=== PATIENT | male | born 1960 | race Caucasian/White ===

== ENCOUNTER → 2019-01-21 13:45 | Outpatient (CLI) | payer OTHER, SELFPAY ==
--- NOTE | 2019-01-21 13:47 | DI.RAD.S_ITS ---
PROCEDURE: XR SCAPULA RT INDICATIONS: Characterize wing scapula TECHNIQUE: 3 views of the scapula were acquired. COMPARISON: None. FINDINGS: Bones: No fractures or dislocations. No suspicious bony lesions. Visualized ribs appear intact. Severe narrowing of the acromioclavicular joint. Soft tissues: Overlying soft tissues appear normal. IMPRESSION: No definite acute radiographic abnormality. If pain persists, consider cross sectional imaging such as CT or MRI for further assessment. Severe acromioclavicular joint degeneration. Dictated by: Shay Gordillo [facility] Interpreted: Vasyl Obregon MD on 01/21/2019 at 17:39 Approved by: Vasyl Obregon M.D. on 01/21/2019 at 17:53
[2019-01-21 14:45] LABS: Blood Urea Nitrogen 20 mg/dL (9-20); Calcium 9.7 mg/dL (8.4-10.2); Carbon Dioxide 28 mmol/L (22-32); Chloride 103 mmol/L (98-107); Cholesterol 178 mg/dL (140-199); Estimated Glomerular Filt Rate > 60.0 mL/min (>60); Glucose 86 mg/dL (70-100); HDL Cholesterol 35 mg/dL (40-60); HEMOLYSIS < 15 (0-50); LDL Cholesterol Calculated 96 mg/dL (<100); Potassium 4.1 mmol/L (3.4-5.1); Sodium 141 mmol/L (137-145); Triglycerides 235 mg/dL (35-150)
[2019-01-21 15:14] LABS: Prostate Specific Antigen Scrn 0.485 ng/mL (0.1-4.0)
[2019-01-21 21:26] LABS: Vitamin D 25 Hydroxy (D3) 36.9 ng/mL (30.0-100.0)
== END ==
PROVIDERS: PCP Student in an Organized Health Care Education/Training Program; Visit Provider Student in an Organized Health Care Education/Training Program
DX: M19.011 Primary osteoarthritis, right shoulder (principal); M95.8 Other specified acquired deformities of musculoskeletal system; E55.9 Vitamin D deficiency, unspecified; N28.9 Disorder of kidney and ureter, unspecified; Z13.220 Encounter for screening for lipoid disorders; Z12.5 Encounter for screening for malignant neoplasm of prostate
CPT/HCPCS: 36415; 73010; 80048; 80061; 82306; G0103

== ENCOUNTER → 2019-01-26 19:21 | Outpatient (CLI) | payer OTHER, SELFPAY ==
--- NOTE | 2019-01-26 19:24 | DI.MRI.S_ITS ---
PROCEDURE: MR THORACIC SPINE WO CON INDICATIONS: Long thoracic nerve lesion, h/o high thoracic compression fx TECHNIQUE: Noncontrast sagittal T1 spine echo and T2 fast spin echo, sagittal STIR, axial T1 and T2 fast spin echo through the thoracic spine. COMPARISON: None. FINDINGS: Image quality: Excellent. Alignment and Curvature: There is normal bony alignment. Bones: Loss of height noted in the T8 vertebral body compatible with compression fracture. Marrow signal the T8 vertebral body is normal indicating compression fracture is chronic. T8 compression fracture results in approximately 30% loss of normal intervertebral body height. No kyphosis or retropulsed fragments associated with the T8 compression fracture. No acute vertebral body compression fractures. No high thoracic compression fracture. Spinal Cord: Visualized spinal cord is normal in size and signal. Paraspinous Soft Tissues: No paravertebral masses. Miscellaneous: Multilevel degenerative disc changes are noted. Small right central T8-T9 disc protrusion. Mild T8-T9 central canal narrowing. Mild bilateral T8-T9 neural foraminal narrowing. No neural impingement. IMPRESSION: 1. Chronic T8 compression fracture resulting in approximately 30% loss normal vertebral body height. No acute vertebral body compression fractures. No high thoracic spine compression fracture. 2. Multilevel degenerative disease. 3. Mild T8-T9 central canal narrowing. 4. Mild bilateral T8-T9 neural foraminal narrowing. 5. No neural impingement. Dictated by: Mary Ricci MD, PhD on 01/27/2019 at 14:52 Approved by: Mary Ricci MD, PhD on 01/27/2019 at 15:02
== END ==
PROVIDERS: PCP Student in an Organized Health Care Education/Training Program; Visit Provider Student in an Organized Health Care Education/Training Program
DX: M48.54XA Collapsed vertebra, not elsewhere classified, thoracic region, initial encounter for fracture (principal); M51.34 Other intervertebral disc degeneration, thoracic region; M48.04 Spinal stenosis, thoracic region; G58.9 Mononeuropathy, unspecified
CPT/HCPCS: 72146

== ENCOUNTER → 2019-04-17 20:28 | Outpatient (CLI) | payer OTHER, SELFPAY ==
--- NOTE | 2019-04-17 20:32 | DI.MRI.S_ITS ---
PROCEDURE: MR SHOULDER RT WO CON INDICATIONS: is not making improvements inphysical therapy after 6 visits TECHNIQUE: Noncontrast oblique coronal T2 fast spin echo with fat saturation, oblique sagittal T1 spin echo and T2 fast spin echo with fat saturation, axial T1 spin echo and T2 fast spin echo with fat saturation through the shoulder. COMPARISON: None. FINDINGS: Image quality: Excellent. Rotator cuff: There is tendinosis and low-grade articular and bursal surface partial-thickness tear involving distal supraspinatus at its insertion the humeral head extending to the musculotendinous junction. Distal infraspinatus tendinosis and very low grade articular surface partial thickness tear is seen. Distal subscapularis tendinosis is also noted. Sagittal images demonstrate no significant muscle atrophy. Bones and bursae: No bone marrow contusions or fractures. Moderate acromioclavicular joint and glenohumeral joint osteoarthritic changes are seen. No pathologic subacromial-subdeltoid or subcoracoid bursal fluid is present. Capsule and soft tissues: In the absence of intra-articular contrast there is suggestion of a focal superior anterior labral tear at 12 to 1:00 position an anterior-inferior labral tear 4 to 6:00 position. The glenohumeral ligaments appear intact. The long head of the biceps tendon demonstrates normal location and morphology. The rotator interval appears normal, without fibrosis. The coracohumeral ligament is normal in thickness. IMPRESSION: 1. Tendinosis and low-grade articular bursal surface partial-thickness tear involving distal supraspinatus extending to musculotendinous junction. The supraspinatus and subscapularis tendinosis. No full-thickness rotator cuff tendon rupture. 2. Moderate acromioclavicular joint osteoarthritis and glenohumeral joint osteoarthritis. 3. Suggestion of focal superior anterior labral tear at 12 to 1:00 position and anterior-inferior labral tear 4 to 6:00 position. Dictated by: Benja Pena M.D. on 04/20/2019 at 10:22 Approved by: Benja Pena M.D. on 04/20/2019 at 10:31
== END ==
PROVIDERS: PCP Student in an Organized Health Care Education/Training Program; Visit Provider Student in an Organized Health Care Education/Training Program
DX: S24.8XXA Injury of other specified nerves of thorax, initial encounter (principal); M75.111 Incomplete rotator cuff tear or rupture of right shoulder, not specified as traumatic; M19.011 Primary osteoarthritis, right shoulder
CPT/HCPCS: 73221

== ENCOUNTER 2019-04-27 09:00 | Outpatient (RCR) | payer OTHER, SELFPAY ==
[2019-03-04 09:52] VITALS: BP 140/88
--- NOTE | 2019-03-04 12:00 | PT.OIE ---
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, initial encounter (03/04/19) Past Medical History (Last Updated 02/21/19 @ 21:19 by Belén Oquendo) Anxiety (Chronic) Depression (Chronic) GERD (gastroesophageal reflux disease) (Chronic) Shoulder pain (Chronic) Past Surgical History (Last Updated 02/21/19 @ 21:19 by Belén Oquendo) Anesthesia (Resolved) History of hernia repair (Resolved ~2011) Visit Care Team Role Provider Type Nikos Diego MD Attending Provider Physician Primary Care Provider Specialty: Internal Medicine Address: [address] [place] [address], [place] [id number] Email: [email or web address] Therapy Initial Evaluation PT-OP-A Visit Information Start: 03/04/19 09:51 Freq: Status: Active Protocol: Document 03/04/19 09:52 AW (Rec: 03/04/19 13:11 AW [email or web address]) Out-Patient Physical Therapy Visit Information Visit Information Visit Type Initial Evaluation Visit Start Time 09:01 Visit Stop Time 09:46 Total Visit Minutes 45 Visit Number 1 Number of LEATHER SCRAPER Visits 0 Evaluation Information Evaluation Date 03/04/19 PT-OP-B Current Condition Start: 03/04/19 09:51 Freq: Status: Active Protocol: Document 03/04/19 09:52 AW (Rec: 03/04/19 13:11 AW [email or web address]) Current Condition History of Current Condition Onset Date 2014 Current Complaints right scapular and neck pain History of Current Condition Don is a 58 yo right- handed man who presents to outpatient physical therapy with complaints of R shoulder pain localized to the scapula which began about 4 years ago. He has a remote history of T8 compression fracture. 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 He describes the pain as achey, 8/10 at worst, 1/10 at best. He states the pain is more noticeable at rest and that, for the most part, he can do the things he needs to do - lifting and carrying heavy weight on either shoulder. His pain tends to be worse at night, interrupting his sleep. When his pain is 8/10, it can take 2 hours to feel better. He has tried ibuprofen, hot, and cold, but nothing other than rest has been helpful to alleviate his pain. Overhead work which is required for his job makes it worse. Pt admits that life stress can increase his pain. Prior Treatments and Tests Pt has had no prior therapy for this condition. MRI last month revealed chronic T8 compression fracture with 30% loss of vertebral height, mild T8-T9 central canal narrowing , mild bilateral T8-T9 neural foramical narrowing, no neural impingement Treatment Goals Patient/Caregiver Goals Pt would like to be able to use his right arm to work overhead without having pain at rest. 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 Personal Factors Other Personal Factors That May Effect Depression, anxiety - Therapy/Recovery controlled with medication PT-OP-C Subjective Start: 03/04/19 09:51 Freq: Status: Active Protocol: Document 03/04/19 09:52 AW (Rec: 03/04/19 13:11 AW [email or web address]) OP-PT Subjective Patient Comments Patient Comments Pt is happy to work with therapy to improve his pain and function Patient Questionnaires Oswestry Low Back Index Oswestry Score 5/50 Oswestry Impairment 1 to 19% Impaired (Score 1-19) OP-PT Pain Assessment Pain Assessment Grid Paper Pain Assessment Grid Completed Yes: shaded at right superior scapula Location right superior scapula Intensity 1 Scale Used Numeric (1 - 10) Description Aching Frequency Intermittent Pain Duration 1-2 hours Pain Aggravating Factors Lifting,Anxiety Other Pain Aggravating Factors overhead activity Pain Alleviating Factors Rest Home Pain Medication Use Pain Medications Used Yes: ibuprofen Home Pain Medication Frequency no longer uses. was ineffective PT-OP-E Functional Tests Start: 03/04/19 09:51 Freq: Status: Active Protocol: Document 03/04/19 09:52 AW (Rec: 03/04/19 13:11 AW [email or web address]) Functional Tests Apley's Scratch Test Action 2- Left T4 Action 2- Right T4 Action 3- Left T8 Action 3- Right L1 PT-OP-F Manual Assessment Start: 03/04/19 09:51 Freq: Status: Active Protocol: Document 03/04/19 09:52 AW (Rec: 03/04/19 13:11 AW [email or web address]) Manual Assessments Soft Tissue Assessment Soft Tissue Mobility Assessment R levator scap insertion and right rhomboids tender to palpation. Joint Mobility Assessment Joint Mobility Assessment Glenohumeral inferior and posterior glides symmetrical left and right with no restriction Other Manual Assessments Other Manual Assessments Scapular glide tested in sidelying revealed excessive lateral glide on the right with some restriction medially PT-OP-G Mobility & Gait Start: 03/04/19 09:51 Freq: Status: Active Protocol: Document 03/04/19 09:52 AW (Rec: 03/04/19 13:11 AW [email or web address]) OP Gait Assessment Gait Gait Assistance Required: Independent Assistive Devices Assistive Device None Gait Deviations General Gait Pattern Within Normal Limits PT-OP-H Neuro Start: 03/04/19 09:51 Freq: Status: Active Protocol: Document 03/04/19 09:52 AW (Rec: 03/04/19 13:11 AW [email or web address]) Sensation Evaluation Gross Sensation Gross Sensation WNL Deep Tendon Reflex & Clonus Assessment Deep Tendon Reflex Left brachioradialis Deep Tendon Reflex 2+ Normal Right brachioradialis Deep Tendon Reflex 2+ Normal Left biceps Deep Tendon Reflex 2+ Normal Right biceps Deep Tendon Reflex 2+ Normal Vital Signs Blood Pressure Sitting Blood Pressure (90/60-120/80 mmHg) 140/88 H Blood Pressure Source Manual Cuff,Left Upper Extremity PT-OP-J Posture/Palpation/Skin Start: 03/04/19 09:51 Freq: Status: Active Protocol: Document 03/04/19 09:52 AW (Rec: 03/04/19 13:11 AW [email or web address]) Posture Evaluation Position Sitting Head/C-Spine Posture Extended,Forward Head T-Spine Posture Increased Kyphosis Shoulder Posture (L) Rounded,(R) Rounded,(L) Forward,(R) Forward Scapula Posture (L) Neutral,(R) Protracted,(R) Winged Comments Posture Comments Pt has a notable step off at the cervical/thoracic junction with forward head. R scapula sits ~3.5 from spinous processes, L scapula 3. Palpation Assessment Location right shoulder Palpation Findings Tenderness,Trigger Point Palpation Details Hypertonicity of R rhomboids. Trigger point at R levator scap insertion. PT-OP-K Range of Motion Start: 03/04/19 09:51 Freq: Status: Active Protocol: Document 03/04/19 09:52 AW (Rec: 03/04/19 13:11 AW [email or web address]) Cervical Spine Range of Motion Cervical Spine Active Degrees Testing Position Sitting Lateral Flexion Left 18 Lateral Flexion Right 18 ROM Limitations Soft Tissue Tightness Comments Flexion, extension, rotation all WFL Shoulder Goniometric Range of Motion Shoulder Left Active Testing Position Sitting Flexion 170 Abduction 168 External Rotation at 0 degrees Abduction 70 Internal Rotation Behind Back (text) T8 Right Active Testing Position Sitting Flexion 170 Abduction 165 External Rotation at 0 degrees Abduction 65 Internal Rotation Behind Back (text) L1 Elbow/Forearm Range of Motion Elbow/Forearm ROM Limitations Comments Elbow ROM WNL with no pain PT-OP-L Special Tests Start: 03/04/19 09:51 Freq: Status: Active Protocol: Document 03/04/19 09:52 AW (Rec: 03/04/19 13:11 AW [email or web address]) Special Tests Cervical Spine Special Tests Spurling's Test Test Results negative Comments bilaterally Shoulder Special Tests Empty Can Test Results negative Comments bilaterally Coles Lukas Impingement Test Results negative Comments bilaterally PT-OP-M Strength Start: 03/04/19 09:51 Freq: Status: Active Protocol: Document 03/04/19 09:52 AW (Rec: 03/04/19 13:11 AW [email or web address]) Scapula Strength Scapula Manual Muscle Testing bilateral Elevation (C4) 5 Normal Adduction 4 Good Abduction 4+ Good+ Depression 4- Good- Comments Manual muscle testing of middle and lower traps performed in supine with 4/5 MT and 4-/5 LT. Protraction tested in supine with 4/5 RUE, 4+/5 LUE. Shoulder Strength Shoulder Manual Muscle Testing Right Flexion 5 Normal Abduction (C5) 4+ Good+ External Rotation 5 Normal Internal Rotation 5 Normal Comments No pain with resistive testing Left Flexion 5 Normal Extension 5 Normal External Rotation 5 Normal Internal Rotation 5 Normal Comments Resisted external rotation produced some pain at anterior shoulder. PT-OP-Q Treatments Start: 03/04/19 09:51 Freq: Status: Active Protocol: Document 03/04/19 09:52 AW (Rec: 03/04/19 13:11 AW [email or web address]) Therapeutic Exercises Supine Exercises snow bryan stretch Supine Exercise Name snow bryan stretch Side bilateral Equipment Used rolled towel under spine Reps/Minutes 2 min Comments pt instructed to move arms up/ down in abduction until finding restriction Sitting Exercises scapular retraction Sitting Exercise Name scapular retraction Side bilateral Reps/Minutes 2x15 reps levator scapula stretch Sitting Exercise Name levator scapula stretch Side right Resistance manual Reps/Minutes 30 sec x 4 Self-Care/Home Management Treatment Education Patient Education Home Exercise Program Other Education snow bryan stretch for pecs levator scap stretch gentle scapular retraction PT-OP-T Assessment and Plan Start: 03/04/19 09:51 Freq: Status: Active Protocol: Document 03/04/19 09:52 AW (Rec: 03/04/19 13:11 AW [email or web address]) Physical Therapy Assessment Rehab Potential Rehabilitation Potential Good Evaluation Complexity Number of Personal Factors/Comorbidities 1-2 Number of Body Systems Impaired 1-2 Clinical Presentation at Evaluation Stable Impairments Impairments Activity Tolerance,Functional Activities,Pain,Posture,ROM, Soft Tissue Mobility,Strength Other Concerns Barriers to Rehabilitation Pt works long days with heavy overhead activity. Goals 4 Impairment pain Short Term Goal (STG) Pt will be able to work full day with activity modifications and report 5/10 pain or less during rest periods. STG Duration 04/01/19 Blanket Folder Goal (LTG) Pt will be able to work full day with unrestricted overhead activity and report 3/10 pain or less during rest periods 3 Impairment scapular strength Short Term Goal (STG) Pt will improve middle trap strength from 4/5 to 5/5 for improved mechanics in overhead work STG Duration 04/01/19 2 Impairment interrupted sleep Short Term Goal (STG) Pt will sleep >3/4 full night for improved healing and catholic STG Duration 03/25/19 Blanket Folder Goal (LTG) Pt will sleep full night without pain LTG Duration 04/29/19 1 Impairment lacks HEP Short Term Goal (STG) Pt will be independent with HEP. STG Duration 03/18/19 Assessment Summary Assessment Don is a 58 yo man who presents to outpatient PT with complaints of right scapular pain for 4 years. His pain is moderately irritable as he says he does not notice much pain during activity, but it worsens quickly and takes ~2 hours to feel better. On observation, his right scapula is laterally rotated at least 1/2 greater than the right with mild winging at the medial border. He also has a thickening of the bony prominence at the midpoint of the right scapular spine. Palpation reveals a trigger point at R levator scapulae insertion. Don' pain was likely precipitated by heavy, repetitive overhead work ( scraping a ceiling) which lasted about a month approximately 4 years ago. His pain is perpetuated by long work days which often involve the same motions as well as lifting and carrying heavy objects. Pt presents with middle and lower trapezius weakness, decreased upward scapular rotation on the right compared with the left, shortened pectoral fibers, and significantly rounded shoulders. Scapular protraction strength was less than in other planes, but not significantly weak. Pt is likely suffering from habitual postures, shortened pectoral muscles, hypertonicity of right levator scapulae, and poor scapular dynamics especially with overhead movements. He will benefit from skillled PT to address these impairments and to improve his ability to engage in full-time work with less pain and to improve sleep quality. Physical Therapy Plan Frequency and Duration Frequency of Treatment 2x/Week Duration of Treatment 8 weeks Plan of Care Start Date 03/04/19 Plan of Care End Date 04/29/19 Therapeutic Interventions Therapeutic Interventions Home Exercise Program,Joint Mobilizations,Manual Therapy, Neuromuscular Re-education, Patient/Caregiver Education, Self-Care/Home Management, Sensory Integration,Soft Tissue Mobilization,Taping, Therapeutic Activities, Therapeutic Exercises Modalities Cold Pack/Ice Massage,Electric Stimulation,Hot Packs Next Visit Focus/Plan Next Note Type Treatment Note Next Visit Plan Focus on pectoral and levator scap muscle length, strengthening scapular muscles , and postural awareness
--- NOTE | 2019-03-09 12:30 | PT.OTN ---
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, initial encounter (03/09/19) Physical Therapy Treatment Note PT-OP-A Visit Information Start: 03/04/19 09:51 Freq: Status: Active Protocol: Document 03/09/19 12:13 AW (Rec: 03/09/19 12:30 AW [email or web address]) Out-Patient Physical Therapy Visit Information Visit Information Visit Type Treatment Note Visit Start Time 09:00 Visit Stop Time 09:41 Total Visit Minutes 41 Visit Number 2 Number of PUMP INSTALLATION AND SERVICER Visits 0 PT-OP-B Current Condition Start: 03/04/19 09:51 Freq: Status: Active Protocol: Document 03/04/19 09:52 AW (Rec: 03/04/19 13:11 AW [email or web address]) Current Condition History of Current Condition Onset Date 2014 Current Complaints right scapular and neck pain History of Current Condition Don is a 58 yo right- handed man who presents to outpatient physical therapy with complaints of R shoulder pain localized to the scapula which began about 4 years ago. He has a remote history of T8 compression fracture. 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 He describes the pain as achey, 8/10 at worst, 1/10 at best. He states the pain is more noticeable at rest and that, for the most part, he can do the things he needs to do - lifting and carrying heavy weight on either shoulder. His pain tends to be worse at night, interrupting his sleep. When his pain is 8/10, it can take 2 hours to feel better. He has tried ibuprofen, hot, and cold, but nothing other than rest has been helpful to alleviate his pain. Overhead work which is required for his job makes it worse. Pt admits that life stress can increase his pain. Prior Treatments and Tests Pt has had no prior therapy for this condition. MRI last month revealed chronic T8 compression fracture with 30% loss of vertebral height, mild T8-T9 central canal narrowing , mild bilateral T8-T9 neural foramical narrowing, no neural impingement Treatment Goals Patient/Caregiver Goals Pt would like to be able to use his right arm to work overhead without having pain at rest. 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 Personal Factors Other Personal Factors That May Effect Depression, anxiety - Therapy/Recovery controlled with medication PT-OP-C Subjective Start: 03/04/19 09:51 Freq: Status: Active Protocol: Document 03/09/19 12:13 AW (Rec: 03/09/19 12:30 AW [email or web address]) OP-PT Subjective Patient Comments Patient Comments Jose has engaged in less overhead work this week (by chance), but continues to work long days and to experience pain at night. He is doing his HEP 2-3 times per day PT-OP-E Functional Tests Start: 03/04/19 09:51 Freq: Status: Active Protocol: Document 03/04/19 09:52 AW (Rec: 03/04/19 13:11 AW [email or web address]) Functional Tests Apley's Scratch Test Action 2- Left T4 Action 2- Right T4 Action 3- Left T8 Action 3- Right L1 PT-OP-F Manual Assessment Start: 03/04/19 09:51 Freq: Status: Active Protocol: Document 03/04/19 09:52 AW (Rec: 03/04/19 13:11 AW [email or web address]) Manual Assessments Soft Tissue Assessment Soft Tissue Mobility Assessment R levator scap insertion and right rhomboids tender to palpation. Joint Mobility Assessment Joint Mobility Assessment Glenohumeral inferior and posterior glides symmetrical left and right with no restriction Other Manual Assessments Other Manual Assessments Scapular glide tested in sidelying revealed excessive lateral glide on the right with some restriction medially PT-OP-G Mobility & Gait Start: 03/04/19 09:51 Freq: Status: Active Protocol: Document 03/04/19 09:52 AW (Rec: 03/04/19 13:11 AW [email or web address]) OP Gait Assessment Gait Gait Assistance Required: Independent Assistive Devices Assistive Device None Gait Deviations General Gait Pattern Within Normal Limits PT-OP-H Neuro Start: 03/04/19 09:51 Freq: Status: Active Protocol: Document 03/04/19 09:52 AW (Rec: 03/04/19 13:11 AW [email or web address]) Sensation Evaluation Gross Sensation Gross Sensation WNL Deep Tendon Reflex & Clonus Assessment Deep Tendon Reflex Left brachioradialis Deep Tendon Reflex 2+ Normal Right brachioradialis Deep Tendon Reflex 2+ Normal Left biceps Deep Tendon Reflex 2+ Normal Right biceps Deep Tendon Reflex 2+ Normal Vital Signs Blood Pressure Sitting Blood Pressure (90/60-120/80 mmHg) 140/88 H Blood Pressure Source Manual Cuff,Left Upper Extremity PT-OP-J Posture/Palpation/Skin Start: 03/04/19 09:51 Freq: Status: Active Protocol: Document 03/04/19 09:52 AW (Rec: 03/04/19 13:11 AW [email or web address]) Posture Evaluation Position Sitting Head/C-Spine Posture Extended,Forward Head T-Spine Posture Increased Kyphosis Shoulder Posture (L) Rounded,(R) Rounded,(L) Forward,(R) Forward Scapula Posture (L) Neutral,(R) Protracted,(R) Winged Comments Posture Comments Pt has a notable step off at the cervical/thoracic junction with forward head. R scapula sits ~3.5 from spinous processes, L scapula 3. Palpation Assessment Location right shoulder Palpation Findings Tenderness,Trigger Point Palpation Details Hypertonicity of R rhomboids. Trigger point at R levator scap insertion. PT-OP-K Range of Motion Start: 03/04/19 09:51 Freq: Status: Active Protocol: Document 03/04/19 09:52 AW (Rec: 03/04/19 13:11 AW [email or web address]) Cervical Spine Range of Motion Cervical Spine Active Degrees Testing Position Sitting Lateral Flexion Left 18 Lateral Flexion Right 18 ROM Limitations Soft Tissue Tightness Comments Flexion, extension, rotation all WFL Shoulder Goniometric Range of Motion Shoulder Left Active Testing Position Sitting Flexion 170 Abduction 168 External Rotation at 0 degrees Abduction 70 Internal Rotation Behind Back (text) T8 Right Active Testing Position Sitting Flexion 170 Abduction 165 External Rotation at 0 degrees Abduction 65 Internal Rotation Behind Back (text) L1 Elbow/Forearm Range of Motion Elbow/Forearm ROM Limitations Comments Elbow ROM WNL with no pain PT-OP-L Special Tests Start: 03/04/19 09:51 Freq: Status: Active Protocol: Document 03/04/19 09:52 AW (Rec: 03/04/19 13:11 AW [email or web address]) Special Tests Cervical Spine Special Tests Spurling's Test Test Results negative Comments bilaterally Shoulder Special Tests Empty Can Test Results negative Comments bilaterally Coles Lukas Impingement Test Results negative Comments bilaterally PT-OP-M Strength Start: 03/04/19 09:51 Freq: Status: Active Protocol: Document 03/04/19 09:52 AW (Rec: 03/04/19 13:11 AW [email or web address]) Scapula Strength Scapula Manual Muscle Testing bilateral Elevation (C4) 5 Normal Adduction 4 Good Abduction 4+ Good+ Depression 4- Good- Comments Manual muscle testing of middle and lower traps performed in supine with 4/5 MT and 4-/5 LT. Protraction tested in supine with 4/5 RUE, 4+/5 LUE. Shoulder Strength Shoulder Manual Muscle Testing Right Flexion 5 Normal Abduction (C5) 4+ Good+ External Rotation 5 Normal Internal Rotation 5 Normal Comments No pain with resistive testing Left Flexion 5 Normal Extension 5 Normal External Rotation 5 Normal Internal Rotation 5 Normal Comments Resisted external rotation produced some pain at anterior shoulder. PT-OP-Q Treatments Start: 03/04/19 09:51 Freq: Status: Active Protocol: Document 03/09/19 12:13 AW (Rec: 03/09/19 12:30 AW [email or web address]) Cardio Equipment Upper Body Ergometer (UBE) Duration (Minutes) 6 RPM 60 Height 5 Therapeutic Exercises Supine Exercises deep neck flexor endurance Supine Exercise Name deep neck flexor endurance Side bilateral Reps/Minutes 10 second hold x 8 Comments holding head off table with chin tuck until SCM takes over ; added to HEP Prone Exercises prone GH extension Prone Exercise Name prone GH extension Side bilateral Reps/Minutes 2x10 reps Comments pt cued to focus on scapular retraction Sidelying Exercises depression/retraction Sidelying Exercise Name depression/retraction Side right Resistance manual Reps/Minutes 3x10 reps Comments left sidelying;quick stretch into elev/prot with cues to pull back vs resis Sitting Exercises cervical retraction Sitting Exercise Name cervical retraction Side bilateral Reps/Minutes 2x10 reps scapular retraction Sitting Exercise Name scapular retraction Side bilateral Reps/Minutes 2x15 reps Manual Therapy Treatment Soft Tissue Mobilization cervical, R rhomboids, R levator scap Body Location cervical, R rhomboids, R levator scap Mobilization Type Myofascial Release,Sustained Pressure,Trigger Point Release Intensity/Depth Moderate Comments global cervical paraspinals and subocc; specific attention to R levator scap trigger point; pin and stretch R lev scap; bilateral upper trap manual stretch Self-Care/Home Management Treatment Education Patient Education Home Exercise Program Other Education snow bryan stretch for pecs levator scap stretch gentle scapular retraction ADDED: deep cervical flexor endurance PT-OP-T Assessment and Plan Start: 03/04/19 09:51 Freq: Status: Active Protocol: Document 03/09/19 12:13 AW (Rec: 03/09/19 12:30 AW [email or web address]) Physical Therapy Assessment Assessment Summary Assessment Jose denies any worsening of symptoms in past week. He is tolerating HEP well. Scapular dyskinesis, levator scap decreased length and heavy upper trap recruitment contributing to onoing pain. Physical Therapy Plan Next Visit Focus/Plan Next Note Type Treatment Note Next Visit Plan Continue to focus on pectoral and levator scap muscle length , strengthening scapular muscles, and postural awareness
--- NOTE | 2019-03-11 12:08 | PT.OTN ---
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, initial encounter (03/11/19) Physical Therapy Treatment Note PT-OP-A Visit Information Start: 03/04/19 09:51 Freq: Status: Active Protocol: Document 03/11/19 11:42 AW (Rec: 03/11/19 12:08 AW [email or web address]) Out-Patient Physical Therapy Visit Information Visit Information Visit Type Treatment Note Visit Start Time 09:00 Visit Stop Time 09:39 Total Visit Minutes 39 Visit Number 3 Number of FOOD INSPECTOR Visits 0 PT-OP-B Current Condition Start: 03/04/19 09:51 Freq: Status: Active Protocol: Document 03/04/19 09:52 AW (Rec: 03/04/19 13:11 AW [email or web address]) Current Condition History of Current Condition Onset Date 2014 Current Complaints right scapular and neck pain History of Current Condition Don is a 58 yo right- handed man who presents to outpatient physical therapy with complaints of R shoulder pain localized to the scapula which began about 4 years ago. He has a remote history of T8 compression fracture. 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 He describes the pain as achey, 8/10 at worst, 1/10 at best. He states the pain is more noticeable at rest and that, for the most part, he can do the things he needs to do - lifting and carrying heavy weight on either shoulder. His pain tends to be worse at night, interrupting his sleep. When his pain is 8/10, it can take 2 hours to feel better. He has tried ibuprofen, hot, and cold, but nothing other than rest has been helpful to alleviate his pain. Overhead work which is required for his job makes it worse. Pt admits that life stress can increase his pain. Prior Treatments and Tests Pt has had no prior therapy for this condition. MRI last month revealed chronic T8 compression fracture with 30% loss of vertebral height, mild T8-T9 central canal narrowing , mild bilateral T8-T9 neural foramical narrowing, no neural impingement Treatment Goals Patient/Caregiver Goals Pt would like to be able to use his right arm to work overhead without having pain at rest. 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 Personal Factors Other Personal Factors That May Effect Depression, anxiety - Therapy/Recovery controlled with medication PT-OP-C Subjective Start: 03/04/19 09:51 Freq: Status: Active Protocol: Document 03/11/19 11:42 AW (Rec: 03/11/19 12:08 AW [email or web address]) OP-PT Subjective Patient Comments Patient Comments Jose reports doing his HEP at least once per day. He continues to work long days involving lifting, but has declined much overhead work lately. He is still experiencing pain when he arrives home from work. PT-OP-E Functional Tests Start: 03/04/19 09:51 Freq: Status: Active Protocol: Document 03/04/19 09:52 AW (Rec: 03/04/19 13:11 AW [email or web address]) Functional Tests Apley's Scratch Test Action 2- Left T4 Action 2- Right T4 Action 3- Left T8 Action 3- Right L1 PT-OP-F Manual Assessment Start: 03/04/19 09:51 Freq: Status: Active Protocol: Document 03/04/19 09:52 AW (Rec: 03/04/19 13:11 AW [email or web address]) Manual Assessments Soft Tissue Assessment Soft Tissue Mobility Assessment R levator scap insertion and right rhomboids tender to palpation. Joint Mobility Assessment Joint Mobility Assessment Glenohumeral inferior and posterior glides symmetrical left and right with no restriction Other Manual Assessments Other Manual Assessments Scapular glide tested in sidelying revealed excessive lateral glide on the right with some restriction medially PT-OP-G Mobility & Gait Start: 03/04/19 09:51 Freq: Status: Active Protocol: Document 03/04/19 09:52 AW (Rec: 03/04/19 13:11 AW [email or web address]) OP Gait Assessment Gait Gait Assistance Required: Independent Assistive Devices Assistive Device None Gait Deviations General Gait Pattern Within Normal Limits PT-OP-H Neuro Start: 03/04/19 09:51 Freq: Status: Active Protocol: Document 03/04/19 09:52 AW (Rec: 03/04/19 13:11 AW [email or web address]) Sensation Evaluation Gross Sensation Gross Sensation WNL Deep Tendon Reflex & Clonus Assessment Deep Tendon Reflex Left brachioradialis Deep Tendon Reflex 2+ Normal Right brachioradialis Deep Tendon Reflex 2+ Normal Left biceps Deep Tendon Reflex 2+ Normal Right biceps Deep Tendon Reflex 2+ Normal Vital Signs Blood Pressure Sitting Blood Pressure (90/60-120/80 mmHg) 140/88 H Blood Pressure Source Manual Cuff,Left Upper Extremity PT-OP-J Posture/Palpation/Skin Start: 03/04/19 09:51 Freq: Status: Active Protocol: Document 03/04/19 09:52 AW (Rec: 03/04/19 13:11 AW [email or web address]) Posture Evaluation Position Sitting Head/C-Spine Posture Extended,Forward Head T-Spine Posture Increased Kyphosis Shoulder Posture (L) Rounded,(R) Rounded,(L) Forward,(R) Forward Scapula Posture (L) Neutral,(R) Protracted,(R) Winged Comments Posture Comments Pt has a notable step off at the cervical/thoracic junction with forward head. R scapula sits ~3.5 from spinous processes, L scapula 3. Palpation Assessment Location right shoulder Palpation Findings Tenderness,Trigger Point Palpation Details Hypertonicity of R rhomboids. Trigger point at R levator scap insertion. PT-OP-K Range of Motion Start: 03/04/19 09:51 Freq: Status: Active Protocol: Document 03/04/19 09:52 AW (Rec: 03/04/19 13:11 AW [email or web address]) Cervical Spine Range of Motion Cervical Spine Active Degrees Testing Position Sitting Lateral Flexion Left 18 Lateral Flexion Right 18 ROM Limitations Soft Tissue Tightness Comments Flexion, extension, rotation all WFL Shoulder Goniometric Range of Motion Shoulder Left Active Testing Position Sitting Flexion 170 Abduction 168 External Rotation at 0 degrees Abduction 70 Internal Rotation Behind Back (text) T8 Right Active Testing Position Sitting Flexion 170 Abduction 165 External Rotation at 0 degrees Abduction 65 Internal Rotation Behind Back (text) L1 Elbow/Forearm Range of Motion Elbow/Forearm ROM Limitations Comments Elbow ROM WNL with no pain PT-OP-L Special Tests Start: 03/04/19 09:51 Freq: Status: Active Protocol: Document 03/04/19 09:52 AW (Rec: 03/04/19 13:11 AW [email or web address]) Special Tests Cervical Spine Special Tests Spurling's Test Test Results negative Comments bilaterally Shoulder Special Tests Empty Can Test Results negative Comments bilaterally Coles Lukas Impingement Test Results negative Comments bilaterally PT-OP-M Strength Start: 03/04/19 09:51 Freq: Status: Active Protocol: Document 03/04/19 09:52 AW (Rec: 03/04/19 13:11 AW [email or web address]) Scapula Strength Scapula Manual Muscle Testing bilateral Elevation (C4) 5 Normal Adduction 4 Good Abduction 4+ Good+ Depression 4- Good- Comments Manual muscle testing of middle and lower traps performed in supine with 4/5 MT and 4-/5 LT. Protraction tested in supine with 4/5 RUE, 4+/5 LUE. Shoulder Strength Shoulder Manual Muscle Testing Right Flexion 5 Normal Abduction (C5) 4+ Good+ External Rotation 5 Normal Internal Rotation 5 Normal Comments No pain with resistive testing Left Flexion 5 Normal Extension 5 Normal External Rotation 5 Normal Internal Rotation 5 Normal Comments Resisted external rotation produced some pain at anterior shoulder. PT-OP-Q Treatments Start: 03/04/19 09:51 Freq: Status: Active Protocol: Document 03/11/19 11:42 AW (Rec: 03/11/19 12:08 AW [email or web address]) Therapeutic Exercises Supine Exercises deep neck flexor endurance Supine Exercise Name deep neck flexor endurance Side bilateral Reps/Minutes 10 second hold x 6 Comments added to HEP Prone Exercises prone GH extension Prone Exercise Name prone GH extension Side bilateral Resistance 4# db Reps/Minutes 2x10 reps Comments improved scapular posture with fewer cues Sidelying Exercises depression/retraction Sidelying Exercise Name depression/retraction Side right Resistance manual Reps/Minutes 2x10 reps Comments left sidelying;quick stretch into elev/prot with cues to pull back vs resis Sitting Exercises upper trap stretch Sitting Exercise Name upper trap stretch Side bilateral Resistance manual Reps/Minutes 30 second hold x 4 Comments added to HEP pulleys Sitting Exercise Name pulleys Side bilateral Reps/Minutes 5 minutes Comments flexion, abduction, scaption with cues for shoulder posture Therapeutic Activity Therapeutic Activity diaphragmatic breathing Name diaphragmatic breathing Reps/Minutes 8 minutes Comments Provided education on parasympathetic response to stress and relationship to pain along with education on muscles of respiration. Introduced diaphragmatic breathing for stress relief. Manual Therapy Treatment Soft Tissue Mobilization cervical, R rhomboids, R levator scap Body Location cervical, R rhomboids, R levator scap Mobilization Type Myofascial Release,Sustained Pressure,Trigger Point Release Intensity/Depth Moderate Comments global cervical paraspinals and subocc; R lev scap less irritable/dense today; pin and stretch R lev scap; bilateral upper trap manual stretch Self-Care/Home Management Treatment Education Patient Education Home Exercise Program Other Education snow bryan stretch for pecs levator scap stretch gentle scapular retraction deep cervical flexor endurance ADDED: seated upper trap stretch PT-OP-T Assessment and Plan Start: 03/04/19 09:51 Freq: Status: Active Protocol: Document 03/11/19 11:42 AW (Rec: 03/11/19 12:08 AW [email or web address]) Physical Therapy Assessment Assessment Summary Assessment Pt's pattern of pain symptoms (none with activity, increased with rest periods/stressful thoughts) may be be improved with physiological quieting techniques. Spent time today introducing diaphragmatic breathing techniques and encouraged pt to spend 5 minutes upon return to home at night focusing on quiet breathing. Physical Therapy Plan Frequency and Duration Frequency of Treatment 2x/Week Duration of Treatment 8 weeks Plan of Care Start Date 03/04/19 Plan of Care End Date 04/29/19 Therapeutic Interventions Therapeutic Interventions Home Exercise Program,Joint Mobilizations,Manual Therapy, Neuromuscular Re-education, Patient/Caregiver Education, Self-Care/Home Management, Sensory Integration,Soft Tissue Mobilization,Taping, Therapeutic Activities, Therapeutic Exercises Modalities Cold Pack/Ice Massage,Electric Stimulation,Hot Packs Next Visit Focus/Plan Next Note Type Treatment Note Next Visit Plan Inquire about effect of breathing exercises on overall pain. Continue to focus on muscle length, strength of scapular muscles, and postural awareness
--- NOTE | 2019-03-16 17:35 | PT.OTN ---
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, initial encounter (03/16/19) Physical Therapy Treatment Note PT-OP-A Visit Information Start: 03/04/19 09:51 Freq: Status: Active Protocol: Document 03/16/19 17:19 AW (Rec: 03/16/19 17:35 AW [email or web address]) Out-Patient Physical Therapy Visit Information Visit Information Visit Type Treatment Note Visit Start Time 09:00 Visit Stop Time 09:43 Total Visit Minutes 43 Visit Number 4 Number of COPPER MINER BLASTING Visits 0 PT-OP-B Current Condition Start: 03/04/19 09:51 Freq: Status: Active Protocol: Document 03/04/19 09:52 AW (Rec: 03/04/19 13:11 AW [email or web address]) Current Condition History of Current Condition Onset Date 2014 Current Complaints right scapular and neck pain History of Current Condition Don is a 58 yo right- handed man who presents to outpatient physical therapy with complaints of R shoulder pain localized to the scapula which began about 4 years ago. He has a remote history of T8 compression fracture. 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 He describes the pain as achey, 8/10 at worst, 1/10 at best. He states the pain is more noticeable at rest and that, for the most part, he can do the things he needs to do - lifting and carrying heavy weight on either shoulder. His pain tends to be worse at night, interrupting his sleep. When his pain is 8/10, it can take 2 hours to feel better. He has tried ibuprofen, hot, and cold, but nothing other than rest has been helpful to alleviate his pain. Overhead work which is required for his job makes it worse. Pt admits that life stress can increase his pain. Prior Treatments and Tests Pt has had no prior therapy for this condition. MRI last month revealed chronic T8 compression fracture with 30% loss of vertebral height, mild T8-T9 central canal narrowing , mild bilateral T8-T9 neural foramical narrowing, no neural impingement Treatment Goals Patient/Caregiver Goals Pt would like to be able to use his right arm to work overhead without having pain at rest. 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 Personal Factors Other Personal Factors That May Effect Depression, anxiety - Therapy/Recovery controlled with medication PT-OP-C Subjective Start: 03/04/19 09:51 Freq: Status: Active Protocol: Document 03/16/19 17:19 AW (Rec: 03/16/19 17:35 AW [email or web address]) OP-PT Subjective Patient Comments Patient Comments Jose spent Saturday working on his back underneath a sink with his arms overhead. When he came home that night, he was flared up. He has been trying to incorporate diaphragmatic breathing techniques when noticing stress and he beleives it has been somewhat helpful. PT-OP-E Functional Tests Start: 03/04/19 09:51 Freq: Status: Active Protocol: Document 03/04/19 09:52 AW (Rec: 03/04/19 13:11 AW [email or web address]) Functional Tests Apley's Scratch Test Action 2- Left T4 Action 2- Right T4 Action 3- Left T8 Action 3- Right L1 PT-OP-F Manual Assessment Start: 03/04/19 09:51 Freq: Status: Active Protocol: Document 03/04/19 09:52 AW (Rec: 03/04/19 13:11 AW [email or web address]) Manual Assessments Soft Tissue Assessment Soft Tissue Mobility Assessment R levator scap insertion and right rhomboids tender to palpation. Joint Mobility Assessment Joint Mobility Assessment Glenohumeral inferior and posterior glides symmetrical left and right with no restriction Other Manual Assessments Other Manual Assessments Scapular glide tested in sidelying revealed excessive lateral glide on the right with some restriction medially PT-OP-G Mobility & Gait Start: 03/04/19 09:51 Freq: Status: Active Protocol: Document 03/04/19 09:52 AW (Rec: 03/04/19 13:11 AW [email or web address]) OP Gait Assessment Gait Gait Assistance Required: Independent Assistive Devices Assistive Device None Gait Deviations General Gait Pattern Within Normal Limits PT-OP-H Neuro Start: 03/04/19 09:51 Freq: Status: Active Protocol: Document 03/04/19 09:52 AW (Rec: 03/04/19 13:11 AW [email or web address]) Sensation Evaluation Gross Sensation Gross Sensation WNL Deep Tendon Reflex & Clonus Assessment Deep Tendon Reflex Left brachioradialis Deep Tendon Reflex 2+ Normal Right brachioradialis Deep Tendon Reflex 2+ Normal Left biceps Deep Tendon Reflex 2+ Normal Right biceps Deep Tendon Reflex 2+ Normal Vital Signs Blood Pressure Sitting Blood Pressure (90/60-120/80 mmHg) 140/88 H Blood Pressure Source Manual Cuff,Left Upper Extremity PT-OP-J Posture/Palpation/Skin Start: 03/04/19 09:51 Freq: Status: Active Protocol: Document 03/04/19 09:52 AW (Rec: 03/04/19 13:11 AW [email or web address]) Posture Evaluation Position Sitting Head/C-Spine Posture Extended,Forward Head T-Spine Posture Increased Kyphosis Shoulder Posture (L) Rounded,(R) Rounded,(L) Forward,(R) Forward Scapula Posture (L) Neutral,(R) Protracted,(R) Winged Comments Posture Comments Pt has a notable step off at the cervical/thoracic junction with forward head. R scapula sits ~3.5 from spinous processes, L scapula 3. Palpation Assessment Location right shoulder Palpation Findings Tenderness,Trigger Point Palpation Details Hypertonicity of R rhomboids. Trigger point at R levator scap insertion. PT-OP-K Range of Motion Start: 03/04/19 09:51 Freq: Status: Active Protocol: Document 03/04/19 09:52 AW (Rec: 03/04/19 13:11 AW [email or web address]) Cervical Spine Range of Motion Cervical Spine Active Degrees Testing Position Sitting Lateral Flexion Left 18 Lateral Flexion Right 18 ROM Limitations Soft Tissue Tightness Comments Flexion, extension, rotation all WFL Shoulder Goniometric Range of Motion Shoulder Left Active Testing Position Sitting Flexion 170 Abduction 168 External Rotation at 0 degrees Abduction 70 Internal Rotation Behind Back (text) T8 Right Active Testing Position Sitting Flexion 170 Abduction 165 External Rotation at 0 degrees Abduction 65 Internal Rotation Behind Back (text) L1 Elbow/Forearm Range of Motion Elbow/Forearm ROM Limitations Comments Elbow ROM WNL with no pain PT-OP-L Special Tests Start: 03/04/19 09:51 Freq: Status: Active Protocol: Document 03/04/19 09:52 AW (Rec: 03/04/19 13:11 AW [email or web address]) Special Tests Cervical Spine Special Tests Spurling's Test Test Results negative Comments bilaterally Shoulder Special Tests Empty Can Test Results negative Comments bilaterally Coles Lukas Impingement Test Results negative Comments bilaterally PT-OP-M Strength Start: 03/04/19 09:51 Freq: Status: Active Protocol: Document 03/04/19 09:52 AW (Rec: 03/04/19 13:11 AW [email or web address]) Scapula Strength Scapula Manual Muscle Testing bilateral Elevation (C4) 5 Normal Adduction 4 Good Abduction 4+ Good+ Depression 4- Good- Comments Manual muscle testing of middle and lower traps performed in supine with 4/5 MT and 4-/5 LT. Protraction tested in supine with 4/5 RUE, 4+/5 LUE. Shoulder Strength Shoulder Manual Muscle Testing Right Flexion 5 Normal Abduction (C5) 4+ Good+ External Rotation 5 Normal Internal Rotation 5 Normal Comments No pain with resistive testing Left Flexion 5 Normal Extension 5 Normal External Rotation 5 Normal Internal Rotation 5 Normal Comments Resisted external rotation produced some pain at anterior shoulder. PT-OP-Q Treatments Start: 03/04/19 09:51 Freq: Status: Active Protocol: Document 03/16/19 17:19 AW (Rec: 03/16/19 17:35 AW [email or web address]) Cardio Equipment Upper Body Ergometer (UBE) Duration (Minutes) 6 RPM 75 Height 5 Therapeutic Exercises Supine Exercises scapular protraction Supine Exercise Name scapular protraction Side bilateral Resistance 5# db Reps/Minutes 3x15 reps Comments RUE lags behind, cues for equal punch bilat Prone Exercises prone Y Prone Exercise Name prone Y lift Side bilateral Reps/Minutes 2x10 reps Comments cues for scapular posture prone W Prone Exercise Name prone W lift Side bilateral Reps/Minutes 2x10 reps Standing Exercises shoulder extension Standing Exercise Name shoulder extension Side bilateral Resistance level 3 TB Reps/Minutes 2x15 reps Comments cues for scap retraction shoulder row Standing Exercise Name shoulder row Side bilateral Resistance level 3 TB Reps/Minutes 2x15 reps Comments cues for scapular retraction resisted protraction Standing Exercise Name resisted protraction Side right Resistance manual Reps/Minutes 2x10 reps Comments pt hand on wall, cued to protract; PT manually retracting/down rotating Manual Therapy Treatment Soft Tissue Mobilization cervical, R rhomboids, R levator scap Body Location cervical, R rhomboids, R levator scap Mobilization Type Myofascial Release,Sustained Pressure,Trigger Point Release Intensity/Depth Moderate Body Position Hooklying Comments global cervical paraspinals and subocc; R lev scap less irritable/dense today; pin and stretch R lev scap; bilateral upper trap manual stretch Self-Care/Home Management Treatment Education Patient Education Home Exercise Program Other Education snow bryan stretch for pecs levator scap stretch gentle scapular retraction deep cervical flexor endurance seated upper trap stretch ADDED: TB retraction, TB shoulder extension, supine scapular protraction PT-OP-T Assessment and Plan Start: 03/04/19 09:51 Freq: Status: Active Protocol: Document 03/16/19 17:19 AW (Rec: 03/16/19 17:35 AW [email or web address]) Physical Therapy Assessment Goals 4 Impairment pain Short Term Goal (STG) Pt will be able to work full day with activity modifications and report 5/10 pain or less during rest periods. STG Duration 04/01/19 Half-Way Goal (LTG) Pt will be able to work full day with unrestricted overhead activity and report 3/10 pain or less during rest periods 3 Impairment scapular strength Short Term Goal (STG) Pt will improve middle trap strength from 4/5 to 5/5 for improved mechanics in overhead work STG Duration 04/01/19 2 Impairment interrupted sleep Short Term Goal (STG) Pt will sleep >3/4 full night for improved healing and rastafarian STG Duration 03/25/19 Half-Way Goal (LTG) Pt will sleep full night without pain LTG Duration 04/29/19 1 Impairment lacks HEP Short Term Goal (STG) Pt will be independent with HEP. STG Duration 03/18/19 Assessment Summary Assessment Pt agrees that breathing exercises have helped manage his pain somewhat. His symptoms have been less irritable, with him able to work longer hours with less pain as long as he limits overhead work. Today's session progressed scapular strengthening. Physical Therapy Plan Frequency and Duration Frequency of Treatment 2x/Week Duration of Treatment 8 weeks Plan of Care Start Date 03/04/19 Plan of Care End Date 04/29/19 Therapeutic Interventions Therapeutic Interventions Home Exercise Program,Joint Mobilizations,Manual Therapy, Neuromuscular Re-education, Patient/Caregiver Education, Self-Care/Home Management, Sensory Integration,Soft Tissue Mobilization,Taping, Therapeutic Activities, Therapeutic Exercises Modalities Cold Pack/Ice Massage,Electric Stimulation,Hot Packs Next Visit Focus/Plan Next Note Type Treatment Note Next Visit Plan Progress scapular strengthening and postural awareness with functional activities. Continue to incorporate breathing exercises.
--- NOTE | 2019-03-18 11:50 | PT.OTN ---
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, initial encounter (03/18/19) Physical Therapy Treatment Note PT-OP-A Visit Information Start: 03/04/19 09:51 Freq: Status: Active Protocol: Document 03/18/19 09:42 AW (Rec: 03/18/19 11:49 AW [email or web address]) Out-Patient Physical Therapy Visit Information Visit Information Visit Type Treatment Note Visit Start Time 09:00 Visit Stop Time 09:40 Total Visit Minutes 40 Visit Number 5 Number of PHERESIS SPECIALIST Visits 0 PT-OP-B Current Condition Start: 03/04/19 09:51 Freq: Status: Active Protocol: Document 03/04/19 09:52 AW (Rec: 03/04/19 13:11 AW [email or web address]) Current Condition History of Current Condition Onset Date 2014 Current Complaints right scapular and neck pain History of Current Condition Don is a 58 yo right- handed man who presents to outpatient physical therapy with complaints of R shoulder pain localized to the scapula which began about 4 years ago. He has a remote history of T8 compression fracture. 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 He describes the pain as achey, 8/10 at worst, 1/10 at best. He states the pain is more noticeable at rest and that, for the most part, he can do the things he needs to do - lifting and carrying heavy weight on either shoulder. His pain tends to be worse at night, interrupting his sleep. When his pain is 8/10, it can take 2 hours to feel better. He has tried ibuprofen, hot, and cold, but nothing other than rest has been helpful to alleviate his pain. Overhead work which is required for his job makes it worse. Pt admits that life stress can increase his pain. Prior Treatments and Tests Pt has had no prior therapy for this condition. MRI last month revealed chronic T8 compression fracture with 30% loss of vertebral height, mild T8-T9 central canal narrowing , mild bilateral T8-T9 neural foramical narrowing, no neural impingement Treatment Goals Patient/Caregiver Goals Pt would like to be able to use his right arm to work overhead without having pain at rest. 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 Personal Factors Other Personal Factors That May Effect Depression, anxiety - Therapy/Recovery controlled with medication PT-OP-C Subjective Start: 03/04/19 09:51 Freq: Status: Active Protocol: Document 03/18/19 09:42 AW (Rec: 03/18/19 11:49 AW [email or web address]) OP-PT Subjective Patient Comments Patient Comments Jose reports less pain at night which he possibly attributes to working on less stressful jobs this week with less overhead work. He reports noticing right lateral shoulder tingling associated with looking to the right. PT-OP-E Functional Tests Start: 03/04/19 09:51 Freq: Status: Active Protocol: Document 03/04/19 09:52 AW (Rec: 03/04/19 13:11 AW [email or web address]) Functional Tests Apley's Scratch Test Action 2- Left T4 Action 2- Right T4 Action 3- Left T8 Action 3- Right L1 PT-OP-F Manual Assessment Start: 03/04/19 09:51 Freq: Status: Active Protocol: Document 03/04/19 09:52 AW (Rec: 03/04/19 13:11 AW [email or web address]) Manual Assessments Soft Tissue Assessment Soft Tissue Mobility Assessment R levator scap insertion and right rhomboids tender to palpation. Joint Mobility Assessment Joint Mobility Assessment Glenohumeral inferior and posterior glides symmetrical left and right with no restriction Other Manual Assessments Other Manual Assessments Scapular glide tested in sidelying revealed excessive lateral glide on the right with some restriction medially PT-OP-G Mobility & Gait Start: 03/04/19 09:51 Freq: Status: Active Protocol: Document 03/04/19 09:52 AW (Rec: 03/04/19 13:11 AW [email or web address]) OP Gait Assessment Gait Gait Assistance Required: Independent Assistive Devices Assistive Device None Gait Deviations General Gait Pattern Within Normal Limits PT-OP-H Neuro Start: 03/04/19 09:51 Freq: Status: Active Protocol: Document 03/04/19 09:52 AW (Rec: 03/04/19 13:11 AW [email or web address]) Sensation Evaluation Gross Sensation Gross Sensation WNL Deep Tendon Reflex & Clonus Assessment Deep Tendon Reflex Left brachioradialis Deep Tendon Reflex 2+ Normal Right brachioradialis Deep Tendon Reflex 2+ Normal Left biceps Deep Tendon Reflex 2+ Normal Right biceps Deep Tendon Reflex 2+ Normal Vital Signs Blood Pressure Sitting Blood Pressure (90/60-120/80 mmHg) 140/88 H Blood Pressure Source Manual Cuff,Left Upper Extremity PT-OP-J Posture/Palpation/Skin Start: 03/04/19 09:51 Freq: Status: Active Protocol: Document 03/04/19 09:52 AW (Rec: 03/04/19 13:11 AW [email or web address]) Posture Evaluation Position Sitting Head/C-Spine Posture Extended,Forward Head T-Spine Posture Increased Kyphosis Shoulder Posture (L) Rounded,(R) Rounded,(L) Forward,(R) Forward Scapula Posture (L) Neutral,(R) Protracted,(R) Winged Comments Posture Comments Pt has a notable step off at the cervical/thoracic junction with forward head. R scapula sits ~3.5 from spinous processes, L scapula 3. Palpation Assessment Location right shoulder Palpation Findings Tenderness,Trigger Point Palpation Details Hypertonicity of R rhomboids. Trigger point at R levator scap insertion. PT-OP-K Range of Motion Start: 03/04/19 09:51 Freq: Status: Active Protocol: Document 03/04/19 09:52 AW (Rec: 03/04/19 13:11 AW [email or web address]) Cervical Spine Range of Motion Cervical Spine Active Degrees Testing Position Sitting Lateral Flexion Left 18 Lateral Flexion Right 18 ROM Limitations Soft Tissue Tightness Comments Flexion, extension, rotation all WFL Shoulder Goniometric Range of Motion Shoulder Left Active Testing Position Sitting Flexion 170 Abduction 168 External Rotation at 0 degrees Abduction 70 Internal Rotation Behind Back (text) T8 Right Active Testing Position Sitting Flexion 170 Abduction 165 External Rotation at 0 degrees Abduction 65 Internal Rotation Behind Back (text) L1 Elbow/Forearm Range of Motion Elbow/Forearm ROM Limitations Comments Elbow ROM WNL with no pain PT-OP-L Special Tests Start: 03/04/19 09:51 Freq: Status: Active Protocol: Document 03/04/19 09:52 AW (Rec: 03/04/19 13:11 AW [email or web address]) Special Tests Cervical Spine Special Tests Spurling's Test Test Results negative Comments bilaterally Shoulder Special Tests Empty Can Test Results negative Comments bilaterally Coels Lukas Impingement Test Results negative Comments bilaterally PT-OP-M Strength Start: 03/04/19 09:51 Freq: Status: Active Protocol: Document 03/04/19 09:52 AW (Rec: 03/04/19 13:11 AW [email or web address]) Scapula Strength Scapula Manual Muscle Testing bilateral Elevation (C4) 5 Normal Adduction 4 Good Abduction 4+ Good+ Depression 4- Good- Comments Manual muscle testing of middle and lower traps performed in supine with 4/5 MT and 4-/5 LT. Protraction tested in supine with 4/5 RUE, 4+/5 LUE. Shoulder Strength Shoulder Manual Muscle Testing Right Flexion 5 Normal Abduction (C5) 4+ Good+ External Rotation 5 Normal Internal Rotation 5 Normal Comments No pain with resistive testing Left Flexion 5 Normal Extension 5 Normal External Rotation 5 Normal Internal Rotation 5 Normal Comments Resisted external rotation produced some pain at anterior shoulder. PT-OP-Q Treatments Start: 03/04/19 09:51 Freq: Status: Active Protocol: Document 03/18/19 09:42 AW (Rec: 03/18/19 11:49 AW [email or web address]) Cardio Equipment Upper Body Ergometer (UBE) Duration (Minutes) 6 RPM 75 Height 4 Therapeutic Exercises Supine Exercises rhythmic stabilization Supine Exercise Name rhythmic stabilization Side right Resistance 4# db Reps/Minutes 2 minutes clockwise, 2 minutes counterclock Prone Exercises T-ball Y Prone Exercise Name T-ball Y Side bilateral Equipment Used 65 cm T ball Reps/Minutes 10 sec hold x 5 Comments cues for scap retraction T-ball I Prone Exercise Name T-ball I Side bilateral Equipment Used 65 cm T ball Reps/Minutes 10 second hold x 8 Comments cues for scap retraction Standing Exercises Sahrmann wall slides Standing Exercise Name Sahrmann wall slides Side bilateral Reps/Minutes 2x12 reps ball wall Standing Exercise Name ball wall Side right Equipment Used yellow theraball Reps/Minutes 30 sec each direction x 2 resisted protraction Standing Exercise Name resisted protraction Side right Resistance manual Reps/Minutes 2x10 reps Comments pt hand on wall, cued to protract; PT manually retracting/down rotating Manual Therapy Treatment Soft Tissue Mobilization cervical, R rhomboids, R levator scap Body Location cervical, R rhomboids, R levator scap Mobilization Type Myofascial Release,Sustained Pressure,Trigger Point Release Intensity/Depth Moderate Body Position Hooklying Comments global cervical paraspinals and subocc; R lev scap with no hypertonicity; bilateral upper trap manual stretch Self-Care/Home Management Treatment Education Patient Education Home Exercise Program Other Education snow bryan stretch for pecs levator scap stretch gentle scapular retraction deep cervical flexor endurance seated upper trap stretch TB retraction, TB shoulder extension, supine scapular protraction PT-OP-T Assessment and Plan Start: 03/04/19 09:51 Freq: Status: Active Protocol: Document 03/18/19 09:42 AW (Rec: 03/18/19 11:49 AW [email or web address]) Physical Therapy Assessment Goals 4 Impairment pain Short Term Goal (STG) Pt will be able to work full day with activity modifications and report 5/10 pain or less during rest periods. STG Duration 04/01/19 Cloth Winder Goal (LTG) Pt will be able to work full day with unrestricted overhead activity and report 3/10 pain or less during rest periods Assessment Summary Assessment Pt with improved scapular stabilization today, requiring fewer cues for retraction, depression during exercise. Pain has improved, but pt fears it may return at any time. Today's session spent progressing middle and lower trapezius recruitment/strength with pt tolerating well. Physical Therapy Plan Frequency and Duration Frequency of Treatment 2x/Week Duration of Treatment 8 weeks Plan of Care Start Date 03/04/19 Plan of Care End Date 04/29/19 Therapeutic Interventions Therapeutic Interventions Home Exercise Program,Joint Mobilizations,Manual Therapy, Neuromuscular Re-education, Patient/Caregiver Education, Self-Care/Home Management, Sensory Integration,Soft Tissue Mobilization,Taping, Therapeutic Activities, Therapeutic Exercises Modalities Cold Pack/Ice Massage,Electric Stimulation,Hot Packs Next Visit Focus/Plan Next Note Type Treatment Note Next Visit Plan Progress scapular strengthening and postural awareness with functional activities. Add more standing exercises with overhead reach. Continue to incorporate breathing exercises.
--- NOTE | 2019-04-01 17:10 | PT.OTN ---
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, initial encounter (04/01/19) Physical Therapy Treatment Note PT-OP-A Visit Information Start: 03/04/19 09:51 Freq: Status: Active Protocol: Document 04/01/19 16:48 AW (Rec: 04/01/19 17:10 AW [email or web address]) Out-Patient Physical Therapy Visit Information Visit Information Visit Type Treatment Note Visit Start Time 15:58 Visit Stop Time 16:44 Total Visit Minutes 46 Visit Number 6 Number of PENSION FUND MANAGER Visits 0 PT-OP-B Current Condition Start: 03/04/19 09:51 Freq: Status: Active Protocol: Document 03/04/19 09:52 AW (Rec: 03/04/19 13:11 AW [email or web address]) Current Condition History of Current Condition Onset Date 2014 Current Complaints right scapular and neck pain History of Current Condition Don is a 58 yo right- handed man who presents to outpatient physical therapy with complaints of R shoulder pain localized to the scapula which began about 4 years ago. He has a remote history of T8 compression fracture. 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 He describes the pain as achey, 8/10 at worst, 1/10 at best. He states the pain is more noticeable at rest and that, for the most part, he can do the things he needs to do - lifting and carrying heavy weight on either shoulder. His pain tends to be worse at night, interrupting his sleep. When his pain is 8/10, it can take 2 hours to feel better. He has tried ibuprofen, hot, and cold, but nothing other than rest has been helpful to alleviate his pain. Overhead work which is required for his job makes it worse. Pt admits that life stress can increase his pain. Prior Treatments and Tests Pt has had no prior therapy for this condition. MRI last month revealed chronic T8 compression fracture with 30% loss of vertebral height, mild T8-T9 central canal narrowing , mild bilateral T8-T9 neural foramical narrowing, no neural impingement Treatment Goals Patient/Caregiver Goals Pt would like to be able to use his right arm to work overhead without having pain at rest. 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 Personal Factors Other Personal Factors That May Effect Depression, anxiety - Therapy/Recovery controlled with medication PT-OP-C Subjective Start: 03/04/19 09:51 Freq: Status: Active Protocol: Document 04/01/19 16:48 AW (Rec: 04/01/19 17:10 AW [email or web address]) OP-PT Subjective Patient Comments Patient Comments Jose notes right lateral shoulder tingling associated with looking to the right seems to be happening more frequently. Otherwise, he thinks his symptoms are stable . PT-OP-E Functional Tests Start: 03/04/19 09:51 Freq: Status: Active Protocol: Document 03/04/19 09:52 AW (Rec: 03/04/19 13:11 AW [email or web address]) Functional Tests Apley's Scratch Test Action 2- Left T4 Action 2- Right T4 Action 3- Left T8 Action 3- Right L1 PT-OP-F Manual Assessment Start: 03/04/19 09:51 Freq: Status: Active Protocol: Document 03/04/19 09:52 AW (Rec: 03/04/19 13:11 AW [email or web address]) Manual Assessments Soft Tissue Assessment Soft Tissue Mobility Assessment R levator scap insertion and right rhomboids tender to palpation. Joint Mobility Assessment Joint Mobility Assessment Glenohumeral inferior and posterior glides symmetrical left and right with no restriction Other Manual Assessments Other Manual Assessments Scapular glide tested in sidelying revealed excessive lateral glide on the right with some restriction medially PT-OP-G Mobility & Gait Start: 03/04/19 09:51 Freq: Status: Active Protocol: Document 03/04/19 09:52 AW (Rec: 03/04/19 13:11 AW [email or web address]) OP Gait Assessment Gait Gait Assistance Required: Independent Assistive Devices Assistive Device None Gait Deviations General Gait Pattern Within Normal Limits PT-OP-H Neuro Start: 03/04/19 09:51 Freq: Status: Active Protocol: Document 03/04/19 09:52 AW (Rec: 03/04/19 13:11 AW [email or web address]) Sensation Evaluation Gross Sensation Gross Sensation WNL Deep Tendon Reflex & Clonus Assessment Deep Tendon Reflex Left brachioradialis Deep Tendon Reflex 2+ Normal Right brachioradialis Deep Tendon Reflex 2+ Normal Left biceps Deep Tendon Reflex 2+ Normal Right biceps Deep Tendon Reflex 2+ Normal Vital Signs Blood Pressure Sitting Blood Pressure (90/60-120/80 mmHg) 140/88 H Blood Pressure Source Manual Cuff,Left Upper Extremity PT-OP-J Posture/Palpation/Skin Start: 03/04/19 09:51 Freq: Status: Active Protocol: Document 03/04/19 09:52 AW (Rec: 03/04/19 13:11 AW [email or web address]) Posture Evaluation Position Sitting Head/C-Spine Posture Extended,Forward Head T-Spine Posture Increased Kyphosis Shoulder Posture (L) Rounded,(R) Rounded,(L) Forward,(R) Forward Scapula Posture (L) Neutral,(R) Protracted,(R) Winged Comments Posture Comments Pt has a notable step off at the cervical/thoracic junction with forward head. R scapula sits ~3.5 from spinous processes, L scapula 3. Palpation Assessment Location right shoulder Palpation Findings Tenderness,Trigger Point Palpation Details Hypertonicity of R rhomboids. Trigger point at R levator scap insertion. PT-OP-K Range of Motion Start: 03/04/19 09:51 Freq: Status: Active Protocol: Document 03/04/19 09:52 AW (Rec: 03/04/19 13:11 AW [email or web address]) Cervical Spine Range of Motion Cervical Spine Active Degrees Testing Position Sitting Lateral Flexion Left 18 Lateral Flexion Right 18 ROM Limitations Soft Tissue Tightness Comments Flexion, extension, rotation all WFL Shoulder Goniometric Range of Motion Shoulder Left Active Testing Position Sitting Flexion 170 Abduction 168 External Rotation at 0 degrees Abduction 70 Internal Rotation Behind Back (text) T8 Right Active Testing Position Sitting Flexion 170 Abduction 165 External Rotation at 0 degrees Abduction 65 Internal Rotation Behind Back (text) L1 Elbow/Forearm Range of Motion Elbow/Forearm ROM Limitations Comments Elbow ROM WNL with no pain PT-OP-L Special Tests Start: 03/04/19 09:51 Freq: Status: Active Protocol: Document 03/04/19 09:52 AW (Rec: 03/04/19 13:11 AW [email or web address]) Special Tests Cervical Spine Special Tests Spurling's Test Test Results negative Comments bilaterally Shoulder Special Tests Empty Can Test Results negative Comments bilaterally Coles Lukas Impingement Test Results negative Comments bilaterally PT-OP-M Strength Start: 03/04/19 09:51 Freq: Status: Active Protocol: Document 03/04/19 09:52 AW (Rec: 03/04/19 13:11 AW [email or web address]) Scapula Strength Scapula Manual Muscle Testing bilateral Elevation (C4) 5 Normal Adduction 4 Good Abduction 4+ Good+ Depression 4- Good- Comments Manual muscle testing of middle and lower traps performed in supine with 4/5 MT and 4-/5 LT. Protraction tested in supine with 4/5 RUE, 4+/5 LUE. Shoulder Strength Shoulder Manual Muscle Testing Right Flexion 5 Normal Abduction (C5) 4+ Good+ External Rotation 5 Normal Internal Rotation 5 Normal Comments No pain with resistive testing Left Flexion 5 Normal Extension 5 Normal External Rotation 5 Normal Internal Rotation 5 Normal Comments Resisted external rotation produced some pain at anterior shoulder. PT-OP-Q Treatments Start: 03/04/19 09:51 Freq: Status: Active Protocol: Document 04/01/19 16:48 AW (Rec: 04/01/19 17:10 AW [email or web address]) Cardio Equipment Upper Body Ergometer (UBE) Duration (Minutes) 6 RPM 75 Height 3.5 Therapeutic Exercises Supine Exercises rhythmic stabilization Supine Exercise Name rhythmic stabilization Side right Resistance 5# db Reps/Minutes 2 minutes clockwise, 2 minutes counterclock scapular protraction Supine Exercise Name scapular protraction Side bilateral Resistance 5# db Reps/Minutes 2x15 reps Sitting Exercises scapular depression Sitting Exercise Name scapular depression Side bilateral Resistance 70# Equipment Used lat pull cable Reps/Minutes 2x10 reps Standing Exercises Sahrmann wall slides Standing Exercise Name Sahrmann wall slides Side bilateral Reps/Minutes 2x12 reps Manual Therapy Treatment Soft Tissue Mobilization cervical, R rhomboids, R levator scap Body Location cervical, R rhomboids, R levator scap Mobilization Type Myofascial Release,Sustained Pressure,Trigger Point Release Intensity/Depth Moderate Body Position Hooklying Comments global cervical paraspinals and subocc; R lev scap with increased density; bilateral upper trap manual stretch Joint Mobilizations cervical IMP MAURA Joint mid cervical Direction bi-directional Grade II Body Position Supine Reps/Duration 3 minutes Comments for improved lateral flexion Self-Care/Home Management Treatment Education Patient Education Home Exercise Program Other Education snow bryan stretch for pecs levator scap stretch gentle scapular retraction deep cervical flexor endurance seated upper trap stretch TB retraction, TB shoulder extension, supine scapular protraction PT-OP-T Assessment and Plan Start: 03/04/19 09:51 Freq: Status: Active Protocol: Document 04/01/19 16:48 AW (Rec: 04/01/19 17:10 AW [email or web address]) Physical Therapy Assessment Goals 4 Impairment pain Short Term Goal (STG) Pt will be able to work full day with activity modifications and report 5/10 pain or less during rest periods. 04/01/19: NOT MET - Pt continues to report evening pain as much as 8/10 STG Duration 04/01/19 Long-Term Goal (LTG) Pt will be able to work full day with unrestricted overhead activity and report 3/10 pain or less during rest periods 3 Impairment scapular strength Short Term Goal (STG) Pt will improve middle trap strength from 4/5 to 5/5 for improved mechanics in overhead work STG Duration 04/01/19 2 Impairment interrupted sleep Short Term Goal (STG) Pt will sleep >3/4 full night for improved healing and orthodoxy STG Duration 03/25/19 Long-Term Goal (LTG) Pt will sleep full night without pain LTG Duration 04/29/19 1 Impairment lacks HEP Short Term Goal (STG) Pt will be independent with HEP. 04/01/19: MET STG Duration 03/18/19 Assessment Summary Assessment Pt reporting increased tingling of right lateral shoulder associated with right cervical rotation. Symptoms are evident after ~1 minute of having head turned to the right and they subside nearly immediately when neutral posture is resumed. Pt continues to tolerate ther ex well and has improved lateral flexion after manual therapy, but his overall pain symptoms have not improved. Physical Therapy Plan Frequency and Duration Frequency of Treatment 2x/Week Duration of Treatment 8 weeks Plan of Care Start Date 03/04/19 Plan of Care End Date 04/29/19 Therapeutic Interventions Therapeutic Interventions Home Exercise Program,Joint Mobilizations,Manual Therapy, Neuromuscular Re-education, Patient/Caregiver Education, Self-Care/Home Management, Sensory Integration,Soft Tissue Mobilization,Taping, Therapeutic Activities, Therapeutic Exercises Modalities Cold Pack/Ice Massage,Electric Stimulation,Hot Packs Next Visit Focus/Plan Next Note Type Treatment Note Next Visit Plan Progress scapular strengthening and postural awareness with functional activities. Add more standing exercises with overhead reach. Continue to incorporate breathing exercises/ mindfulness-based stress reduction.
--- NOTE | 2019-04-13 10:17 | PT.OTN ---
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, initial encounter (04/13/19) Physical Therapy Treatment Note PT-OP-A Visit Information Start: 03/04/19 09:51 Freq: Status: Active Protocol: Document 04/13/19 10:03 AW (Rec: 04/13/19 10:17 AW [email or web address]) Out-Patient Physical Therapy Visit Information Visit Information Visit Type Treatment Note Visit Start Time 09:02 Visit Stop Time 09:46 Total Visit Minutes 44 Visit Number 7 Number of WAREHOUSE SHIFT SUPERVISOR Visits 0 PT-OP-B Current Condition Start: 03/04/19 09:51 Freq: Status: Active Protocol: Document 03/04/19 09:52 AW (Rec: 03/04/19 13:11 AW [email or web address]) Current Condition History of Current Condition Onset Date 2014 Current Complaints right scapular and neck pain History of Current Condition Don is a 58 yo right- handed man who presents to outpatient physical therapy with complaints of R shoulder pain localized to the scapula which began about 4 years ago. He has a remote history of T8 compression fracture. 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 He describes the pain as achey, 8/10 at worst, 1/10 at best. He states the pain is more noticeable at rest and that, for the most part, he can do the things he needs to do - lifting and carrying heavy weight on either shoulder. His pain tends to be worse at night, interrupting his sleep. When his pain is 8/10, it can take 2 hours to feel better. He has tried ibuprofen, hot, and cold, but nothing other than rest has been helpful to alleviate his pain. Overhead work which is required for his job makes it worse. Pt admits that life stress can increase his pain. Prior Treatments and Tests Pt has had no prior therapy for this condition. MRI last month revealed chronic T8 compression fracture with 30% loss of vertebral height, mild T8-T9 central canal narrowing , mild bilateral T8-T9 neural foramical narrowing, no neural impingement Treatment Goals Patient/Caregiver Goals Pt would like to be able to use his right arm to work overhead without having pain at rest. 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 Personal Factors Other Personal Factors That May Effect Depression, anxiety - Therapy/Recovery controlled with medication PT-OP-C Subjective Start: 03/04/19 09:51 Freq: Status: Active Protocol: Document 04/13/19 10:03 AW (Rec: 04/13/19 10:17 AW [email or web address]) OP-PT Subjective Patient Comments Patient Comments Jose reports continued 8/10 pain at night after working long days. He typically does not experience pain while working, but does note he had some pain during particularly strenuous work last week. He says he often feels better after doing his neck stretches , but occasionally feels worse . PT-OP-E Functional Tests Start: 03/04/19 09:51 Freq: Status: Active Protocol: Document 03/04/19 09:52 AW (Rec: 03/04/19 13:11 AW [email or web address]) Functional Tests Apley's Scratch Test Action 2- Left T4 Action 2- Right T4 Action 3- Left T8 Action 3- Right L1 PT-OP-F Manual Assessment Start: 03/04/19 09:51 Freq: Status: Active Protocol: Document 03/04/19 09:52 AW (Rec: 03/04/19 13:11 AW [email or web address]) Manual Assessments Soft Tissue Assessment Soft Tissue Mobility Assessment R levator scap insertion and right rhomboids tender to palpation. Joint Mobility Assessment Joint Mobility Assessment Glenohumeral inferior and posterior glides symmetrical left and right with no restriction Other Manual Assessments Other Manual Assessments Scapular glide tested in sidelying revealed excessive lateral glide on the right with some restriction medially PT-OP-G Mobility & Gait Start: 03/04/19 09:51 Freq: Status: Active Protocol: Document 03/04/19 09:52 AW (Rec: 03/04/19 13:11 AW [email or web address]) OP Gait Assessment Gait Gait Assistance Required: Independent Assistive Devices Assistive Device None Gait Deviations General Gait Pattern Within Normal Limits PT-OP-H Neuro Start: 03/04/19 09:51 Freq: Status: Active Protocol: Document 03/04/19 09:52 AW (Rec: 03/04/19 13:11 AW [email or web address]) Sensation Evaluation Gross Sensation Gross Sensation WNL Deep Tendon Reflex & Clonus Assessment Deep Tendon Reflex Left brachioradialis Deep Tendon Reflex 2+ Normal Right brachioradialis Deep Tendon Reflex 2+ Normal Left biceps Deep Tendon Reflex 2+ Normal Right biceps Deep Tendon Reflex 2+ Normal Vital Signs Blood Pressure Sitting Blood Pressure (90/60-120/80 mmHg) 140/88 H Blood Pressure Source Manual Cuff,Left Upper Extremity PT-OP-J Posture/Palpation/Skin Start: 03/04/19 09:51 Freq: Status: Active Protocol: Document 03/04/19 09:52 AW (Rec: 03/04/19 13:11 AW [email or web address]) Posture Evaluation Position Sitting Head/C-Spine Posture Extended,Forward Head T-Spine Posture Increased Kyphosis Shoulder Posture (L) Rounded,(R) Rounded,(L) Forward,(R) Forward Scapula Posture (L) Neutral,(R) Protracted,(R) Winged Comments Posture Comments Pt has a notable step off at the cervical/thoracic junction with forward head. R scapula sits ~3.5 from spinous processes, L scapula 3. Palpation Assessment Location right shoulder Palpation Findings Tenderness,Trigger Point Palpation Details Hypertonicity of R rhomboids. Trigger point at R levator scap insertion. PT-OP-K Range of Motion Start: 03/04/19 09:51 Freq: Status: Active Protocol: Document 03/04/19 09:52 AW (Rec: 03/04/19 13:11 AW [email or web address]) Cervical Spine Range of Motion Cervical Spine Active Degrees Testing Position Sitting Lateral Flexion Left 18 Lateral Flexion Right 18 ROM Limitations Soft Tissue Tightness Comments Flexion, extension, rotation all WFL Shoulder Goniometric Range of Motion Shoulder Left Active Testing Position Sitting Flexion 170 Abduction 168 External Rotation at 0 degrees Abduction 70 Internal Rotation Behind Back (text) T8 Right Active Testing Position Sitting Flexion 170 Abduction 165 External Rotation at 0 degrees Abduction 65 Internal Rotation Behind Back (text) L1 Elbow/Forearm Range of Motion Elbow/Forearm ROM Limitations Comments Elbow ROM WNL with no pain PT-OP-L Special Tests Start: 03/04/19 09:51 Freq: Status: Active Protocol: Document 03/04/19 09:52 AW (Rec: 03/04/19 13:11 AW [email or web address]) Special Tests Cervical Spine Special Tests Spurling's Test Test Results negative Comments bilaterally Shoulder Special Tests Empty Can Test Results negative Comments bilaterally Coles Lukas Impingement Test Results negative Comments bilaterally PT-OP-M Strength Start: 03/04/19 09:51 Freq: Status: Active Protocol: Document 03/04/19 09:52 AW (Rec: 03/04/19 13:11 AW [email or web address]) Scapula Strength Scapula Manual Muscle Testing bilateral Elevation (C4) 5 Normal Adduction 4 Good Abduction 4+ Good+ Depression 4- Good- Comments Manual muscle testing of middle and lower traps performed in supine with 4/5 MT and 4-/5 LT. Protraction tested in supine with 4/5 RUE, 4+/5 LUE. Shoulder Strength Shoulder Manual Muscle Testing Right Flexion 5 Normal Abduction (C5) 4+ Good+ External Rotation 5 Normal Internal Rotation 5 Normal Comments No pain with resistive testing Left Flexion 5 Normal Extension 5 Normal External Rotation 5 Normal Internal Rotation 5 Normal Comments Resisted external rotation produced some pain at anterior shoulder. PT-OP-Q Treatments Start: 03/04/19 09:51 Freq: Status: Active Protocol: Document 04/13/19 10:03 AW (Rec: 04/13/19 10:17 AW [email or web address]) Cardio Equipment Upper Body Ergometer (UBE) Duration (Minutes) 6 RPM 80 Height 3.5 Therapeutic Exercises Supine Exercises deep neck flexor endurance Supine Exercise Name deep neck flexor endurance Side bilateral Reps/Minutes 20 sec hold x 1; 35 sec hold x 2 Comments minimal SCM activity, no visible shaking Sitting Exercises scapular depression Sitting Exercise Name scapular depression Side bilateral Resistance 60# Equipment Used lat pull cable Reps/Minutes 3x12 reps Standing Exercises wall pushups + Standing Exercise Name wall pushups + Side bilateral Reps/Minutes 2x15 reps Comments pt complained of brief pain in fully protracted position; discontinued Sahrmann wall slides Standing Exercise Name Sahrmann wall slides Side bilateral Reps/Minutes 2x12 reps Comments improved control of scapula resisted protraction Standing Exercise Name resisted protraction Side right Resistance manual Reps/Minutes 2x10 reps Comments pt hand on wall, cued to protract; PT manually retracting/down rotating Manual Therapy Treatment Soft Tissue Mobilization cervical, R rhomboids, R levator scap Body Location cervical, R rhomboids, R levator scap Mobilization Type Myofascial Release,Sustained Pressure,Trigger Point Release Intensity/Depth Moderate Body Position Hooklying Comments global cervical paraspinals and subocc; R lev scap with increased density; bilateral upper trap manual stretch Joint Mobilizations cervical IMP MAURA Joint mid cervical Direction bi-directional Grade III Body Position Supine Reps/Duration 3 minutes Comments for improved lateral flexion Self-Care/Home Management Treatment Education Patient Education Home Exercise Program Other Education snow bryan stretch for pecs levator scap stretch gentle scapular retraction deep cervical flexor endurance seated upper trap stretch TB retraction, TB shoulder extension, supine scapular protraction PT-OP-T Assessment and Plan Start: 03/04/19 09:51 Freq: Status: Active Protocol: Document 04/13/19 10:03 AW (Rec: 04/13/19 10:17 AW [email or web address]) Physical Therapy Assessment Goals 4 Impairment pain Short Term Goal (STG) Pt will be able to work full day with activity modifications and report 5/10 pain or less during rest periods. 04/01/19: NOT MET - Pt continues to report evening pain as much as 8/10 STG Duration 04/01/19 Care Home Goal (LTG) Pt will be able to work full day with unrestricted overhead activity and report 3/10 pain or less during rest periods 3 Impairment scapular strength Short Term Goal (STG) Pt will improve middle trap strength from 4/5 to 5/5 for improved mechanics in overhead work STG Duration 04/01/19 2 Impairment interrupted sleep Short Term Goal (STG) Pt will sleep >3/4 full night for improved healing and confucianist 04/13/19: MET - pt reports sleeping 6 uninterrupted hours STG Duration 03/25/19 Cardio Tech Goal (LTG) Pt will sleep full night without pain LTG Duration 04/29/19 1 Impairment lacks HEP Short Term Goal (STG) Pt will be independent with HEP. 04/01/19: MET STG Duration 03/18/19 Assessment Summary Assessment Jose has progressed in scapular strength and postural awareness, but continues to experience 8/10 pain at rest after long work days. X-ray from December 2018 showed no acute abnormality, but the new bony prominence (within the last year) at the scapular spine has not had further imaging. Communicated progress and continued pain to referring physician and suggested further imaging for right scapula. Will continue to see patient once weekly and re- assess at end of plan of care. Physical Therapy Plan Frequency and Duration Frequency of Treatment 1-2x/Week Duration of Treatment 8 weeks Plan of Care Start Date 03/04/19 Plan of Care End Date 04/29/19 Therapeutic Interventions Therapeutic Interventions Home Exercise Program,Joint Mobilizations,Manual Therapy, Neuromuscular Re-education, Patient/Caregiver Education, Self-Care/Home Management, Sensory Integration,Soft Tissue Mobilization,Taping, Therapeutic Activities, Therapeutic Exercises Modalities Cold Pack/Ice Massage,Electric Stimulation,Hot Packs Next Visit Focus/Plan Next Note Type Treatment Note Next Visit Plan Progress scapular strengthening and postural awareness with functional activities. Add more standing exercises with overhead reach. Continue to incorporate breathing exercises/ mindfulness-based stress reduction.
--- NOTE | 2019-04-20 12:28 | PT.OTN ---
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, initial encounter (04/20/19) Physical Therapy Treatment Note PT-OP-A Visit Information Start: 03/04/19 09:51 Freq: Status: Active Protocol: Document 04/20/19 09:44 AW (Rec: 04/20/19 12:28 AW [email or web address]) Out-Patient Physical Therapy Visit Information Visit Information Visit Type Treatment Note Visit Start Time 09:00 Visit Stop Time 09:41 Total Visit Minutes 41 Visit Number 8 Number of STONE POLISHER HAND Visits 0 PT-OP-B Current Condition Start: 03/04/19 09:51 Freq: Status: Active Protocol: Document 03/04/19 09:52 AW (Rec: 03/04/19 13:11 AW [email or web address]) Current Condition History of Current Condition Onset Date 2014 Current Complaints right scapular and neck pain History of Current Condition Don is a 58 yo right- handed man who presents to outpatient physical therapy with complaints of R shoulder pain localized to the scapula which began about 4 years ago. He has a remote history of T8 compression fracture. 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 He describes the pain as achey, 8/10 at worst, 1/10 at best. He states the pain is more noticeable at rest and that, for the most part, he can do the things he needs to do - lifting and carrying heavy weight on either shoulder. His pain tends to be worse at night, interrupting his sleep. When his pain is 8/10, it can take 2 hours to feel better. He has tried ibuprofen, hot, and cold, but nothing other than rest has been helpful to alleviate his pain. Overhead work which is required for his job makes it worse. Pt admits that life stress can increase his pain. Prior Treatments and Tests Pt has had no prior therapy for this condition. MRI last month revealed chronic T8 compression fracture with 30% loss of vertebral height, mild T8-T9 central canal narrowing , mild bilateral T8-T9 neural foramical narrowing, no neural impingement Treatment Goals Patient/Caregiver Goals Pt would like to be able to use his right arm to work overhead without having pain at rest. 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 Personal Factors Other Personal Factors That May Effect Depression, anxiety - Therapy/Recovery controlled with medication PT-OP-C Subjective Start: 03/04/19 09:51 Freq: Status: Active Protocol: Document 04/20/19 09:44 AW (Rec: 04/20/19 12:28 AW [email or web address]) OP-PT Subjective Patient Comments Patient Comments Jose has had relief from pain since Saturday. He notes possible corellation of pain symptoms with anxiety level. He had an MRI of his right shoulder complex on Saturday and is awaiting results . PT-OP-E Functional Tests Start: 03/04/19 09:51 Freq: Status: Active Protocol: Document 03/04/19 09:52 AW (Rec: 03/04/19 13:11 AW [email or web address]) Functional Tests Apley's Scratch Test Action 2- Left T4 Action 2- Right T4 Action 3- Left T8 Action 3- Right L1 PT-OP-F Manual Assessment Start: 03/04/19 09:51 Freq: Status: Active Protocol: Document 03/04/19 09:52 AW (Rec: 03/04/19 13:11 AW [email or web address]) Manual Assessments Soft Tissue Assessment Soft Tissue Mobility Assessment R levator scap insertion and right rhomboids tender to palpation. Joint Mobility Assessment Joint Mobility Assessment Glenohumeral inferior and posterior glides symmetrical left and right with no restriction Other Manual Assessments Other Manual Assessments Scapular glide tested in sidelying revealed excessive lateral glide on the right with some restriction medially PT-OP-G Mobility & Gait Start: 03/04/19 09:51 Freq: Status: Active Protocol: Document 03/04/19 09:52 AW (Rec: 03/04/19 13:11 AW [email or web address]) OP Gait Assessment Gait Gait Assistance Required: Independent Assistive Devices Assistive Device None Gait Deviations General Gait Pattern Within Normal Limits PT-OP-H Neuro Start: 03/04/19 09:51 Freq: Status: Active Protocol: Document 03/04/19 09:52 AW (Rec: 03/04/19 13:11 AW [email or web address]) Sensation Evaluation Gross Sensation Gross Sensation WNL Deep Tendon Reflex & Clonus Assessment Deep Tendon Reflex Left brachioradialis Deep Tendon Reflex 2+ Normal Right brachioradialis Deep Tendon Reflex 2+ Normal Left biceps Deep Tendon Reflex 2+ Normal Right biceps Deep Tendon Reflex 2+ Normal Vital Signs Blood Pressure Sitting Blood Pressure (90/60-120/80 mmHg) 140/88 H Blood Pressure Source Manual Cuff,Left Upper Extremity PT-OP-J Posture/Palpation/Skin Start: 03/04/19 09:51 Freq: Status: Active Protocol: Document 03/04/19 09:52 AW (Rec: 03/04/19 13:11 AW [email or web address]) Posture Evaluation Position Sitting Head/C-Spine Posture Extended,Forward Head T-Spine Posture Increased Kyphosis Shoulder Posture (L) Rounded,(R) Rounded,(L) Forward,(R) Forward Scapula Posture (L) Neutral,(R) Protracted,(R) Winged Comments Posture Comments Pt has a notable step off at the cervical/thoracic junction with forward head. R scapula sits ~3.5 from spinous processes, L scapula 3. Palpation Assessment Location right shoulder Palpation Findings Tenderness,Trigger Point Palpation Details Hypertonicity of R rhomboids. Trigger point at R levator scap insertion. PT-OP-K Range of Motion Start: 03/04/19 09:51 Freq: Status: Active Protocol: Document 03/04/19 09:52 AW (Rec: 03/04/19 13:11 AW [email or web address]) Cervical Spine Range of Motion Cervical Spine Active Degrees Testing Position Sitting Lateral Flexion Left 18 Lateral Flexion Right 18 ROM Limitations Soft Tissue Tightness Comments Flexion, extension, rotation all WFL Shoulder Goniometric Range of Motion Shoulder Left Active Testing Position Sitting Flexion 170 Abduction 168 External Rotation at 0 degrees Abduction 70 Internal Rotation Behind Back (text) T8 Right Active Testing Position Sitting Flexion 170 Abduction 165 External Rotation at 0 degrees Abduction 65 Internal Rotation Behind Back (text) L1 Elbow/Forearm Range of Motion Elbow/Forearm ROM Limitations Comments Elbow ROM WNL with no pain PT-OP-L Special Tests Start: 03/04/19 09:51 Freq: Status: Active Protocol: Document 03/04/19 09:52 AW (Rec: 03/04/19 13:11 AW [email or web address]) Special Tests Cervical Spine Special Tests Spurling's Test Test Results negative Comments bilaterally Shoulder Special Tests Empty Can Test Results negative Comments bilaterally Coles Lukas Impingement Test Results negative Comments bilaterally PT-OP-M Strength Start: 03/04/19 09:51 Freq: Status: Active Protocol: Document 03/04/19 09:52 AW (Rec: 03/04/19 13:11 AW [email or web address]) Scapula Strength Scapula Manual Muscle Testing bilateral Elevation (C4) 5 Normal Adduction 4 Good Abduction 4+ Good+ Depression 4- Good- Comments Manual muscle testing of middle and lower traps performed in supine with 4/5 MT and 4-/5 LT. Protraction tested in supine with 4/5 RUE, 4+/5 LUE. Shoulder Strength Shoulder Manual Muscle Testing Right Flexion 5 Normal Abduction (C5) 4+ Good+ External Rotation 5 Normal Internal Rotation 5 Normal Comments No pain with resistive testing Left Flexion 5 Normal Extension 5 Normal External Rotation 5 Normal Internal Rotation 5 Normal Comments Resisted external rotation produced some pain at anterior shoulder. PT-OP-Q Treatments Start: 03/04/19 09:51 Freq: Status: Active Protocol: Document 04/20/19 09:44 AW (Rec: 04/20/19 12:28 AW [email or web address]) Cardio Equipment Upper Body Ergometer (UBE) Duration (Minutes) 6 RPM 80 Height 3.5 Therapeutic Exercises Supine Exercises chest press plus Supine Exercise Name chest press plus Side bilateral Resistance 10# dumbbells Reps/Minutes 2x15 reps Comments chest press with no rotation plus protraction rhythmic stabilization Supine Exercise Name rhythmic stabilization Side right Resistance 5# db Reps/Minutes 2 minutes clockwise, 2 minutes counterclock deep neck flexor endurance Supine Exercise Name deep neck flexor endurance Side bilateral Reps/Minutes 20 sec hold x 1; 35 sec hold x 2 Comments minimal SCM activity, no visible shaking Sitting Exercises scapular depression Sitting Exercise Name scapular depression Side bilateral Resistance 70# Equipment Used lat pull cable Reps/Minutes 2x12 reps Standing Exercises scapular stabilization - full arm support Standing Exercise Name scapular stabilization - full arm support Side bilateral Reps/Minutes 2x10 reps Comments in mod plantigrade position at 30 table wall slides Standing Exercise Name wall slides Side bilateral Reps/Minutes 2x15 reps Comments with back to wall; start with 90 GH flexion/90 elbow flexion Manual Therapy Treatment Soft Tissue Mobilization cervical, R rhomboids, R levator scap Body Location cervical, R rhomboids, R levator scap Mobilization Type Myofascial Release,Sustained Pressure,Trigger Point Release Intensity/Depth Moderate Body Position Hooklying Comments global cervical paraspinals and subocc; R lev scap less dense; bilateral upper trap and leve scap manual stretch Self-Care/Home Management Treatment Education Patient Education Home Exercise Program Other Education snow bryan stretch for pecs levator scap stretch gentle scapular retraction deep cervical flexor endurance seated upper trap stretch TB retraction, TB shoulder extension, supine scapular protraction wall slides with back to wall PT-OP-T Assessment and Plan Start: 03/04/19 09:51 Freq: Status: Active Protocol: Document 04/20/19 09:44 AW (Rec: 04/20/19 12:28 AW [email or web address]) Physical Therapy Assessment Goals 4 Impairment pain Short Term Goal (STG) Pt will be able to work full day with activity modifications and report 5/10 pain or less during rest periods. 04/01/19: NOT MET - Pt continues to report evening pain as much as 8/10 STG Duration 04/01/19 Senior Care Goal (LTG) Pt will be able to work full day with unrestricted overhead activity and report 3/10 pain or less during rest periods 3 Impairment scapular strength Short Term Goal (STG) Pt will improve middle trap strength from 4/5 to 5/5 for improved mechanics in overhead work STG Duration 04/01/19 2 Impairment interrupted sleep Short Term Goal (STG) Pt will sleep >3/4 full night for improved healing and pentecostal 04/13/19: MET - pt reports sleeping 6 uninterrupted hours STG Duration 03/25/19 Senior Care Goal (LTG) Pt will sleep full night without pain LTG Duration 04/29/19 1 Impairment lacks HEP Short Term Goal (STG) Pt will be independent with HEP. 04/01/19: MET STG Duration 03/18/19 Assessment Summary Assessment Pt shows good effort with all ther ex without any report of pain today. Awaiting MRI results of right shoulder. Will re-assess once report is available. Physical Therapy Plan Frequency and Duration Frequency of Treatment 1-2x/Week Duration of Treatment 8 weeks Plan of Care Start Date 03/04/19 Plan of Care End Date 04/29/19 Therapeutic Interventions Therapeutic Interventions Home Exercise Program,Joint Mobilizations,Manual Therapy, Neuromuscular Re-education, Patient/Caregiver Education, Self-Care/Home Management, Sensory Integration,Soft Tissue Mobilization,Taping, Therapeutic Activities, Therapeutic Exercises Modalities Cold Pack/Ice Massage,Electric Stimulation,Hot Packs Next Visit Focus/Plan Next Note Type Treatment Note Next Visit Plan Progress scapular strengthening and postural awareness with functional activities. Add more standing exercises with overhead reach. Continue to incorporate breathing exercises/ mindfulness-based stress reduction.
--- NOTE | 2019-04-27 10:16 | PT.OTN ---
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, initial encounter (04/27/19) Physical Therapy Treatment Note PT-OP-A Visit Information Start: 03/04/19 09:51 Freq: Status: Active Protocol: Document 04/27/19 09:49 AW (Rec: 04/27/19 10:16 AW [email or web address]) Out-Patient Physical Therapy Visit Information Visit Information Visit Type Discharge Summary Visit Start Time 08:57 Visit Stop Time 09:48 Total Visit Minutes 51 Visit Number 9 Number of DIVE MASTER Visits 0 PT-OP-B Current Condition Start: 03/04/19 09:51 Freq: Status: Active Protocol: Document 03/04/19 09:52 AW (Rec: 03/04/19 13:11 AW [email or web address]) Current Condition History of Current Condition Onset Date 2014 Current Complaints right scapular and neck pain History of Current Condition Don is a 58 yo right- handed man who presents to outpatient physical therapy with complaints of R shoulder pain localized to the scapula which began about 4 years ago. He has a remote history of T8 compression fracture. 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 He describes the pain as achey, 8/10 at worst, 1/10 at best. He states the pain is more noticeable at rest and that, for the most part, he can do the things he needs to do - lifting and carrying heavy weight on either shoulder. His pain tends to be worse at night, interrupting his sleep. When his pain is 8/10, it can take 2 hours to feel better. He has tried ibuprofen, hot, and cold, but nothing other than rest has been helpful to alleviate his pain. Overhead work which is required for his job makes it worse. Pt admits that life stress can increase his pain. Prior Treatments and Tests Pt has had no prior therapy for this condition. MRI last month revealed chronic T8 compression fracture with 30% loss of vertebral height, mild T8-T9 central canal narrowing , mild bilateral T8-T9 neural foramical narrowing, no neural impingement Treatment Goals Patient/Caregiver Goals Pt would like to be able to use his right arm to work overhead without having pain at rest. 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 Personal Factors Other Personal Factors That May Effect Depression, anxiety - Therapy/Recovery controlled with medication PT-OP-C Subjective Start: 03/04/19 09:51 Freq: Status: Active Protocol: Document 04/27/19 09:49 AW (Rec: 04/27/19 10:16 AW [email or web address]) OP-PT Subjective Patient Comments Patient Comments Jose reports little relief in his pain symptoms. PT-OP-E Functional Tests Start: 03/04/19 09:51 Freq: Status: Active Protocol: Document 03/04/19 09:52 AW (Rec: 03/04/19 13:11 AW [email or web address]) Functional Tests Apley's Scratch Test Action 2- Left T4 Action 2- Right T4 Action 3- Left T8 Action 3- Right L1 PT-OP-F Manual Assessment Start: 03/04/19 09:51 Freq: Status: Active Protocol: Document 03/04/19 09:52 AW (Rec: 03/04/19 13:11 AW [email or web address]) Manual Assessments Soft Tissue Assessment Soft Tissue Mobility Assessment R levator scap insertion and right rhomboids tender to palpation. Joint Mobility Assessment Joint Mobility Assessment Glenohumeral inferior and posterior glides symmetrical left and right with no restriction Other Manual Assessments Other Manual Assessments Scapular glide tested in sidelying revealed excessive lateral glide on the right with some restriction medially PT-OP-G Mobility & Gait Start: 03/04/19 09:51 Freq: Status: Active Protocol: Document 03/04/19 09:52 AW (Rec: 03/04/19 13:11 AW [email or web address]) OP Gait Assessment Gait Gait Assistance Required: Independent Assistive Devices Assistive Device None Gait Deviations General Gait Pattern Within Normal Limits PT-OP-H Neuro Start: 03/04/19 09:51 Freq: Status: Active Protocol: Document 03/04/19 09:52 AW (Rec: 03/04/19 13:11 AW [email or web address]) Sensation Evaluation Gross Sensation Gross Sensation WNL Deep Tendon Reflex & Clonus Assessment Deep Tendon Reflex Left brachioradialis Deep Tendon Reflex 2+ Normal Right brachioradialis Deep Tendon Reflex 2+ Normal Left biceps Deep Tendon Reflex 2+ Normal Right biceps Deep Tendon Reflex 2+ Normal Vital Signs Blood Pressure Sitting Blood Pressure (90/60-120/80 mmHg) 140/88 H Blood Pressure Source Manual Cuff,Left Upper Extremity PT-OP-J Posture/Palpation/Skin Start: 03/04/19 09:51 Freq: Status: Active Protocol: Document 03/04/19 09:52 AW (Rec: 03/04/19 13:11 AW [email or web address]) Posture Evaluation Position Sitting Head/C-Spine Posture Extended,Forward Head T-Spine Posture Increased Kyphosis Shoulder Posture (L) Rounded,(R) Rounded,(L) Forward,(R) Forward Scapula Posture (L) Neutral,(R) Protracted,(R) Winged Comments Posture Comments Pt has a notable step off at the cervical/thoracic junction with forward head. R scapula sits ~3.5 from spinous processes, L scapula 3. Palpation Assessment Location right shoulder Palpation Findings Tenderness,Trigger Point Palpation Details Hypertonicity of R rhomboids. Trigger point at R levator scap insertion. PT-OP-K Range of Motion Start: 03/04/19 09:51 Freq: Status: Active Protocol: Document 03/04/19 09:52 AW (Rec: 03/04/19 13:11 AW [email or web address]) Cervical Spine Range of Motion Cervical Spine Active Degrees Testing Position Sitting Lateral Flexion Left 18 Lateral Flexion Right 18 ROM Limitations Soft Tissue Tightness Comments Flexion, extension, rotation all WFL Shoulder Goniometric Range of Motion Shoulder Left Active Testing Position Sitting Flexion 170 Abduction 168 External Rotation at 0 degrees Abduction 70 Internal Rotation Behind Back (text) T8 Right Active Testing Position Sitting Flexion 170 Abduction 165 External Rotation at 0 degrees Abduction 65 Internal Rotation Behind Back (text) L1 Elbow/Forearm Range of Motion Elbow/Forearm ROM Limitations Comments Elbow ROM WNL with no pain PT-OP-L Special Tests Start: 03/04/19 09:51 Freq: Status: Active Protocol: Document 03/04/19 09:52 AW (Rec: 03/04/19 13:11 AW [email or web address]) Special Tests Cervical Spine Special Tests Spurling's Test Test Results negative Comments bilaterally Shoulder Special Tests Empty Can Test Results negative Comments bilaterally Coles Lukas Impingement Test Results negative Comments bilaterally PT-OP-M Strength Start: 03/04/19 09:51 Freq: Status: Active Protocol: Document 03/04/19 09:52 AW (Rec: 03/04/19 13:11 AW [email or web address]) Scapula Strength Scapula Manual Muscle Testing bilateral Elevation (C4) 5 Normal Adduction 4 Good Abduction 4+ Good+ Depression 4- Good- Comments Manual muscle testing of middle and lower traps performed in supine with 4/5 MT and 4-/5 LT. Protraction tested in supine with 4/5 RUE, 4+/5 LUE. Shoulder Strength Shoulder Manual Muscle Testing Right Flexion 5 Normal Abduction (C5) 4+ Good+ External Rotation 5 Normal Internal Rotation 5 Normal Comments No pain with resistive testing Left Flexion 5 Normal Extension 5 Normal External Rotation 5 Normal Internal Rotation 5 Normal Comments Resisted external rotation produced some pain at anterior shoulder. PT-OP-Q Treatments Start: 03/04/19 09:51 Freq: Status: Active Protocol: Document 04/27/19 09:49 AW (Rec: 04/27/19 10:16 AW [email or web address]) Cardio Equipment Upper Body Ergometer (UBE) Duration (Minutes) 5 RPM 80 Height 3.5 Therapeutic Exercises Prone Exercises T-ball Y Prone Exercise Name T-ball Y Side bilateral Equipment Used 65 cm T ball Reps/Minutes 10 sec hold x 5 Comments cues for scap retraction T-ball I Prone Exercise Name T-ball T Side bilateral Equipment Used 65 cm T ball Reps/Minutes 10 second hold x 8 Comments cues for scap retraction Sitting Exercises scapular depression Sitting Exercise Name scapular depression Side bilateral Resistance 70# Equipment Used lat pull cable Reps/Minutes 2x12 reps Comments improved shoulder posture throughout ROM Standing Exercises reactive isometrics Standing Exercise Name reactive isometrics Side right Resistance level 3 TB Reps/Minutes 1x10 ER; 1x10 IR scapular stabilization - full arm support Standing Exercise Name scapular stabilization - full arm support Side bilateral Reps/Minutes 1x10 reps Comments in mod plantigrade position at 30 table wall slides Standing Exercise Name wall slides Side bilateral Reps/Minutes 2x15 reps Comments with back to wall; start with 90 GH flexion/90 elbow flexion shoulder extension Standing Exercise Name shoulder extension Side bilateral Resistance level 3 TB Reps/Minutes 2x15 reps Comments cues for scap retraction shoulder row Standing Exercise Name shoulder row Side bilateral Resistance level 3 TB Reps/Minutes 2x15 reps Comments cues for scapular retraction Manual Therapy Treatment Soft Tissue Mobilization cervical, R rhomboids, R levator scap Body Location cervical, R rhomboids, R levator scap Mobilization Type Myofascial Release,Sustained Pressure,Trigger Point Release Intensity/Depth Moderate Body Position Hooklying Comments global cervical paraspinals and subocc; bilateral upper trap and lev scap manual stretch Self-Care/Home Management Treatment Education Patient Education Home Exercise Program Other Education Access Code: [email or web address] URL: [email or web address] Date: 04/27/2019 Prepared by: dAriana Randall Exercises Seated Upper Trapezius Stretch - 4 reps - 1 sets - 30 sec hold - 2x daily - 7x weekly Seated Levator Scapulae Stretch - 4 reps - 1 sets - 30 sec hold - 2x daily - 7x weekly Supine Static Chest Stretch on Foam Roll - 4 reps - 1 sets - 30 sec hold - 2x daily - 7x weekly Supine Scapular Protraction in Flexion with Dumbbells - 10 reps - 3 sets - 1x daily - 7x weekly Standing Shoulder W at Wall - 10 reps - 2 sets - 1x daily - 7x weekly Standing Row with Resistance - 10 reps - 2 sets - 1x daily - 7x weekly Standing Elbow Extension with Anchored Resistance - 10 reps - 2 sets - 1x daily - 7x weekly Shoulder External Rotation Reactive Isometrics - 10 reps - 2 sets - 1x daily - 7x weekly Shoulder Internal Rotation Reactive Isometrics - 10 reps - 2 sets - 1x daily - 7x weekly Prone Middle Trapezius with Legs Straight on [place] Ball - 10 reps - 1 sets - 10 sec hold - 1x daily - 7x weekly Prone Single Arm Middle Trapezius Strengthening on [place] Ball - 10 reps - 1 sets - 10 sec hold - 1x daily - 7x weekly PT-OP-T Assessment and Plan Start: 03/04/19 09:51 Freq: Status: Active Protocol: Document 04/27/19 09:49 AW (Rec: 04/27/19 10:16 AW [email or web address]) Physical Therapy Assessment Goals 4 Impairment pain Short Term Goal (STG) Pt will be able to work full day with activity modifications and report 5/10 pain or less during rest periods. 04/01/19: NOT MET - Pt continues to report evening pain as much as 8/10 STG Duration 04/01/19 Fdc Goal (LTG) Pt will be able to work full day with unrestricted overhead activity and report 3/10 pain or less during rest periods 04/27/19: NOT MET - Pt continues to report 7/10 pain after work day 3 Impairment scapular strength Short Term Goal (STG) Pt will improve middle trap strength from 4/5 to 5/5 for improved mechanics in overhead work 04/27/19: PARTIALLY MET - 4+/5 STG Duration 04/01/19 2 Impairment interrupted sleep Short Term Goal (STG) Pt will sleep >3/4 full night for improved healing and yarsanism 04/13/19: MET - pt reports sleeping 6 uninterrupted hours STG Duration 03/25/19 Fdc Goal (LTG) Pt will sleep full night without pain 04/27/19: MET - Pt reports sleeping full night, waking only to use the bathroom and without pain LTG Duration 04/29/19 1 Impairment lacks HEP Short Term Goal (STG) Pt will be independent with HEP. 04/01/19: MET STG Duration 03/18/19 Assessment Summary Assessment Pt has completed 9 visits of outpatient PT, meeting some goals of this plan of care, but continuing to report 7/10 pain after work days. His work involves heavy overhead activity; he has been unable to modify his activity significantly in order to avoid overhead work. Shoulder MRI on 04/17/19 reveals: IMPRESSION: 1. Tendinosis and low-grade articular bursal surface partial-thickness tear involving distal supraspinatus extending to musculotendinous junction. The supraspinatus and subscapularis tendinosis. No full-thickness rotator cuff tendon rupture. 2. Moderate acromioclavicular joint osteoarthritis and glenohumeral joint osteoarthritis. 3. Suggestion of focal superior anterior labral tear at 12 to 1:00 position and anterior-inferior labral tear 4 to 6:00 position. Pt's clinical presentation and subjective history is consistent with partial thickness RC tear. No subjective or objective findings suggest concern for labral involvement. Pt is now independent with his HEP and feels comfortable continuing on his own. Advised pt to attempt to further modify his work schedule and assignments to avoid repetitive overhead activity as much as possible. Physical Therapy Plan Frequency and Duration Frequency of Treatment 1-2x/Week Duration of Treatment 8 weeks Plan of Care Start Date 03/04/19 Plan of Care End Date 04/29/19 Therapeutic Interventions Therapeutic Interventions Home Exercise Program,Joint Mobilizations,Manual Therapy, Neuromuscular Re-education, Patient/Caregiver Education, Self-Care/Home Management, Sensory Integration,Soft Tissue Mobilization,Taping, Therapeutic Activities, Therapeutic Exercises Modalities Cold Pack/Ice Massage,Electric Stimulation,Hot Packs Discharge Physical Therapy Discharge Reasons Plateau in Progress Discharge Comments See assessment.
== END 2019-04-29 15:33 | disposition home or self-care (01) ==
LOC: PHYS 09:00
PROVIDERS: PCP Student in an Organized Health Care Education/Training Program; Visit Provider Student in an Organized Health Care Education/Training Program
DX: S24.8XXA Injury of other specified nerves of thorax, initial encounter (principal)
CPT/HCPCS: 97110; 97140; 97161; 97530

== ENCOUNTER → 2019-08-08 08:39 | Outpatient (CLI) | payer OTHER, SELFPAY ==
--- NOTE | 2019-08-08 | DI.MRI.S_ITS ---
PROCEDURE: MR CERVICAL SPINE WO CON INDICATIONS: Cervicalgia TECHNIQUE: Noncontrast sagittal T1 spin echo and T2 fast spin echo, sagittal STIR, foraminal oblique sagittal T2 fast spin echo, and axial gradient echo or T2 fast spin echo through the cervical spine. COMPARISON: [facility] [place], CR, XR CERVICAL SPINE 2 OR 3 VIEWS, 07/21/2019, 8:06. FINDINGS: Image quality: Excellent. Alignment and Curvature: There is mild, grade 1 retrolisthesis of C3 on C4, C4 on C5, and C5 on C6. Mild grade 1 anterolisthesis of C7 on T1 is present. Bone Marrow: Marrow demonstrates normal overall signal. There is mild reactive signal within the endplates adjacent to the C2-C3, C3-C4, C4-C5, C5-C6, and C6-C7 intervertebral discs. Spinal Cord: Visualized spinal cord has normal size and signal. No cerebellar tonsillar herniation. Paraspinous Soft Tissues: No paravertebral masses. Prevertebral soft tissues are normal in thickness. C2-C3: Moderate disc height loss and desiccation. Mild diffuse disc bulge. Mild facet and uncovertebral hypertrophy bilaterally. Mild canal stenosis. Mild left greater than right foraminal stenosis. C3-C4: Moderate disc height loss and desiccation. Mild diffuse disc bulge with superimposed broad-based left posterolateral protrusion. Mild facet and uncovertebral hypertrophy bilaterally. Congenital canal stenosis. There is severe canal stenosis. Mild cord flattening. Severe left and moderate right foraminal stenosis. Left C4 nerve root compression. C4-C5: Congenital canal stenosis. Moderate disc height loss and desiccation. Moderate diffuse disc bulge. Moderate facet and uncovertebral hypertrophy bilaterally. Severe canal stenosis. Moderate cord flattening. Severe bilateral foraminal stenosis. Bilateral C5 nerve root compression. C5-C6: Congenital canal stenosis. Moderate disc height loss and desiccation. Moderate diffuse disc bulge/osteophyte. Mild facet and uncovertebral hypertrophy bilaterally. Severe canal stenosis. Mild cord flattening. Severe bilateral foraminal stenosis bilateral C6 nerve root compression. C6-C7: Congenital canal stenosis. Moderate disc height loss and desiccation. Mild diffuse disc bulge. Mild facet and uncovertebral hypertrophy bilaterally. Moderate canal stenosis. Moderate bilateral foraminal stenosis. C7-T1: Moderate disc height loss. Mild disc desiccation. Mild facet and uncovertebral hypertrophy bilaterally. Minimal canal stenosis. No foraminal stenosis. IMPRESSION: 1. Diffuse congenital canal stenosis with superimposed disc and facet disease, as well as uncovertebral hypertrophy. 2. Multilevel canal stenoses, worst at C3-C4, C4-C5, and C5-C6, where there is cord flattening present. 3. Multiple level foraminal stenoses, worst at C3-C4, C4-C5, and C5-C6, where there is associated intraforaminal neural compression as described above. Recommend correlation with clinical symptoms to ascertain relevance of these findings. Dictated by: Rj Daily M.D. on 08/10/2019 at 8:42 Approved by: Rj Daily M.D. on 08/10/2019 at 8:48
== END ==
PROVIDERS: PCP Student in an Organized Health Care Education/Training Program; Referring Provider Orthopaedic Surgery; Visit Provider Orthopaedic Surgery
DX: M48.02 Spinal stenosis, cervical region (principal); M50.21 Other cervical disc displacement, high cervical region
CPT/HCPCS: 72141

== ENCOUNTER → 2020-02-03 07:46 | Outpatient (CLI) | payer OTHER, SELFPAY ==
[2020-02-03 09:06] LABS: Prostate Specific Antigen 0.399 ng/mL (0.10-4.00)
== END ==
PROVIDERS: PCP Student in an Organized Health Care Education/Training Program; Referring Provider Specialist; Visit Provider Specialist
DX: N13.8 Other obstructive and reflux uropathy (principal); N40.1 Benign prostatic hyperplasia with lower urinary tract symptoms
CPT/HCPCS: 36415; 84153

== ENCOUNTER → 2020-05-09 11:40 | Outpatient (CLI) | payer OTHER, SELFPAY ==
--- NOTE | 2020-05-09 11:41 | DI.RAD.S_ITS ---
PROCEDURE: XR SHOULDER LT MIN 2V INDICATIONS: shoulder impingement TECHNIQUE: 3 views of the shoulder were acquired. COMPARISON: [facility], CR, XR SCAPULA RT, 01/21/2019, 13:48. [facility], [place], XR CERVICAL SPINE 2 OR 3 VIEWS, 07/21/2019, 8:06. FINDINGS: Bones: No acute fractures or dislocations. Mild to moderate degenerative change of the shoulder including degenerative hypertrophy of the acromioclavicular joint and small spur at the inferior glenoid. Undulation of the left lateral 6th rib which may be due to prior fracture. No suspicious bony lesions. Visualized ribs appear intact. Soft tissues: No suspicious soft tissue calcifications. No calcifications to suggest calcific tendinitis. IMPRESSION: No acute fracture. [id number] degenerative change of the shoulder. Suspect prior nondisplaced left lateral 6th rib fracture. Dictated by: Satya Espinosa M.D. on 05/09/2020 at 11:57 Approved by: Satya Espinosa M.D. on 05/09/2020 at 12:00
== END ==
PROVIDERS: PCP Student in an Organized Health Care Education/Training Program; Referring Provider Physical Medicine & Rehabilitation; Visit Provider Physical Medicine & Rehabilitation
DX: S24.8XXA Injury of other specified nerves of thorax, initial encounter (principal); M75.42 Impingement syndrome of left shoulder; X58.XXXA Exposure to other specified factors, initial encounter
CPT/HCPCS: 73030

== ENCOUNTER → 2020-06-06 14:40 | Outpatient (CLI) | payer OTHER, SELFPAY ==
[2020-06-06 15:57] LABS: Alanine Aminotransferase 29 IU/L (<50); Albumin 4.6 g/dL (3.5-5.0); Albumin Globulin Ratio 1.6 (1.0-2.8); Alkaline Phosphatase 63 U/L (38-126); Aspartate Aminotransferase 26 IU/L (17-59); Bilirubin Total 0.7 mg/dL (0.2-1.3); Blood Urea Nitrogen 22 mg/dL (9-20); Calcium 9.7 mg/dL (8.4-10.2); Carbon Dioxide 24 mmol/L (22-32); Chloride 106 mmol/L (98-107); Estimated Glomerular Filt Rate > 60.0 mL/min (>60); Globulin 2.9 g/dL (1.7-4.1); Glucose 101 mg/dL (70-100); HEMOLYSIS < 15 (0-50); Lipase 217 U/L (23-300); Potassium 4.1 mmol/L (3.4-5.1); Sodium 140 mmol/L (137-145); Total Protein 7.5 g/dL (6.3-8.2)
== END ==
PROVIDERS: PCP Family Medicine; Referring Provider Family Medicine; Visit Provider Family Medicine
DX: R10.12 Left upper quadrant pain (principal)
CPT/HCPCS: 36415; 80053; 83013; 83690

== ENCOUNTER 2020-07-08 09:00 | Outpatient (RCR) | payer OTHER, SELFPAY ==
--- NOTE | 2020-07-06 16:32 | PT.OIE ---
Current Diagnoses Benign paroxysmal vertigo, unspecified ear (07/06/20) Dizziness and giddiness (07/06/20) Past Medical History (Last Updated 06/29/20 @ 10:53 by Nelson Penny DO) Anxiety BPH w urinary obs/LUTS BPH w urinary obs/LUTS Cervical spondylosis with radiculopathy Depression Elevated PSA Erectile dysfunction Erectile dysfunction GERD (gastroesophageal reflux disease) Heartburn Impingement syndrome of left shoulder Shoulder pain Vertigo Past Surgical History (Last Reviewed 06/29/20 @ 10:50 by Nelson Penny DO) Anesthesia History of hernia repair (~2011) Visit Care Team Role Provider Type Max Calvillo MD Attending Provider Physician Primary Care Provider Referring Provider Specialty: [facility] Address: [address] [place] [address], [facility] Email: [email or web address] Physical Therapy Initial Evaluation PT-OP-A Visit Information Start: 07/06/20 14:27 Freq: Status: Active Protocol: Document 07/06/20 13:45 DCW (Rec: 07/06/20 16:16 DCW [id number]) Out-Patient Physical Therapy Visit Information Visit Information Visit Type Initial Evaluation Visit Start Time 13:45 Visit Stop Time 14:20 Total Visit Minutes 35 Visit Number 1 Number of WINDSCREEN FITTER Visits 0 Evaluation Information Evaluation Date 07/06/20 PT-OP-B Current Condition Start: 07/06/20 14:27 Freq: Status: Active Protocol: Document 07/06/20 13:45 DCW (Rec: 07/06/20 16:16 DCW [id number]) Current Condition History of Current Condition Onset Date s/p 3 weeks Current Complaints Position-dependent dizziness History of Current Condition Pt is a 59 year old male complaining of a three week history of motion-induced vertigo. Pt reports episodes last ~5 seconds. 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 Since then, symptoms are provoked by rolling in bed, specifically to his right, or tilting his head up or down. Pt denies recent hearing changes, tinnitus, diplopia, dysarthria, discoordination, or decreased mentation/ consciousness. Pt reports symptoms are not waxing or waning in nature. Pt denies hx of HTN, hyperlipidemia, diabetes, arrhythmia, head trauma, seizure, migraines, back/neck problems, CVA, or excessive smoking or drinking. Pt admits that his PCP recommended that he attend vestibular PT, but pt preferred to attempt to fix it on his own with information found on the internet. Pt performed what sounds like BDs with no success, and then decided to schedule PT. 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 Patient Questionnaires Dizziness Handicap Inventory DHI Score 32% DHI Functional Impairment 20 to 39% Impaired (Score 20- 39) PT-OP-O Vestibular Start: 07/06/20 14:27 Freq: Status: Active Protocol: Document 07/06/20 13:45 DCW (Rec: 07/06/20 16:16 DCW [id number]) Vestibular Assessment Screening Tests Vestibular Artery Screen Negative Auditory Tests Fernandes Test Within normal limits Rinne Test Negative Air Conduction Results Equal Visual Testing Smooth Pursuits Horizontal WNL Smooth Pursuits Vertical WNL Saccades Horizontal WNL Saccades Vertical WNL Heave Test Negative Thrust Head Negative Positional Testing Tomasz-Hallpike Negative Left,Negative Right Rolling Test Negative Left,Negative Right PT-OP-Q Treatments Start: 07/06/20 14:27 Freq: Status: Active Protocol: Document 07/06/20 13:45 DCW (Rec: 07/06/20 16:17 DCW [id number]) Canalithic Repositioning BPPV Treatment Teddy Affected Canal(s) R Posterior? Reps x1 PT-OP-T Assessment and Plan Start: 07/06/20 14:27 Freq: Status: Active Protocol: Document 07/06/20 13:45 DCW (Rec: 07/06/20 16:32 DCW [id number]) Physical Therapy Assessment Rehab Potential Rehabilitation Potential Excellent Evaluation Complexity Number of Personal Factors/Comorbidities 0 Number of Body Systems Impaired 1-2 Clinical Presentation at Evaluation Stable Impairments Impairments Balance,Vestibular Goals 2 Impairment Pt scores a 32% disability on the Dizziness Handicap Inventory Short Term Goal (STG) Pt to score <10% disability on the DHI STG Duration 08/06/20 1 Impairment Pt reports position-dependent vertigo during bed mobility Short Term Goal (STG) Pt to perform bed mobility with no instances of vertigo for one week. STG Duration 08/06/20 Assessment Summary Assessment At the time of assessment today, pt's vestibular exam with entirely negative. Due to pt's subjective complaints being incredibly strongly suggestive of BPPV, and with his great ability to relay his history, appears to be affecting his right side. Due to the fact that 1.) BPPV can be waxing and waning, and 2.) Pt has been performing BDEs, which can lead to a fatigue of the reflexive eye movement ( nystagmus) and a decrease in subjective symptoms, pt may still have BPPV while testing negative. Since the posterior canal is by far the most likely, a right-sided Teddy maneuver was performed. Pt was educated on BPPV, expectations for treatment, and possible recurrence (BPPV has a ~50% recurrence rate in the five years following treatment). Pt to return within ~1 week for a follow-up appointment, and intermittently afterward as indicated for treatment of BPPV. Physical Therapy Plan Frequency and Duration Frequency of Treatment 2x/Week Duration of Treatment 6 weeks Plan of Care Start Date 07/06/20 Plan of Care End Date 08/17/20 Therapeutic Interventions Therapeutic Interventions Balance Training,Canalithic Repositioning,Coordination Training,Vestibular Rehabilitation Next Visit Focus/Plan Next Note Type Treatment Note Next Visit Plan Positional testing, CRM as indicated
--- NOTE | 2020-07-06 16:32 | PT.OPPOC ---
Physical, Occupational & Speech Therapy At [facility] Current Diagnoses Benign paroxysmal vertigo, unspecified ear (07/06/20) Dizziness and giddiness (07/06/20) Visit Care Team Role Provider Type Max Calvillo MD Attending Provider Physician Primary Care Provider Referring Provider Specialty: [facility] Practice Address: [address] [place] [address], [facility] Email: [email or web address] Plan Of Care PT-OP-T Assessment and Plan Start: 07/06/20 14:27 Freq: Status: Active Protocol: Document 07/06/20 13:45 DCW (Rec: 07/06/20 16:32 DCW [id number]) Physical Therapy Assessment Rehab Potential Rehabilitation Potential Excellent Evaluation Complexity Number of Personal Factors/Comorbidities 0 Number of Body Systems Impaired 1-2 Clinical Presentation at Evaluation Stable Impairments Impairments Balance,Vestibular Goals 2 Impairment Pt scores a 32% disability on the Dizziness Handicap Inventory Short Term Goal (STG) Pt to score <10% disability on the DHI STG Duration 08/06/20 1 Impairment Pt reports position-dependent vertigo during bed mobility Short Term Goal (STG) Pt to perform bed mobility with no instances of vertigo for one week. STG Duration 08/06/20 Assessment Summary Assessment At the time of assessment today, pt's vestibular exam with entirely negative. Due to pt's subjective complaints being incredibly strongly suggestive of BPPV, and with his great ability to relay his history, appears to be affecting his right side. Due to the fact that 1.) BPPV can be waxing and waning, and 2.) Pt has been performing BDEs, which can lead to a fatigue of the reflexive eye movement ( nystagmus) and a decrease in subjective symptoms, pt may still have BPPV while testing negative. Since the posterior canal is by far the most likely, a right-sided Etddy maneuver was performed. Pt was educated on BPPV, expectations for treatment, and possible recurrence (BPPV has a ~50% recurrence rate in the five years following treatment). Pt to return within ~1 week for a follow-up appointment, and intermittently afterward as indicated for treatment of BPPV. Physical Therapy Plan Frequency and Duration Frequency of Treatment 2x/Week Duration of Treatment 6 weeks Plan of Care Start Date 07/06/20 Plan of Care End Date 08/17/20 Therapeutic Interventions Therapeutic Interventions Balance Training,Canalithic Repositioning,Coordination Training,Vestibular Rehabilitation Next Visit Focus/Plan Next Note Type Treatment Note Next Visit Plan Positional testing, CRM as indicated Plan of Care Dates Plan of Care Start Date 07/06/20 Plan of Care End Date 08/17/20 Electronically Signed by: Don Pineda, PT 07/06/20 [id number] Please Sign and Return: I have reviewed this Plan of Care and certify that the skilled therapy services above are required to meet the patient?s needs. Physician Signature Date Printed Name and Credentials Clinical Instructor Signature Printed Name and Credentials
--- NOTE | 2020-07-08 09:14 | PT.OTN ---
Current Diagnoses Benign paroxysmal vertigo, unspecified ear (07/08/20) Dizziness and giddiness (07/08/20) Physical Therapy Treatment Note PT-OP-A Visit Information Start: 07/06/20 14:27 Freq: Status: Active Protocol: Document 07/08/20 09:00 DCW (Rec: 07/08/20 09:14 DCW [id number]) Out-Patient Physical Therapy Visit Information Visit Information Visit Type Discharge Summary Visit Start Time 09:00 Visit Stop Time 09:10 Total Visit Minutes 10 Visit Number 2 Number of DIGITAL DEVELOPER Visits 0 Evaluation Information Evaluation Date 07/06/20 PT-OP-B Current Condition Start: 07/06/20 14:27 Freq: Status: Active Protocol: Document 07/06/20 13:45 DCW (Rec: 07/06/20 16:16 DCW [id number]) Current Condition History of Current Condition Onset Date s/p 3 weeks Current Complaints Position-dependent dizziness History of Current Condition Pt is a 59 year old male complaining of a three week history of motion-induced vertigo. Pt reports episodes last ~5 seconds. 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 Since then, symptoms are provoked by rolling in bed, specifically to his right, or tilting his head up or down. Pt denies recent hearing changes, tinnitus, diplopia, dysarthria, discoordination, or decreased mentation/ consciousness. Pt reports symptoms are not waxing or waning in nature. Pt denies hx of HTN, hyperlipidemia, diabetes, arrhythmia, head trauma, seizure, migraines, back/neck problems, CVA, or excessive smoking or drinking. Pt admits that his PCP recommended that he attend vestibular PT, but pt preferred to attempt to fix it on his own with information found on the internet. Pt performed what sounds like BDs with no success, and then decided to schedule PT. Treatment Goals Patient/Caregiver Goals Eliminate vertigo PT-OP-C Subjective Start: 07/06/20 14:27 Freq: Status: Active Protocol: Document 07/08/20 09:00 DCW (Rec: 07/08/20 09:14 DCW [id number]) OP-PT Subjective Patient Comments Patient Comments Pt notes that he has been completely back to normal. PT-OP-O Vestibular Start: 07/06/20 14:27 Freq: Status: Active Protocol: Document 07/08/20 09:00 DCW (Rec: 07/08/20 09:14 DCW [id number]) Vestibular Assessment Positional Testing Foley-Hallpike Negative Left,Negative Right Rolling Test Negative Left,Negative Right PT-OP-Q Treatments Start: 07/06/20 14:27 Freq: Status: Active Protocol: Document 07/08/20 09:00 DCW (Rec: 07/08/20 09:14 DCW [id number]) Manual Therapy Treatment Other Other Manual Treatments Positional testing PT-OP-T Assessment and Plan Start: 07/06/20 14:27 Freq: Status: Active Protocol: Document 07/08/20 09:00 DCW (Rec: 07/08/20 09:14 DCW [id number]) Physical Therapy Assessment Impairments Impairments Balance,Vestibular Goals 2 Impairment Pt scores a 32% disability on the Dizziness Handicap Inventory Short Term Goal (STG) Pt to score <10% disability on the DHI STG Duration 08/06/20 1 Impairment Pt reports position-dependent vertigo during bed mobility Short Term Goal (STG) Pt to perform bed mobility with no instances of vertigo for one week. STG Duration 08/06/20 Assessment Summary Assessment Pt vestibular testing negative today, pt has had no complaints of vertigo since his evaluation. Pt will be discharged from skilled therapy at this time. Physical Therapy Plan Frequency and Duration Frequency of Treatment 2x/Week Duration of Treatment 6 weeks Plan of Care Start Date 07/06/20 Plan of Care End Date 08/17/20 Therapeutic Interventions Therapeutic Interventions Balance Training,Canalithic Repositioning,Coordination Training,Vestibular Rehabilitation Discharge Physical Therapy Discharge Comments No further vestibular rehabilitation indicated at this time. Next Visit Focus/Plan Next Note Type Discharge Summary
== END 2020-07-08 13:48 ==
LOC: PHYS 09:00
PROVIDERS: PCP Family Medicine; Referring Provider Family Medicine; Visit Provider Family Medicine
DX: H81.10 Benign paroxysmal vertigo, unspecified ear (principal)
CPT/HCPCS: 95992; 97140; 97161

== ENCOUNTER → 2020-10-07 08:38 | Outpatient (CLI) | payer OTHER, SELFPAY ==
[2020-10-07] MEDS: COVID-19 VACC, Ad26(JANSSEN)/PF 0.5 ML IM (08:44)
== END ==
PROVIDERS: PCP Family Medicine; Visit Provider Internal Medicine
DX: Z23 Encounter for immunization (principal)
CPT/HCPCS: 0031A; 91303

== ENCOUNTER → 2021-07-04 10:15 | Outpatient (CLI) | payer OTHER, SELFPAY ==
[2021-07-04 11:04] LABS: Add Manual Diff / Slide Review NO; Basophils Absolute Auto 100 /uL (0-100); Basophils Percent Auto 0.8 % (0-2); Eosinophils Absolute Auto 200 /uL (0-450); Eosinophils Percent Auto 2.4 % (2-4); Hematocrit 45.2 % (41-53); Hemoglobin 15.8 g/dL (13.5-17.5); Lymphocytes Absolute Auto 1800 /uL (1100-4500); Lymphocytes Percent Auto 28.3 % (25-40); Mean Corpuscular HGB Conc 34.8 % (30-36); Mean Corpuscular Hemoglobin 28.9 PG (26-34); Mean Corpuscular Volume 82.9 fL (80-100); Monocytes Absolute Auto 500 /uL (0-900); Monocytes Percent Auto 7.1 % (3-14); Neutrophils Absolute Auto 4000 /uL (1500-7000); Neutrophils Percent Auto 61.4 % (50-75); Platelet Count 162 X10^3/uL (150-400); Red Blood Cell Count 5.46 X10^6/uL (4.5-5.9); Red Cell Distribution Width 13.3 % (11.6-14.8); White Blood Cell Count 6.5 X10^3/uL (4.5-11.0)
[2021-07-04 11:23] LABS: Alanine Aminotransferase 29 IU/L (<50); Albumin 4.6 g/dL (3.5-5.0); Albumin Globulin Ratio 1.6 (1.0-2.8); Alkaline Phosphatase 56 U/L (38-126); Aspartate Aminotransferase 26 IU/L (17-59); BUN Creatinine Ratio 17.5 (6-22); Bilirubin Total 0.6 mg/dL (0.2-1.3); Blood Urea Nitrogen 21 mg/dL (9-20); Calcium 9.9 mg/dL (8.4-10.2); Carbon Dioxide 30 mmol/L (22-32); Chloride 106 mmol/L (98-107); Cholesterol 203 mg/dL (140-199); Estimated Glomerular Filt Rate > 60.0 mL/min (>60); Globulin 2.8 g/dL (1.7-4.1); Glucose 110 mg/dL (80-110); HDL Cholesterol 34 mg/dL (40-60); HEMOLYSIS < 15 (0-50); LDL Cholesterol Calculated 118 mg/dL (<100); Potassium 4.4 mmol/L (3.4-5.1); Sodium 142 mmol/L (137-145); Total Protein 7.4 g/dL (6.3-8.2); Triglycerides 255 mg/dL (35-150)
[2021-07-04 11:58] LABS: Prostate Specific Antigen Scrn 0.577 ng/mL (0.1-4.0)
== END ==
PROVIDERS: PCP Family Medicine; Referring Provider Family Medicine; Visit Provider Family Medicine
DX: R10.13 Epigastric pain (principal); F32.9 Major depressive disorder, single episode, unspecified; N13.8 Other obstructive and reflux uropathy; N40.1 Benign prostatic hyperplasia with lower urinary tract symptoms; R42 Dizziness and giddiness; Z12.5 Encounter for screening for malignant neoplasm of prostate
CPT/HCPCS: 36415; 80053; 80061; 85025; G0103

== ENCOUNTER → 2021-08-18 10:15 | Outpatient (CLI) | payer OTHER, SELFPAY ==
[2021-08-18 10:38] LABS: COVID19 -Nasal RAPID POSITIVE (Negative)
== END ==
PROVIDERS: PCP Family Medicine; Referring Provider Physician Assistant; Visit Provider Physician Assistant
DX: U07.1 COVID-19 (principal); Z20.822 Contact with and (suspected) exposure to COVID-19
CPT/HCPCS: 87635

== ENCOUNTER → 2021-08-29 14:55 | Outpatient (CLI) | payer OTHER, SELFPAY ==
[2021-08-29 18:33] LABS: Influenza A - CEPHEID Flu A NEGATIVE (NEGATIVE); Influenza B - CEPHEID Flu B NEGATIVE (NEGATIVE)
== END ==
PROVIDERS: PCP Family Medicine; Visit Provider Registered Nurse
DX: J02.9 Acute pharyngitis, unspecified (principal); R53.83 Other fatigue
CPT/HCPCS: 87070; 87502

== ENCOUNTER → 2021-11-22 14:21 | Outpatient (CLI) | payer OTHER, SELFPAY ==
--- NOTE | 2021-11-22 14:22 | DI.RAD.S_ITS ---
PROCEDURE: XR THORACIC SPINE 3V INDICATIONS: RIB PAIN TECHNIQUE: 3 views of the thoracic spine were acquired. COMPARISON: None. FINDINGS: Bones: Anterior wedging of the T8 vertebral body which could be physiologic or related to compression fracture of indeterminate age.. No suspicious bony lesions. 12 pairs of ribs are noted, and appear intact where visualized. Moderate degenerative disc changes noted throughout the thoracic spine. Soft tissues: No paravertebral stripe thickening. IMPRESSION: Moderate multilevel thoracic spine degenerative disc disease. T8 compression fracture of indeterminate age versus physiologic wedging which causes approximately 30% loss of normal anterior vertebral body height. Dictated by: Mary Ricci MD, PhD on 11/22/2021 at 16:17 Approved by: Mary Ricci MD, PhD on 11/22/2021 at 16:19
--- NOTE | 2021-11-22 14:22 | DI.RAD.S_ITS ---
PROCEDURE: XR CERVICAL SPINE 4V OR 5V INDICATIONS: neck pain TECHNIQUE: 5 views of the cervical spine acquired. Oblique images acquired. COMPARISON: [facility], MR, MR CERVICAL SPINE WO CON, 08/08/2019, 8:46. [facility], CR, XR CERVICAL SPINE 2 OR 3 VIEWS, 07/21/2019, 8:06. FINDINGS: Bones: No fractures or dislocations to the C7 level. Oblique images demonstrate no bony foraminal stenoses. There is exaggerated cervical spine lordosis. Mild degenerative change in the cervical spine. [id number] bony neural foraminal narrowing at C3-C4 C4-C5 and C5-C6 bilaterally. Uncovertebral joint hypertrophy. Soft tissues: No prevertebral soft tissue swelling. IMPRESSION: [id number] bony neural foraminal narrowing at C3-C6. Dictated by: Satya Espinosa M.D. on 11/22/2021 at 16:41 Approved by: Satya Espinosa M.D. on 11/22/2021 at 16:44
== END ==
PROVIDERS: PCP Family Medicine; Referring Provider Physical Medicine & Rehabilitation; Visit Provider Physical Medicine & Rehabilitation
DX: S24.8XXA Injury of other specified nerves of thorax, initial encounter (principal); M47.22 Other spondylosis with radiculopathy, cervical region; M48.02 Spinal stenosis, cervical region; M51.34 Other intervertebral disc degeneration, thoracic region
CPT/HCPCS: 72050; 72072

== ENCOUNTER → 2022-07-09 08:51 | Outpatient (CLI) | payer OTHER, SELFPAY ==
[2022-07-09 10:47] LABS: COVID19 -Nasal RAPID Negative (Negative)
--- NOTE | 2022-07-09 14:25 | PM.TREADMILL ---
Cardiac Stress Test Report Referral & Results Date Patient Seen: 07/09/22 Requesting provider: Max Calvillo Indication: Strong family history cardiac disease Rest ECG: Unremarkable Procedure Note: Today following both written and verbal informed consent the patient was exercised according to a standard Rob protocol patient went for a total of 9 minutes 30 seconds achieving a maximum heart rate of 150 maximum systolic blood pressure of 196. This is approximately 10.1 METS. Exercise was terminated at this point because of targets were met. Patient was also given Cardiolite through a previously started Hep-Lock IV by the diagnostic imaging staff approximately 1 minute prior to the cessation of exercise. There were no ST-T segment changes Rare PVC and PAC identified Function aerobic impairment rates about-10% on the active scale or 110% of normal Impression: Patient with excellent exercise capacity. No evidence of ischemia based on usual ECG criteria. Please see perfusion imaging report as well for confirmation Please note: Actual ECG tracings can be found in the PACS system.
--- NOTE | 2022-07-09 17:51 | DI.NM.S_ITS ---
DATE OF SERVICE: 07/09/2022 PROCEDURE: Exercise perfusion study. INDICATION: Exertional dyspnea, hyperlipidemia. RADIOPHARMACEUTICAL: 25.1 millicurie technetium-99m Myoview IV was injected at stress and 12.5 millicurie technetium-99m Myoview IV was injected at rest. CARDIAC STRESS: The patient underwent exercise perfusion study under the supervision of an attending staff using standard Rob protocol. The patient walked on Rob protocol for 9 minutes and 30 seconds, achieved 94 percent of target heart rate. Resting blood pressure 122/84 mmHg. Peak blood pressure 196/90 mmHg. Achieved 10.1 METS of workload. KISHA -10 percent. Baseline rhythm was sinus. During stress, no convincing ischemic changes seen. No significant arrhythmias. No anginal symptoms. RAW DATA: There is increased subdiaphragmatic activity. GATED STUDY: Resting LV ejection fraction 57 and stress LV ejection fraction 71 percent without any obvious wall motion abnormalities. Resting end-diastolic volume 100 mL. TID ratio 0.77, which is within normal limits. Lung/heart ratio 0.32, which is within normal limits. MYOCARDIAL PERFUSION SCAN: Stress supine, resting supine and stress prone images were compared to each other. Resting supine images revealed small size, mildly decreased perfusion of inferior wall, basal inferoseptum. Resting supine images revealed moderate-size, moderate to severely decreased perfusion of inferior wall, inferoapex, as well as inferoseptum. Those defects were completely normalized during stress prone images, suggestive of diaphragmatic tissue attenuation artifact. No convincing ischemia or infarction during stress prone images. CONCLUSION: I will call this study a normal myocardial perfusion study with evidence of diaphragmatic tissue attenuation artifact, which got resolved during stress prone images. Excellent exercise tolerance. Normal hemodynamic response. 1 0.1 metabolic equivalents of workload. Preserved left ventricular function. No obvious ischemic electrocardiographic changes or significant arrhythmias. Preserved left ventricular function. Overall, low-risk myocardial perfusion study. Don Preston - ROBBI/treva/makeda doc#: [id number]/job#: [id number] dd: 07/09/2022 16:44:00 dt: 07/09/2022 17:40:00 DICTATING MD/COPIES TO: Estrada Mcbride MD COPIES MNE: BREANA;
== END ==
PROVIDERS: PCP Family Medicine; Referring Provider Family Medicine; Visit Provider Family Medicine
DX: E78.5 Hyperlipidemia, unspecified (principal); F41.9 Anxiety disorder, unspecified; R06.09 Other forms of dyspnea; R00.2 Palpitations; Z12.5 Encounter for screening for malignant neoplasm of prostate; Z20.822 Contact with and (suspected) exposure to COVID-19; Z82.49 Family history of ischemic heart disease and other diseases of the circulatory system
CPT/HCPCS: 36415; 78452; 80053; 80061; 84443; 85025; 87635; 93016; 93017; 93018; G0103; A9502

== ENCOUNTER → 2022-07-09 10:12 | Outpatient (CLI) | payer OTHER, SELFPAY ==
[2022-07-09 11:16] LABS: Add Manual Diff / Slide Review NO; Basophils Absolute Auto 0 /uL (0-100); Basophils Percent Auto 0.9 % (0-2); Eosinophils Absolute Auto 100 /uL (0-450); Eosinophils Percent Auto 2.6 % (2-4); Hematocrit 43.3 % (41-53); Hemoglobin 15.1 g/dL (13.5-17.5); Lymphocytes Absolute Auto 1800 /uL (1100-4500); Lymphocytes Percent Auto 32.6 % (25-40); Mean Corpuscular Hemoglobin 29.3 PG (26-34); Mean Corpuscular Volume 83.7 fL (80-100); Monocytes Absolute Auto 500 /uL (0-900); Monocytes Percent Auto 8.6 % (3-14); Neutrophils Absolute Auto 3000 /uL (1500-7000); Neutrophils Percent Auto 55.3 % (50-75); Platelet Count 153 X10^3/uL (150-400); Red Blood Cell Count 5.17 X10^6/uL (4.5-5.9); Red Cell Distribution Width 13.7 % (11.6-14.8); White Blood Cell Count 5.5 X10^3/uL (4.5-11.0)
[2022-07-09 12:13] LABS: Prostate Specific Antigen Scrn 0.467 ng/mL (0.1-4.0)
[2022-07-09 12:14] LABS: TSH w/ Reflex to FT4 1.02 uIU/mL (0.47-4.68)
[2022-07-09 12:22] LABS: Alanine Aminotransferase 36 IU/L (<50); Albumin 4.6 g/dL (3.5-5.0); Albumin Globulin Ratio 1.6 (1.0-2.8); Alkaline Phosphatase 57 U/L (38-126); Aspartate Aminotransferase 31 IU/L (17-59); BUN Creatinine Ratio 15.6 (6-22); Bilirubin Total 0.9 mg/dL (0.2-1.3); Blood Urea Nitrogen 15 mg/dL (9-20); Calcium 9.2 mg/dL (8.4-10.2); Carbon Dioxide 26 mmol/L (22-32); Chloride 106 mmol/L (98-107); Cholesterol 212 mg/dL (140-199); Estimated Glomerular Filt Rate > 60 mL/min (>60); Globulin 2.9 g/dL (1.7-4.1); Glucose 96 mg/dL (80-110); HDL Cholesterol 32 mg/dL (40-60); HEMOLYSIS 15 (0-50); LDL Cholesterol Calculated 151 mg/dL (<100); Potassium 4.3 mmol/L (3.4-5.1); Sodium 142 mmol/L (137-145); Total Protein 7.5 g/dL (6.3-8.2); Triglycerides 145 mg/dL (35-150)
== END ==
PROVIDERS: PCP Family Medicine; Referring Provider Family Medicine; Visit Provider Family Medicine
DX: E78.5 Hyperlipidemia, unspecified (principal); F41.9 Anxiety disorder, unspecified; R00.2 Palpitations; Z12.5 Encounter for screening for malignant neoplasm of prostate
CPT/HCPCS: 36415; 80053; 80061; 84443; 85025; G0103

== ENCOUNTER 2022-10-19 14:16 | Day surgery (SDC) | payer OTHER, SELFPAY ==
[2022-10-19] VITALS (7 sets, daily range): BP systolic 85–134; BP diastolic 55–84; PULSE 60–74; RESP 12–19; TEMP 36.2–36.4; O2SAT 94–97; BMI 24.3
--- NOTE | 2022-10-19 | PATH_ITS ---
[facility] Accession Number: [id number] No. of containers..04 Tissue . 01 Material submitted: . PART A: cecum - CECAL POLYP PART B: colon - TRANSVERSE COLON POLYP PART C: colon - TRANSVERSE COLON POLYPS X 3 PART D: rectum - RECTAL POLYP . 01 Diagnosis: A. Cecum, Polyp, Biopsy: Tubular adenoma. Additional levels were examined. . B. Transverse Colon, Polyp, Biopsy: Tubulovillous adenoma. No evidence of malignancy or high-grade dysplasia. . C. Transverse Colon, Polyp x3, Biopsy: Sessile serrated adenoma in 1 of 3 fragments. Additional levels were examined. . D. Rectum, Polyp, Biopsy: Hyperplastic polyp. [facility] 10/25/2022 1609 Local . 01 Electronically signed: . Loida Mercado MD, Pathologist NPI- [id number] . 01 Gross description: . Part A: CECAL POLYP: Received in formalin is 1 fragment(s) of cooley, soft tissue measuring 0.4 x 0.3 x 0.2 cm submitted entirely in 1 cassette(s) Part B: TRANSVERSE COLON POLYP: Received in formalin are multiple fragment(s) of cooley, soft tissue measuring 0.1 x 0.1 x 0.1 cm to 0.3 x 0.2 x 0.2 cm submitted entirely in 1 cassette(s) Part C: TRANSVERSE COLON POLYPS X 3: Received in formalin are 3 fragment(s) of cooley, soft tissue measuring 0.2 x 02 x 0.1 cm to 0.7 x 0.4 x 0.3 cm submitted entirely in 1 cassette(s) Part D: RECTAL POLYP: Received in formalin is 1 fragment(s) of cooley, soft tissue measuring 0.3 x 0.3 x 0.3 cm submitted entirely in 1 cassette(s) /ROSALINA 10/22/2022 1920 Local . 01 Pathologist provided ICD-10: D12.0, D12.3, K62.1 . 01 CPT . 956243, 020355, 408097, 458371 Specimen Comment: A courtesy copy of this report has been sent to [facility] Pathology Performed at: [address] [facility] [address] [place] [address], [place], [place] [id number] MD Stanley Styles MD Phone: [phone]
[2022-10-19] MEDS: LACTATED RINGERS 1,000 ML 150 ML IV (14:46)
--- NOTE | 2022-10-19 14:49 | P.HP_ITS ---
History of Present Illness History of Present Illness Date Patient Seen: 10/19/22 Time Patient Seen: 14:49 Chief complaint: SDC, history of polyps Narrative: Mr. Preston presents today for a screening colonoscopy. He has had at least 3 colonoscopies in the past he thinks most recently was in [place] (spelling?). He isn't sure if he had polyps this last time, but he certainly has a history of colon polyps has and has been on a 5 year screening regimen. Has no family history of colon cancer although he does know his dad had several polyps also. He has no concerning symptoms of bleeding or changes in bowel habits. He is never had surgery in his abdomen before. He has no other questions. [facility] Medical History Anxiety BPH w urinary obs/LUTS BPH w urinary obs/LUTS Cervical spondylosis with radiculopathy Depression Elevated PSA Erectile dysfunction Erectile dysfunction GERD (gastroesophageal reflux disease) Heartburn Impingement syndrome of left shoulder Respiratory infection Shoulder pain Vertigo Surgical History Anesthesia History of hernia repair (~2011) Family History Father Diabetes mellitus History of heart disease Mother History of heart disease Brother History of heart disease Brother Mental health problem Social History household members: spouse Smoking Status: Former smoker alcohol intake: never Meds Home Medications and Allergies Home Medications Medication Instructions Recorded Confirmed Type lorazepam 0.5 mg tablet 0.5 mg PO BID PRN anxiety #20 tabs 06/28/22 10/19/22 Rx escitalopram oxalate 20 mg tablet 20 mg PO DAILY #90 tabs 07/13/22 10/19/22 Rx (Lexapro) rosuvastatin 10 mg tablet (Crestor) 10 mg PO DAILY #90 tabs 07/13/22 10/19/22 Rx Allergies Allergy/AdvReac Type Severity Reaction Status Date / Time No Known Drug Allergies Allergy Verified 10/19/22 14:34 Exam Vital Signs (past 8 hours): - 10/19/22 14:36 Temperature 97.6 F Pulse Rate 74 Respiratory Rate 19 Blood Pressure 134/84 Pulse Oximetry 95 Oxygen Delivery Method Room Air Oxygen Delivery Method Room Air Const General: cooperative, healthy appearing and comfortable Eyes General: appearance normal, both eyes and all related structures Resp Effort & Inspection: normal respiratory effort and able to speak in complete sentences GI Palpation: soft and No tender Assessment & Plan Assessment and plan (1) History of colon polyps: Status: Acute (2) Family history of polyps in the colon: Status: Acute (3) Colon cancer screening: Status: Acute Assessment & Plan narrative: Presents today for screening colonoscopy I discussed the risks benefits and alternatives including but not limited to perforation of the colon and an incomplete exam he fully understands these risks and would like to proceed.
--- NOTE | 2022-10-19 16:27 | P.OP.COLON_ITS ---
Operative Date/Time/Diagnoses Date of procedure: 10/19/22 Pre-op diagnosis: Screening for colon cancer, history of polyps Post-op diagnosis: same Procedure & Clinicians Study performed: colonoscopy and biopsy Indications: History of polyps, family history of polyps Surgeon: Dora Leahy Procedure Notes Procedure in detail: Patient was taken to the endoscopy suite and placed in a left lateral decubitus position. Time-out was performed. Anesthesiologist assisted in inducing and maintaining conscious sedation throughout the case. Digital rectal exam was performed there were no masses or strictures. The colonoscope was introduced into the anal canal and advanced through to the cecum. The prep was good [place] bowel prep score of 2. A photograph of the appendiceal orifice was obtained. There was 1 small polyp in the cecum that was removed with the biopsy forceps. The scope was then withdrawn total withdrawal time was 23 minutes. In the transverse colon there was a decently large approximately 1 cm sized transverse colon polyp that was snared and removed. Upon further withdrawal there were 3 additional smaller polyps in the transverse colon that were removed with biopsy forceps. Finally there was a small rectal polyp that was also biopsied and removed. A total of 6 polyps were seen and removed. Additionally there were diverticula throughout the sigmoid colon. The colonoscope was retroflexed and the hemorrhoidal piles appeared normal. A photograph was obtained. Patient tolerated the procedure well and went in good condition to the postoperative care unit Specimen(s): other (1. Cecal polyp 2. Transverse colon polyp x1 3. Transverse colon polyps x3 4. Rectal polyp) Complications: none Post-procedure Plan for aftercare: Follow-up will probably be in 3-5 years depending on the pathology of these polyps. Additionally because of both the polyps and the diverticula I have recommended a fiber supplement.
== END 2022-10-19 16:16 | disposition home or self-care (01) ==
PROVIDERS: PCP Family Medicine; Referring Provider Surgery; Visit Provider Surgery
PROC: 0DJD8ZZ Inspection of Lower Intestinal Tract, Via Natural or Artificial Opening Endoscopic (ICD-10-PCS; CPT 45378; principal; 2022-10-19 15:30)
DX: Z12.11 Encounter for screening for malignant neoplasm of colon (principal); Z86.010 Personal history of colon polyps; Z83.71 Family history of colonic polyps; K57.30 Diverticulosis of large intestine without perforation or abscess without bleeding; D12.0 Benign neoplasm of cecum; D12.3 Benign neoplasm of transverse colon; K62.1 Rectal polyp
CPT/HCPCS: 45380; J2704

== ENCOUNTER 2023-03-26 16:23 | Inpatient (IN) | payer OTHER, SELFPAY ==
[2023-03-26] VITALS (8 sets, daily range): BP systolic 133–173; BP diastolic 62–83; PULSE 68–87; RESP 11–18; TEMP 37.2–38; O2SAT 88–97; BMI 25.8
[2023-03-26 17:02] LABS: COVID19 -Nasal RAPID Negative (Negative)
--- NOTE | 2023-03-26 17:10 | DI.RAD.S_ITS ---
PROCEDURE: XR CHEST 1V INDICATIONS: suspected sepsis TECHNIQUE: One view of the chest was acquired. COMPARISON: None. FINDINGS: Surgical changes and devices: None. Lungs and pleura: Lungs are clear. No pleural effusions or pneumothorax. Mediastinum: Mediastinal contours appear normal. Heart size is normal. Bones and chest wall: No suspicious bony lesions. Overlying soft tissues appear unremarkable. IMPRESSION: No acute process. Dictated by: Rj Daily M.D. on 03/26/2023 at 17:36 Approved by: Rj Daily M.D. on 03/26/2023 at 17:36
[2023-03-26] MEDS: SODIUM CHLORIDE 0.9% 1,000 ML 1000 ML IV (17:22)
[2023-03-26 17:31] LABS: Add Manual Diff / Slide Review NO; Basophils Absolute Auto 100 /uL (0-100); Basophils Percent Auto 0.6 % (0-2); Eosinophils Absolute Auto 100 /uL (0-450); Eosinophils Percent Auto 0.7 % (2-4); Hemoglobin 14.6 g/dL (13.5-17.5); Lymphocytes Absolute Auto 1200 /uL (1100-4500); Lymphocytes Percent Auto 11.6 % (25-40); Mean Corpuscular HGB Conc 34.8 % (30-36); Mean Corpuscular Hemoglobin 29.4 PG (26-34); Mean Corpuscular Volume 84.6 fL (80-100); Monocytes Absolute Auto 900 /uL (0-900); Monocytes Percent Auto 8.7 % (3-14); Neutrophils Absolute Auto 7800 /uL (1500-7000); Neutrophils Percent Auto 78.4 % (50-75); Platelet Count 127 X10^3/uL (150-400); Red Blood Cell Count 4.96 X10^6/uL (4.5-5.9)
--- NOTE | 2023-03-26 17:31 | ED.GENADULT ---
HPI - General Adult <Fredo OtonielDO butch - Last Filed: 04/01/23 07:18> General Chief complaint: Fever Stated complaint: abd pain Time Seen by Provider: 03/26/23 17:20 Source: patient Mode of arrival: Ambulatory History of Present Illness HPI narrative: 62 year old male who here for evaluation of fevers body aches and sore throat and right upper quadrant abdominal pain since last evening. Has been having normal bowel movements and normal urination. He did eat this morning they did not necessarily think that a change the pain at all. He has had an inguinal hernia repair in the past but no other abdominal surgeries. No diarrhea. No recent travel. No recent antibiotics. Related Data Home Medications Medication Instructions Recorded Confirmed esomeprazole magnesium 20 mg 20 mg PO DAILY 03/26/23 03/26/23 capsule,delayed release (Nexium) Previous Rx's Medication Instructions Recorded escitalopram oxalate 20 mg tablet See Rx Instructions .Route 01/02/23 .COMPLEX #90 tabs rosuvastatin 10 mg tablet See Rx Instructions .Route 01/02/23 .COMPLEX #90 tabs acetaminophen 325 mg capsule 650 mg PO QID PRN pain #60 caps 03/27/23 (Tylenol) celecoxib 200 mg capsule (Celebrex) 200 mg PO BID #20 caps 03/27/23 oxycodone 5 mg tablet 5 mg PO Q6H PRN pain #20 tabs 03/27/23 Allergies Allergy/AdvReac Type Severity Reaction Status Date / Time No Known Drug Allergies Allergy Verified 03/26/23 16:35 Review of Systems <DO Elizabeth Mcarthur Last Filed: 04/01/23 07:18> Constitutional Constitutional: Reports system reviewed and no additional complaints, except as documented ENT Ears, Nose, Mouth, and Throat: Reports system reviewed and no additional complaints, except as documented Cardiovascular Cardiovascular: Reports system reviewed and no additional complaints, except as documented Gastrointestinal Gastrointestinal: Reports system reviewed and no additional complaints, except as documented Genitourinary Genitourinary: Reports system reviewed and no additional complaints, except as documented Integumentary/Breasts Skin/Breast: Reports system reviewed and no additional complaints, except as documented Hematologic/Lymphatic On Anticoagulants: No Patient History <DO Elizabeth Mcarthur Last Filed: 04/01/23 07:18> Medical History Anxiety BPH w urinary obs/LUTS BPH w urinary obs/LUTS Cervical spondylosis with radiculopathy Depression Elevated PSA Erectile dysfunction Erectile dysfunction GERD (gastroesophageal reflux disease) Heartburn Impingement syndrome of left shoulder Respiratory infection Shoulder pain Vertigo Surgical History Anesthesia History of hernia repair (~2011) Family History Father Diabetes mellitus History of heart disease Mother History of heart disease Brother History of heart disease Brother Mental health problem Social History household members: spouse Smoking Status: Former smoker alcohol intake: former Smoking Status: Former smoker alcohol intake frequency: other Substance Use Type: does not use Exam <Fredo Mathews, DO - Last Filed: 04/01/23 07:18> Initial Vital Signs Initial Vital Signs: Vital Signs Temperature 100.4 F H 03/26/23 16:30 Pulse Rate 68 03/26/23 16:30 Respiratory Rate 17 03/26/23 16:30 Blood Pressure 140/62 03/26/23 16:30 Pulse Oximetry 97 03/26/23 16:30 Oxygen Delivery Method Room Air 03/26/23 16:30 HENMT Head: normal to inspection and normocephalic Resp Effort & Inspection: normal respiratory effort Auscultation: clear to auscultation bilaterally Cardio Rate: regular rate Rhythm: regular rhythm GI Inspection: normal to inspection and non-distended Palpation: soft, No firm, No guarding and tender (Right upper quadrant) Back/Spine/Pelvis Back: No CVA tenderness Skin General: no rashes or lesions noted Neuro General: patient alert, patient awake and moves all extremities Extrem General: normal to inspection and capillary refill normal <Alon Sosa, DO - Last Filed: 03/27/23 00:53> Initial Vital Signs Initial Vital Signs: Vital Signs Temperature 100.4 F H 03/26/23 16:30 Pulse Rate 68 03/26/23 16:30 Respiratory Rate 17 03/26/23 16:30 Blood Pressure 140/62 03/26/23 16:30 Pulse Oximetry 97 03/26/23 16:30 Oxygen Delivery Method Room Air 03/26/23 16:30 Course <Fredo Mathews DO - Last Filed: 04/01/23 07:18> Orders Ordered: Discontinued Medications Acetaminophen (Acetaminophen 325 Mg Tablet) 650 mg PO Q6H [facility] Last Admin: 03/28/23 06:14 Dose: 650 mg Documented By: Admin: 03/28/23 00:55 Dose: 650 mg Documented By: Admin: 03/27/23 19:38 Dose: Not Given Documented By: JESSA Atorvastatin Calcium (Atorvastatin 20 Mg Tablet) 10 mg PO BEDTIME [facility] Last Admin: 03/27/23 21:25 Dose: 10 mg Documented By: JESSA Bupivacaine HCl (Bupivacaine 0.25% (Pf) Vial) 30 ml INJ NOW ONE Stop: 03/27/23 17:48 Last Admin: 03/27/23 17:47 Dose: 30 ml Documented By: MATTEO Celecoxib (Celecoxib 200 Mg Capsule) 200 mg PO BID [facility] Last Admin: 03/28/23 08:40 Dose: 200 mg Documented By: Admin: 03/27/23 21:25 Dose: Not Given Documented By: JESSA Escitalopram Oxalate (Escitalopram 10 Mg Tablet) 20 mg PO DAILY [facility] Last Admin: 03/28/23 08:43 Dose: Not Given Documented By: Admin: 03/27/23 21:25 Dose: 20 mg Documented By: JESSA Hydromorphone HCl (Hydromorphone 1 Mg Inj) 1 mg IV NOW ONE Stop: 03/26/23 18:09 Last Admin: 03/26/23 18:13 Dose: 1 mg Documented By: SARITHA Hydromorphone HCl (Hydromorphone 1 Mg Inj) 1 mg IV NOW ONE Stop: 03/26/23 18:22 Last Admin: 03/26/23 18:25 Dose: 1 mg Documented By: MATTEO(2) Hydromorphone HCl (Hydromorphone 0.5 Mg Inj) 0.5 mg IV Q2H PRN PRN Reason: Pain, Severe (7-10) Last Admin: 03/27/23 08:15 Dose: 0.5 mg Documented By: Admin: 03/27/23 04:30 Dose: 0.5 mg Documented By: JAYE Hydromorphone HCl (Hydromorphone 1 Mg Inj) 0 mg IV Q5MIN PRN PRN Reason: Pain, Severe (7-10) Sodium Chloride (Normal Saline 0.9%) 1,000 mls @ 1,000 mls/hr IV BOLUS ONE Stop: 03/26/23 18:09 Last Infusion: 03/26/23 19:19 Dose: 0 mls/hr Documented By: Admin: 03/26/23 17:22 Dose: 1,000 mls/hr Documented By: MATTEO(2) Sodium Chloride (Normal Saline 0.9%) 1,000 mls @ 150 mls/hr IV CONT LEEANNA Stop: 03/27/23 18:41 Last Infusion: 03/26/23 21:30 Dose: 0 mls/hr Documented By: Admin: 03/26/23 18:20 Dose: 150 mls/hr Documented By: SARITHA Piperacillin Sod/Tazobactam (Sod 4.5 gm/ Sodium Chloride) 100 mls @ 200 mls/hr IV NOW ONE Stop: 03/26/23 20:29 Last Infusion: 03/27/23 00:19 Dose: 0 mls/hr Documented By: Admin: 03/26/23 20:51 Dose: 200 mls/hr Documented By: ABIGAIL Sodium Chloride (Normal Saline 0.9%) 1,000 mls @ 125 mls/hr IV CONT LEEANNA Last Admin: 03/28/23 06:14 Dose: 125 mls/hr Documented By: Infusion: 03/28/23 05:57 Dose: 125 mls/hr Documented By: Admin: 03/27/23 21:57 Dose: 125 mls/hr Documented By: Infusion: 03/27/23 13:00 Dose: 125 mls/hr Documented By: Admin: 03/27/23 04:21 Dose: 125 mls/hr Documented By: Infusion: 03/27/23 04:21 Dose: 0 mls/hr Documented By: Admin: 03/26/23 21:30 Dose: 125 mls/hr Documented By: JAYE Piperacillin Sod/Tazobactam (Sod 3.375 gm/ Sodium Chloride) 100 mls @ 25 mls/hr IV Q8H [facility] Last Infusion: 03/28/23 08:50 Dose: 25 mls/hr Documented By: Admin: 03/28/23 04:50 Dose: 25 mls/hr Documented By: Infusion: 03/28/23 02:18 Dose: 0 mls/hr Documented By: Admin: 03/27/23 21:25 Dose: 25 mls/hr Documented By: Infusion: 03/27/23 14:57 Dose: 0 mls/hr Documented By: Admin: 03/27/23 11:49 Dose: 25 mls/hr Documented By: Infusion: 03/27/23 09:39 Dose: 25 mls/hr Documented By: Admin: 03/27/23 04:22 Dose: 25 mls/hr Documented By: JAYE Lactated Ringer's (Lactated Ringers) 1,000 mls @ 42 mls/hr IV CONT LEEANNA Last Infusion: 03/27/23 17:51 Dose: 42 mls/hr Documented By: Admin: 03/27/23 17:51 Dose: 42 mls/hr Documented By: Admin: 03/27/23 14:45 Dose: 42 mls/hr Documented By: ALESSIO Morphine Sulfate (Morphine 4 Mg/Ml Inj) 4 mg IV NOW ONE Stop: 03/26/23 17:33 Last Admin: 03/26/23 17:43 Dose: 4 mg Documented By: SARITHA Naloxone HCl (Naloxone 0.4 Mg/Ml Vial) 0.2 mg IV Q2MIN PRN PRN Reason: Opiate Reversal Ondansetron HCl (Ondansetron 4 Mg Odt) 4 mg PO NOW PRN PRN Reason: Nausea And Vomiting Ondansetron HCl (Ondansetron 4 Mg/2 Ml Inj) 4 mg IV NOW PRN PRN Reason: Nausea And Vomiting Ondansetron HCl (Ondansetron 4 Mg/2 Ml Inj) 4 mg IV Q4HR PRN PRN Reason: Nausea And Vomiting Oxycodone HCl (Oxycodone Ir 5 Mg Tablet) 5 mg PO PACUNOW PRN PRN Reason: Mild or moderate pain Last Admin: 03/27/23 19:03 Dose: 5 mg Documented By: DEVIN Oxycodone HCl (Oxycodone Ir 5 Mg Tablet) 5 mg PO Q3H PRN PRN Reason: Pain, Moderate (4-6) Last Admin: 03/28/23 08:42 Dose: 5 mg Documented By: Admin: 03/28/23 04:50 Dose: 5 mg Documented By: Admin: 03/28/23 00:54 Dose: 5 mg Documented By: JESSA Pantoprazole Sodium (Pantoprazole Dr 40 Mg Tablet) 40 mg PO 0700 [facility] Last Admin: 03/28/23 06:14 Dose: 40 mg Documented By: JESSA Vital Signs Vital signs: Vital Signs - 8 hr 03/26/23 17:18 03/26/23 18:41 03/26/23 19:30 Temperature 99.0 F Pulse Rate 87 Respiratory Rate 12 Blood Pressure 173/83 H 155/69 H Pulse Oximetry 88 L Oxygen Delivery Method Room Air Oxygen Flow Rate 03/26/23 19:30 03/26/23 19:45 03/26/23 19:45 Temperature Pulse Rate 78 76 Respiratory Rate 16 Blood Pressure 142/62 H Pulse Oximetry 96 97 Oxygen Delivery Method Oxygen Flow Rate 03/26/23 20:00 03/26/23 20:00 03/26/23 20:15 Temperature Pulse Rate 76 Respiratory Rate 13 Blood Pressure 133/62 135/66 Pulse Oximetry 96 Oxygen Delivery Method Nasal Cannula Oxygen Flow Rate 2 03/26/23 20:15 Temperature Pulse Rate 74 Respiratory Rate 11 L Blood Pressure Pulse Oximetry 97 Oxygen Delivery Method Oxygen Flow Rate <Alon Sosa, DO - Last Filed: 03/27/23 00:53> Orders Ordered: Discontinued Medications Acetaminophen (Acetaminophen 325 Mg Tablet) 650 mg PO Q6H [facility] Last Admin: 03/28/23 06:14 Dose: 650 mg Documented By: Admin: 03/28/23 00:55 Dose: 650 mg Documented By: Admin: 03/27/23 19:38 Dose: Not Given Documented By: JESSA Atorvastatin Calcium (Atorvastatin 20 Mg Tablet) 10 mg PO BEDTIME [facility] Last Admin: 03/27/23 21:25 Dose: 10 mg Documented By: JESSA Bupivacaine HCl (Bupivacaine 0.25% (Pf) Vial) 30 ml INJ NOW ONE Stop: 03/27/23 17:48 Last Admin: 03/27/23 17:47 Dose: 30 ml Documented By: MATTEO Celecoxib (Celecoxib 200 Mg Capsule) 200 mg PO BID [facility] Last Admin: 03/28/23 08:40 Dose: 200 mg Documented By: Admin: 03/27/23 21:25 Dose: Not Given Documented By: JESSA Escitalopram Oxalate (Escitalopram 10 Mg Tablet) 20 mg PO DAILY [facility] Last Admin: 03/28/23 08:43 Dose: Not Given Documented By: Admin: 03/27/23 21:25 Dose: 20 mg Documented By: JESSA Hydromorphone HCl (Hydromorphone 1 Mg Inj) 1 mg IV NOW ONE Stop: 03/26/23 18:09 Last Admin: 03/26/23 18:13 Dose: 1 mg Documented By: SARITHA Hydromorphone HCl (Hydromorphone 1 Mg Inj) 1 mg IV NOW ONE Stop: 03/26/23 18:22 Last Admin: 03/26/23 18:25 Dose: 1 mg Documented By: MATTEO(2) Hydromorphone HCl (Hydromorphone 0.5 Mg Inj) 0.5 mg IV Q2H PRN PRN Reason: Pain, Severe (7-10) Last Admin: 03/27/23 08:15 Dose: 0.5 mg Documented By: Admin: 03/27/23 04:30 Dose: 0.5 mg Documented By: JAYE Hydromorphone HCl (Hydromorphone 1 Mg Inj) 0 mg IV Q5MIN PRN PRN Reason: Pain, Severe (7-10) Sodium Chloride (Normal Saline 0.9%) 1,000 mls @ 1,000 mls/hr IV BOLUS ONE Stop: 03/26/23 18:09 Last Infusion: 03/26/23 19:19 Dose: 0 mls/hr Documented By: Admin: 03/26/23 17:22 Dose: 1,000 mls/hr Documented By: MATTEO(2) Sodium Chloride (Normal Saline 0.9%) 1,000 mls @ 150 mls/hr IV CONT LEEANNA Stop: 03/27/23 18:41 Last Infusion: 03/26/23 21:30 Dose: 0 mls/hr Documented By: Admin: 03/26/23 18:20 Dose: 150 mls/hr Documented By: SARITHA Piperacillin Sod/Tazobactam (Sod 4.5 gm/ Sodium Chloride) 100 mls @ 200 mls/hr IV NOW ONE Stop: 03/26/23 20:29 Last Infusion: 03/27/23 00:19 Dose: 0 mls/hr Documented By: Admin: 03/26/23 20:51 Dose: 200 mls/hr Documented By: ABIGAIL Sodium Chloride (Normal Saline 0.9%) 1,000 mls @ 125 mls/hr IV CONT LEEANNA Last Admin: 03/28/23 06:14 Dose: 125 mls/hr Documented By: Infusion: 03/28/23 05:57 Dose: 125 mls/hr Documented By: Admin: 03/27/23 21:57 Dose: 125 mls/hr Documented By: Infusion: 03/27/23 13:00 Dose: 125 mls/hr Documented By: Admin: 03/27/23 04:21 Dose: 125 mls/hr Documented By: Infusion: 03/27/23 04:21 Dose: 0 mls/hr Documented By: Admin: 03/26/23 21:30 Dose: 125 mls/hr Documented By: JAYE Piperacillin Sod/Tazobactam (Sod 3.375 gm/ Sodium Chloride) 100 mls @ 25 mls/hr IV Q8H [facility] Last Infusion: 03/28/23 08:50 Dose: 25 mls/hr Documented By: Admin: 03/28/23 04:50 Dose: 25 mls/hr Documented By: Infusion: 03/28/23 02:18 Dose: 0 mls/hr Documented By: Admin: 03/27/23 21:25 Dose: 25 mls/hr Documented By: Infusion: 03/27/23 14:57 Dose: 0 mls/hr Documented By: Admin: 03/27/23 11:49 Dose: 25 mls/hr Documented By: Infusion: 03/27/23 09:39 Dose: 25 mls/hr Documented By: Admin: 03/27/23 04:22 Dose: 25 mls/hr Documented By: JAYE Lactated Ringer's (Lactated Ringers) 1,000 mls @ 42 mls/hr IV CONT LEEANNA Last Infusion: 03/27/23 17:51 Dose: 42 mls/hr Documented By: Admin: 03/27/23 17:51 Dose: 42 mls/hr Documented By: Admin: 03/27/23 14:45 Dose: 42 mls/hr Documented By: ALESSIO Morphine Sulfate (Morphine 4 Mg/Ml Inj) 4 mg IV NOW ONE Stop: 03/26/23 17:33 Last Admin: 03/26/23 17:43 Dose: 4 mg Documented By: SARITHA Naloxone HCl (Naloxone 0.4 Mg/Ml Vial) 0.2 mg IV Q2MIN PRN PRN Reason: Opiate Reversal Ondansetron HCl (Ondansetron 4 Mg Odt) 4 mg PO NOW PRN PRN Reason: Nausea And Vomiting Ondansetron HCl (Ondansetron 4 Mg/2 Ml Inj) 4 mg IV NOW PRN PRN Reason: Nausea And Vomiting Ondansetron HCl (Ondansetron 4 Mg/2 Ml Inj) 4 mg IV Q4HR PRN PRN Reason: Nausea And Vomiting Oxycodone HCl (Oxycodone Ir 5 Mg Tablet) 5 mg PO PACUNOW PRN PRN Reason: Mild or moderate pain Last Admin: 03/27/23 19:03 Dose: 5 mg Documented By: DEVIN Oxycodone HCl (Oxycodone Ir 5 Mg Tablet) 5 mg PO Q3H PRN PRN Reason: Pain, Moderate (4-6) Last Admin: 03/28/23 08:42 Dose: 5 mg Documented By: Admin: 03/28/23 04:50 Dose: 5 mg Documented By: Admin: 03/28/23 00:54 Dose: 5 mg Documented By: JESSA Pantoprazole Sodium (Pantoprazole Dr 40 Mg Tablet) 40 mg PO 0700 [facility] Last Admin: 03/28/23 06:14 Dose: 40 mg Documented By: JESSA Vital Signs Vital signs: Vital Signs - 8 hr 03/26/23 17:18 03/26/23 18:41 03/26/23 19:30 Temperature 99.0 F Pulse Rate 87 Respiratory Rate 12 Blood Pressure 173/83 H 155/69 H Pulse Oximetry 88 L Oxygen Delivery Method Room Air Oxygen Flow Rate 03/26/23 19:30 03/26/23 19:45 03/26/23 19:45 Temperature Pulse Rate 78 76 Respiratory Rate 16 Blood Pressure 142/62 H Pulse Oximetry 96 97 Oxygen Delivery Method Oxygen Flow Rate 03/26/23 20:00 03/26/23 20:00 03/26/23 20:15 Temperature Pulse Rate 76 Respiratory Rate 13 Blood Pressure 133/62 135/66 Pulse Oximetry 96 Oxygen Delivery Method Nasal Cannula Oxygen Flow Rate 2 03/26/23 20:15 Temperature Pulse Rate 74 Respiratory Rate 11 L Blood Pressure Pulse Oximetry 97 Oxygen Delivery Method Oxygen Flow Rate Medical Decision Making <Fredo Mathews DO - Last Filed: 04/01/23 07:18> Lab Data Lab results reviewed: Yes I reviewed the patient's lab results. 03/26/23 17:23 03/26/23 17:23 Labs: Lab Results 03/26/23 03/26/23 03/26/23 Range/Units 16:34 17:23 17:23 WBC 10.0 (4.5-11.0) X10^3/uL RBC 4.96 (4.5-5.9) X10^6/uL Hgb 14.6 (13.5-17.5) g/dL Hct 42.0 (41-53) % MCV 84.6 (80-100) fL MCH 29.4 (26-34) PG MCHC 34.8 (30-36) % RDW 13.0 (11.6-14.8) % Plt Count 127 L (150-400) X10^3/uL Neut % (Auto) 78.4 H (50-75) % Lymph % (Auto) 11.6 L (25-40) % Rooks % (Auto) 8.7 (3-14) % Eos % (Auto) 0.7 L (2-4) % Baso % (Auto) 0.6 (0-2) % Neut # (Auto) 7800 H (9437-1215) /uL Lymph # (Auto) 1200 (7545-8689) /uL Rooks # (Auto) 900 (0-900) /uL Eos # (Auto) 100 (0-450) /uL Baso # (Auto) 100 (0-100) /uL PT (10.1-12.7) SECONDS INR (0.9-1.3) APTT (26-36) SECONDS Sodium 139 (137-145) mmol/L Potassium 3.8 (3.4-5.1) mmol/L Chloride 104 (98-107) mmol/L Carbon Dioxide 25 (22-32) mmol/L BUN 17 (9-20) mg/dL Creatinine 1.04 (0.66-1.25) mg/dL Estimated GFR > 60 (>60) mL/min BUN/Creatinine Ratio 16.3 (6-22) Glucose 118 H (80-110) mg/dL Lactate (0.7-2.1) mmol/L Calcium 9.5 (8.4-10.2) mg/dL Total Bilirubin 1.1 (0.2-1.3) mg/dL AST 25 (17-59) IU/L ALT 32 (<50) IU/L Alkaline Phosphatase 62 (38-126) U/L Total Protein 7.5 (6.3-8.2) g/dL Albumin 4.6 (3.5-5.0) g/dL Globulin 2.9 (1.7-4.1) g/dL Albumin/Globulin Ratio 1.6 (1.0-2.8) Lipase 281 (23-300) U/L Procalcitonin (<0.5) ng/mL SARS-CoV-2 (PCR) Negative (Negative) Blood Type Antibody Screen 03/26/23 03/26/23 03/26/23 Range/Units 17: 17: 17:23 WBC (4.5-11.0) X10^3/uL RBC (4.5-5.9) X10^6/uL Hgb (13.5-17.5) g/dL Hct (41-53) % MCV (80-100) fL MCH (26-34) PG MCHC (30-36) % RDW (11.6-14.8) % Plt Count (150-400) X10^3/uL Neut % (Auto) (50-75) % Lymph % (Auto) (25-40) % Rooks % (Auto) (3-14) % Eos % (Auto) (2-4) % Baso % (Auto) (0-2) % Neut # (Auto) (3146-7420) /uL Lymph # (Auto) (0366-9097) /uL Rooks # (Auto) (0-900) /uL Eos # (Auto) (0-450) /uL Baso # (Auto) (0-100) /uL PT 12.6 (10.1-12.7) SECONDS INR 1.1 (0.9-1.3) APTT 26 (26-36) SECONDS Sodium (137-145) mmol/L Potassium (3.4-5.1) mmol/L Chloride (98-107) mmol/L Carbon Dioxide (22-32) mmol/L BUN (9-20) mg/dL Creatinine (0.66-1.25) mg/dL Estimated GFR (>60) mL/min BUN/Creatinine Ratio (6-22) Glucose (80-110) mg/dL Lactate 1.4 (0.7-2.1) mmol/L Calcium (8.4-10.2) mg/dL Total Bilirubin (0.2-1.3) mg/dL AST (17-59) IU/L ALT (<50) IU/L Alkaline Phosphatase (38-126) U/L Total Protein (6.3-8.2) g/dL Albumin (3.5-5.0) g/dL Globulin (1.7-4.1) g/dL Albumin/Globulin Ratio (1.0-2.8) Lipase (23-300) U/L Procalcitonin 0.24 (<0.5) ng/mL SARS-CoV-2 (PCR) (Negative) Blood Type Antibody Screen 03/26/23 Range/Units 18:19 WBC (4.5-11.0) X10^3/uL RBC (4.5-5.9) X10^6/uL Hgb (13.5-17.5) g/dL Hct (41-53) % MCV (80-100) fL MCH (26-34) PG MCHC (30-36) % RDW (11.6-14.8) % Plt Count (150-400) X10^3/uL Neut % (Auto) (50-75) % Lymph % (Auto) (25-40) % Rooks % (Auto) (3-14) % Eos % (Auto) (2-4) % Baso % (Auto) (0-2) % Neut # (Auto) (5827-1899) /uL Lymph # (Auto) (0068-8238) /uL Rooks # (Auto) (0-900) /uL Eos # (Auto) (0-450) /uL Baso # (Auto) (0-100) /uL PT (10.1-12.7) SECONDS INR (0.9-1.3) APTT (26-36) SECONDS Sodium (137-145) mmol/L Potassium (3.4-5.1) mmol/L Chloride (98-107) mmol/L Carbon Dioxide (22-32) mmol/L BUN (9-20) mg/dL Creatinine (0.66-1.25) mg/dL Estimated GFR (>60) mL/min BUN/Creatinine Ratio (6-22) Glucose (80-110) mg/dL Lactate (0.7-2.1) mmol/L Calcium (8.4-10.2) mg/dL Total Bilirubin (0.2-1.3) mg/dL AST (17-59) IU/L ALT (<50) IU/L Alkaline Phosphatase (38-126) U/L Total Protein (6.3-8.2) g/dL Albumin (3.5-5.0) g/dL Globulin (1.7-4.1) g/dL Albumin/Globulin Ratio (1.0-2.8) Lipase (23-300) U/L Procalcitonin (<0.5) ng/mL SARS-CoV-2 (PCR) (Negative) Blood Type B Positive Antibody Screen Negative Imaging Data Chest x-ray: Radiologist's Impression: PROCEDURE:? XR CHEST 1V ? INDICATIONS:? suspected sepsis ? TECHNIQUE:? One view of the chest was acquired.? ? COMPARISON:? None. ? FINDINGS:? ? Surgical changes and devices:? None.? ? Lungs and pleura:? Lungs are clear.? No pleural effusions or pneumothorax.? ? Mediastinum:? Mediastinal contours appear normal.? Heart size is normal.? ? Bones and chest wall:? No suspicious bony lesions.? Overlying soft tissues appear unremarkable.? ? ? IMPRESSION:? No acute process. US - abdomen: Radiologist's Impression: PROCEDURE:? US ABDOMEN LIMITED ? INDICATIONS:? RUQ us eval for gb pathology ? TECHNIQUE:? Real-time scanning was performed of the abdominal and retroperitoneal organs, with image documentation.? ? COMPARISON:? None. ? FINDINGS:? ? Liver:? Liver is normal in size and homogeneous in echotexture.? ? Gallbladder:? Distended.? No cholelithiasis.? No wall thickening.? ? Biliary ducts:? Intrahepatic bile ducts are non-dilated.? Extrahepatic bile duct caliber measures 3 mm.? Normal is 6-7 mm or less in diameter, or 10 mm or less post-cholecystectomy.? ? Pancreas:? Visualized portions of the pancreas are sonographically normal.? Pancreatic tail is not well seen. ? ? IMPRESSION:? 1. Gallbladder distention without evidence of cholecystitis. ECG Data Attestation: I personally reviewed and interpreted this ECG as follows: Interpretation: Sinus rhythm Ventricular rate is 73 Normal axis Normal QRS Normal QTC No ST T wave changes MDM Narrative Medical decision making narrative: Physical exam is somewhat concerning for gallbladder pathology given his right upper quadrant abdominal pain. Labs were ordered. Ultrasound was ordered. Patient suddenly had a increase in generalized abdominal pain. Pain medication ordered. Patient's pain is most certainly out of proportion to his exam. CTA of the abdomen and pelvis ordered. Care turned over to Dr. Sosa to follow-up and disposition. <Alon Sosa, DO - Last Filed: 03/27/23 00:53> Lab Data Labs: Lab Results 03/26/23 03/26/23 03/26/23 Range/Units 16:34 17:23 17:23 WBC 10.0 (4.5-11.0) X10^3/uL RBC 4.96 (4.5-5.9) X10^6/uL Hgb 14.6 (13.5-17.5) g/dL Hct 42.0 (41-53) % MCV 84.6 (80-100) fL MCH 29.4 (26-34) PG MCHC 34.8 (30-36) % RDW 13.0 (11.6-14.8) % Plt Count 127 L (150-400) X10^3/uL Neut % (Auto) 78.4 H (50-75) % Lymph % (Auto) 11.6 L (25-40) % Rooks % (Auto) 8.7 (3-14) % Eos % (Auto) 0.7 L (2-4) % Baso % (Auto) 0.6 (0-2) % Neut # (Auto) 7800 H (7426-3485) /uL Lymph # (Auto) 1200 (9484-9084) /uL Rooks # (Auto) 900 (0-900) /uL Eos # (Auto) 100 (0-450) /uL Baso # (Auto) 100 (0-100) /uL PT (10.1-12.7) SECONDS INR (0.9-1.3) APTT (26-36) SECONDS Sodium 139 (137-145) mmol/L Potassium 3.8 (3.4-5.1) mmol/L Chloride 104 (98-107) mmol/L Carbon Dioxide 25 (22-32) mmol/L BUN 17 (9-20) mg/dL Creatinine 1.04 (0.66-1.25) mg/dL Estimated GFR > 60 (>60) mL/min BUN/Creatinine Ratio 16.3 (6-22) Glucose 118 H (80-110) mg/dL Lactate (0.7-2.1) mmol/L Calcium 9.5 (8.4-10.2) mg/dL Total Bilirubin 1.1 (0.2-1.3) mg/dL AST 25 (17-59) IU/L ALT 32 (<50) IU/L Alkaline Phosphatase 62 (38-126) U/L Total Protein 7.5 (6.3-8.2) g/dL Albumin 4.6 (3.5-5.0) g/dL Globulin 2.9 (1.7-4.1) g/dL Albumin/Globulin Ratio 1.6 (1.0-2.8) Lipase 281 (23-300) U/L Procalcitonin (<0.5) ng/mL SARS-CoV-2 (PCR) Negative (Negative) Blood Type Antibody Screen 03/26/23 03/26/23 03/26/23 Range/Units 17:23 17:23 17:23 WBC (4.5-11.0) X10^3/uL RBC (4.5-5.9) X10^6/uL Hgb (13.5-17.5) g/dL Hct (41-53) % MCV (80-100) fL MCH (26-34) PG MCHC (30-36) % RDW (11.6-14.8) % Plt Count (150-400) X10^3/uL Neut % (Auto) (50-75) % Lymph % (Auto) (25-40) % Rooks % (Auto) (3-14) % Eos % (Auto) (2-4) % Baso % (Auto) (0-2) % Neut # (Auto) (7859-3422) /uL Lymph # (Auto) (4761-9188) /uL Rooks # (Auto) (0-900) /uL Eos # (Auto) (0-450) /uL Baso # (Auto) (0-100) /uL PT 12.6 (10.1-12.7) SECONDS INR 1.1 (0.9-1.3) APTT 26 (26-36) SECONDS Sodium (137-145) mmol/L Potassium (3.4-5.1) mmol/L Chloride (98-107) mmol/L Carbon Dioxide (22-32) mmol/L BUN (9-20) mg/dL Creatinine (0.66-1.25) mg/dL Estimated GFR (>60) mL/min BUN/Creatinine Ratio (6-22) Glucose (80-110) mg/dL Lactate 1.4 (0.7-2.1) mmol/L Calcium (8.4-10.2) mg/dL Total Bilirubin (0.2-1.3) mg/dL AST (17-59) IU/L ALT (<50) IU/L Alkaline Phosphatase (38-126) U/L Total Protein (6.3-8.2) g/dL Albumin (3.5-5.0) g/dL Globulin (1.7-4.1) g/dL Albumin/Globulin Ratio (1.0-2.8) Lipase (23-300) U/L Procalcitonin 0.24 (<0.5) ng/mL SARS-CoV-2 (PCR) (Negative) Blood Type Antibody Screen 03/26/23 Range/Units 18:19 WBC (4.5-11.0) X10^3/uL RBC (4.5-5.9) X10^6/uL Hgb (13.5-17.5) g/dL Hct (41-53) % MCV (80-100) fL MCH (26-34) PG MCHC (30-36) % RDW (11.6-14.8) % Plt Count (150-400) X10^3/uL Neut % (Auto) (50-75) % Lymph % (Auto) (25-40) % Rooks % (Auto) (3-14) % Eos % (Auto) (2-4) % Baso % (Auto) (0-2) % Neut # (Auto) (2902-0080) /uL Lymph # (Auto) (0994-7645) /uL Rooks # (Auto) (0-900) /uL Eos # (Auto) (0-450) /uL Baso # (Auto) (0-100) /uL PT (10.1-12.7) SECONDS INR (0.9-1.3) APTT (26-36) SECONDS Sodium (137-145) mmol/L Potassium (3.4-5.1) mmol/L Chloride (98-107) mmol/L Carbon Dioxide (22-32) mmol/L BUN (9-20) mg/dL Creatinine (0.66-1.25) mg/dL Estimated GFR (>60) mL/min BUN/Creatinine Ratio (6-22) Glucose (80-110) mg/dL Lactate (0.7-2.1) mmol/L Calcium (8.4-10.2) mg/dL Total Bilirubin (0.2-1.3) mg/dL AST (17-59) IU/L ALT (<50) IU/L Alkaline Phosphatase (38-126) U/L Total Protein (6.3-8.2) g/dL Albumin (3.5-5.0) g/dL Globulin (1.7-4.1) g/dL Albumin/Globulin Ratio (1.0-2.8) Lipase (23-300) U/L Procalcitonin (<0.5) ng/mL SARS-CoV-2 (PCR) (Negative) Blood Type B Positive Antibody Screen Negative MDM Narrative Medical decision making narrative: Physical exam is somewhat concerning for gallbladder pathology given his right upper quadrant abdominal pain. Labs were ordered. Ultrasound was ordered. Patient suddenly had a increase in generalized abdominal pain. Pain medication ordered. Patient's pain is most certainly out of proportion to his exam. CTA of the abdomen and pelvis ordered. Care turned over to Dr. Sosa to follow-up and disposition. [1800] (Ian) Patient received in sign out from [Reid]. I have reviewed the clinical course and performed an independent history and physical exam. Patient with low-grade fever, body aches and chills with worsening right upper quadrant pain, poor appetite over the past 24 hours or so. A few episodes of very significant pain prompted us to do a further examination for possible vascular abnormality, ultrasound largely unremarkable, however CT angiogram demonstrates findings consistent with cholecystitis. [62] year old patient presents with RUQ pain Multiple etiologies for patient's symptoms considered including, but not limited to: [GB vs. pancreatitis vs. vascular abnormality] Prior Charts reviewed in our EMR Primary Historian: patient Labs reviewed and interpreted by myself: No leukocytosis or left shift, electrolytes and renal function at baseline, LFTs within normal limits Imaging reviewed: Ultrasound without acute findings, CT angiogram demonstrates gallbladder wall thickening and findings consistent with cholecystitis Consultations: Discussed with on-call surgery, Dr. Beth. We have reviewed the case and he agrees with admitting to his service, fluids, pain control, antibiotics and NPO after midnight Discharge Plan Departure Patient Disposition: Admitted As Inpatient Clinical Impression: Acute acalculous cholecystitis Admit Date/Time: 03/26/23 20:27 Admit Provider: Sumit Beth
--- NOTE | 2023-03-26 17:32 | DI.US.S_ITS ---
PROCEDURE: US ABDOMEN LIMITED INDICATIONS: RUQ us eval for gb pathology TECHNIQUE: Real-time scanning was performed of the abdominal and retroperitoneal organs, with image documentation. COMPARISON: None. FINDINGS: Liver: Liver is normal in size and homogeneous in echotexture. Gallbladder: Distended. No cholelithiasis. No wall thickening. Biliary ducts: Intrahepatic bile ducts are non-dilated. Extrahepatic bile duct caliber measures 3 mm. Normal is 6-7 mm or less in diameter, or 10 mm or less post-cholecystectomy. Pancreas: Visualized portions of the pancreas are sonographically normal. Pancreatic tail is not well seen. IMPRESSION: 1. Gallbladder distention without evidence of cholecystitis. Dictated by: Rj Daily M.D. on 03/26/2023 at 18:17 Approved by: Rj Daily M.D. on 03/26/2023 at 18:17
[2023-03-26 17:38] LABS: INR 1.1 (0.9-1.3); Prothrombin Time 12.6 SECONDS (10.1-12.7)
[2023-03-26 17:40] LABS: PTT Partial Thromboplastin Tim 26 SECONDS (26-36)
[2023-03-26 17:41] LABS: Lactate (Lactic Acid) 1.4 mmol/L (0.7-2.1)
[2023-03-26 17:43] LABS: Alanine Aminotransferase 32 IU/L (<50); Albumin 4.6 g/dL (3.5-5.0); Albumin Globulin Ratio 1.6 (1.0-2.8); Alkaline Phosphatase 62 U/L (38-126); Aspartate Aminotransferase 25 IU/L (17-59); BUN Creatinine Ratio 16.3 (6-22); Bilirubin Total 1.1 mg/dL (0.2-1.3); Blood Urea Nitrogen 17 mg/dL (9-20); Calcium 9.5 mg/dL (8.4-10.2); Carbon Dioxide 25 mmol/L (22-32); Chloride 104 mmol/L (98-107); Estimated Glomerular Filt Rate > 60 mL/min (>60); Globulin 2.9 g/dL (1.7-4.1); Glucose 118 mg/dL (80-110); HEMOLYSIS < 15 (0-50); Lipase 281 U/L (23-300); Potassium 3.8 mmol/L (3.4-5.1); Sodium 139 mmol/L (137-145); Total Protein 7.5 g/dL (6.3-8.2)
[2023-03-26] MEDS: MORPHINE 4 MG/ML INJ IV (17:43)
[2023-03-26 17:59] LABS: Procalcitonin 0.24 ng/mL (<0.5)
[2023-03-26] MEDS: HYDROMORPHONE 1 MG INJ IV ×2 (18:13→18:25)
[2023-03-26] MEDS: SODIUM CHLORIDE 0.9% 1,000 ML 150 ML IV (18:20)
--- NOTE | 2023-03-26 18:35 | DI.CT.S_ITS ---
PROCEDURE: CT ANGIO ABDOMEN PELVIS INDICATIONS: Generalized abdominal pain out of proportion TECHNIQUE: After the administration of intravenous contrast, 2.5 mm sections acquired from the diaphragm to the iliac crests. 10 mm maximum intensity projection (MIP) coronal and sagittal reformats were then performed. For radiation dose reduction, the following was used: automated exposure control. COMPARISON: [facility], US ABDOMEN LIMITED, 03/26/2023, 17:46. FINDINGS: Image quality: Excellent. Extravascular tissues: Mild dependent bilateral lower lobe atelectasis. Heart size is normal. Liver is normal in size and enhancement. Gallbladder wall is thickened and there is mild surrounding fat stranding . Biliary system is non dilated. Pancreas enhances normally. Spleen is normal in size and enhancement. No adrenal nodules. Kidneys are normal in size and enhancement, without hydronephrosis. Non-opacified bowel loops demonstrate normal wall thickness and caliber. Normal appendix. No free fluid or air. No retroperitoneal or mesenteric adenopathy. No ventral hernias. No suspicious bony abnormalities. No vertebral body compression fractures. Abdominal aorta: No evidence of aneurysm nor dissection. Mild diffuse plaque. Mesenteric arteries: Celiac, superior and inferior mesenteric arteries are patent. Renal arteries: Renal arteries are patent. IMPRESSION: 1. The arterial tree of the abdomen and pelvis is within normal limits. 2. Gallbladder wall thickening is present, suggestive of cholecystitis. This was not appreciated on the recent ultrasound examination, but is consistent with acute cholecystitis in the appropriate clinical setting. 3. Normal appendix. Dictated by: Rj Daily M.D. on 03/26/2023 at 18:35 Approved by: Rj Daily M.D. on 03/26/2023 at 18:37
[2023-03-26] MEDS: PIPERACILLIN/TAZO 4.5 GM in SODIUM CHLORIDE 0.9% 100 ML IV (20:51)
[2023-03-26] MEDS: SODIUM CHLORIDE 0.9% 1,000 ML 125 ML IV (21:30)
[2023-03-27] VITALS (15 sets, daily range): BP systolic 105–129; BP diastolic 52–69; PULSE 62–89; RESP 13–19; TEMP 36–37.2; O2SAT 93–100; BMI 25.8
--- NOTE | 2023-03-27 | PATH_ITS ---
[facility] Accession Number: [id number] No. of containers..01 Tissue . 01 Material submitted: . gallbladder - GALLBLADDER . 01 Diagnosis: A. Gallbladder, Cholecystectomy: Acute and chronic cholecystitis with transmural acute inflammation with active serositis, edema, and focal mesothelial hyperplasia and reactive changes. No evidence of malignancy. MRV 04/01/2023 1626 Local . 01 Comment: Focally within the serosal surface, benign-appearing small glandular clusters are present, and are interpreted as benign mesothelial inclusions/hyperplasia. Dr. Calvin reviewed this case and concurs with the interpretation. . 01 Electronically signed: . Yelena Goetz MD, Pathologist NPI- [id number] . 01 Gross description: . The specimen is received in formalin labeled with the patient's name, , and gallbladder, consists of an intact gallbladder measuring 9.4 x 3.7 x 2.7 cm. The cystic margin is inked blue with no pericystic lymph node identified. The lumen is filled with green-brown, sludgy bile with no calculi identified in the lumen or the container. The mucosa is red-cooley and trabecular with no discoloration or lesions identified. The lora average 0.4 cm thick. Central Office Operator sections to include the cystic duct margin and full thickness sections are submitted in cassette A1. ([id number]) /MRV 03/28/2023 1243 Local . 01 Pathologist provided ICD-10: K81.2 . 01 CPT . 989770 Performed at: 01 [facility] [address] [place] [address] [address] [facility], [place], [place] [id number] MD Stanley Styles MD Phone: [phone]
[2023-03-27] MEDS: SODIUM CHLORIDE 0.9% 1,000 ML 125 ML IV ×2 (04:21→21:57)
[2023-03-27] MEDS: PIPERACILLIN/TAZO 3.375 GM in SODIUM CHLORIDE 0.9% 100 ML IV ×3 (04:22→21:25)
[2023-03-27] MEDS: HYDROMORPHONE 0.5 MG INJ IV ×2 (04:30→08:15)
--- NOTE | 2023-03-27 12:33 | CM.DANOTE ---
Patient is a 62 yo male who was admitted on 03/26/23 for Abd Pain. Pt has [employer] for insurance and his PCP is Dr. Max Calvillo. EMR was reviewed. Per Surgeon, pt with cholecystitis and recommendation of surgical intervention today for cholecystectomy. Per RN, pt scheduled for 1530 surgery today and pt has been independent in room with family bedside and no concerns noted at this time. Due to the timing of the surgery, unclear if pt will d/c home tonight vs tomorrow. SW attempted to meet bedside with pt but he was finally sleeping soundly and spouse and family member bedside requested SW to come back but did confirm pt and spouse live in [place] and pt works and is independent with ADL's and currently they do not anticipate any discharge planning needs and can provide transport for pt at d/c. Plan: SW to follow closely post surgery later today to confirm safe plan of home with spouse and family support and any further identified discharge planning needs. SUNNY Gandhi Discharge Planning/Care Management CM Discharge Assessment Start: 03/27/23 12:30 Freq: Status: Active Protocol: Document 03/27/23 12:31 BF (Rec: 03/27/23 12:33 BF [id number]) Discharge Planning Assessment Assigned Ceramic Engineer SUNNY Lang DPOA/Assigned Designee Name informally spouse Ariana Contact Information [phone] Advance Directives? Yes Advance Directives on File No History Provided By Patient,Family Member,Medical Record Has Patient been admitted in last 30 No days? Prior Living Arrangements House Household Members spouse Type of transporation used prior to Drives own vehicle admit Independent with ADL's Yes Is patient alert and oriented? Yes Caregiver for Another No Barriers to Discharge No Comment Pending progress after surgery Discharge Plan Home Transportation Arrangement Spouse bedside Referrals Initiated None needed Additional Comment Pending progress after surgery Whiteboard Updated in Patient Room with Yes name and ext. # of Ceramic Engineer Review Status In Process Please Provide Date Initial DC 03/27/23 Assessment Was Performed Next Review Type Continued Stay Review
--- NOTE | 2023-03-27 13:41 | P.HP_ITS ---
History of Present Illness History of Present Illness Date Patient Seen: 03/27/23 Time Patient Seen: 13:41 Chief complaint: abd pain Narrative: 62-year-old man history of GERD presented to the [facility] Emergency Department March 26 with complaint of severe abdominal pain. Sharp postprandial pain beneath the right ribcage. Pain has improved since admission with the use of narcotic medication. No previous similar episodes. At admission WBC 10, total bilirubin 1.1, AST/ALT and lipase within normal limits. Abdominal ultrasound followed by a CT of the abdomen pelvis demonstrates gallbladder wall thickening with pericholecystic fluid. He received Zosyn at admission and his pain is improved but not resolved at this point. [facility] Medical History Anxiety BPH w urinary obs/LUTS BPH w urinary obs/LUTS Cervical spondylosis with radiculopathy Depression Elevated PSA Erectile dysfunction Erectile dysfunction GERD (gastroesophageal reflux disease) Heartburn Impingement syndrome of left shoulder Respiratory infection Shoulder pain Vertigo Surgical History Anesthesia History of hernia repair (~2011) Family History Father Diabetes mellitus History of heart disease Mother History of heart disease Brother History of heart disease Brother Mental health problem Social History household members: spouse Smoking Status: Former smoker alcohol intake: former Meds Home Medications and Allergies Home Medications Medication Instructions Recorded Confirmed Type escitalopram oxalate 20 mg tablet See Rx Instructions .Route 01/02/23 03/26/23 Rx .COMPLEX #90 tabs rosuvastatin 10 mg tablet See Rx Instructions .Route 01/02/23 03/26/23 Rx .COMPLEX #90 tabs esomeprazole magnesium 20 mg 20 mg PO DAILY 03/26/23 03/26/23 History capsule,delayed release (Nexium) Allergies Allergy/AdvReac Type Severity Reaction Status Date / Time No Known Drug Allergies Allergy Verified 03/26/23 16:35 Exam Vital Signs (past 8 hours): - 03/27/23 08:00 03/27/23 12:00 Temperature 98.2 F 98.5 F Pulse Rate 65 66 Respiratory Rate 19 18 Blood Pressure 105/66 119/66 Pulse Oximetry 95 100 Oxygen Flow Rate 0 0 Oxygen Delivery Method Room Air Oxygen Flow Rate 0 Narrative Exam Narrative: GENERAL: A well nourished, well developed adult man, resting comfortably, in no acute distress. HEENT: Normocephalic, atraumatic. No scleral icterus CHEST: Rising symmetrically. No audible wheezes CARDIOVASCULAR: Warm and well perfused. Regular rate ABDOMEN: Positive Tellez sign EXTREMITIES: Normal tone and without edema. NEUROLOGIC: Moving all extremities spontaneously. No gross motor deficits. Objective Labs 03/26/23 17:23 03/26/23 17:23 Labs: Laboratory Results - last 24 hr 03/26/23 03/26/23 03/26/23 16:34 17:23 17:23 WBC 10.0 RBC 4.96 Hgb 14.6 Hct 42.0 MCV 84.6 MCH 29.4 MCHC 34.8 RDW 13.0 Plt Count 127 L Neut % (Auto) 78.4 H Lymph % (Auto) 11.6 L Collin % (Auto) 8.7 Eos % (Auto) 0.7 L Baso % (Auto) 0.6 Neut # (Auto) 7800 H Lymph # (Auto) 1200 Collin # (Auto) 900 Eos # (Auto) 100 Baso # (Auto) 100 PT INR APTT Sodium 139 Potassium 3.8 Chloride 104 Carbon Dioxide 25 BUN 17 Creatinine 1.04 Estimated GFR > 60 BUN/Creatinine Ratio 16.3 Glucose 118 H Lactate Calcium 9.5 Total Bilirubin 1.1 AST 25 ALT 32 Alkaline Phosphatase 62 Total Protein 7.5 Albumin 4.6 Globulin 2.9 Albumin/Globulin Ratio 1.6 Lipase 281 Procalcitonin SARS-CoV-2 (PCR) Negative Blood Type Antibody Screen 03/26/23 03/26/23 03/26/23 17:23 17:23 17:23 WBC RBC Hgb Hct MCV MCH MCHC RDW Plt Count Neut % (Auto) Lymph % (Auto) Collin % (Auto) Eos % (Auto) Baso % (Auto) Neut # (Auto) Lymph # (Auto) Collin # (Auto) Eos # (Auto) Baso # (Auto) PT 12.6 INR 1.1 APTT 26 Sodium Potassium Chloride Carbon Dioxide BUN Creatinine Estimated GFR BUN/Creatinine Ratio Glucose Lactate 1.4 Calcium Total Bilirubin AST ALT Alkaline Phosphatase Total Protein Albumin Globulin Albumin/Globulin Ratio Lipase Procalcitonin 0.24 SARS-CoV-2 (PCR) Blood Type Antibody Screen 03/26/23 18:19 WBC RBC Hgb Hct MCV MCH MCHC RDW Plt Count Neut % (Auto) Lymph % (Auto) Collin % (Auto) Eos % (Auto) Baso % (Auto) Neut # (Auto) Lymph # (Auto) Collin # (Auto) Eos # (Auto) Baso # (Auto) PT INR APTT Sodium Potassium Chloride Carbon Dioxide BUN Creatinine Estimated GFR BUN/Creatinine Ratio Glucose Lactate Calcium Total Bilirubin AST ALT Alkaline Phosphatase Total Protein Albumin Globulin Albumin/Globulin Ratio Lipase Procalcitonin SARS-CoV-2 (PCR) Blood Type B Positive Antibody Screen Negative Assessment & Plan Assessment and plan (1) Acute acalculous cholecystitis: Status: Acute Assessment & Plan narrative: 62-year-old man history of reflux hospitalized with acute acalculous c holecystitis. Laboratory studies and abdominal imaging reviewed demonstrates thickened gallbladder wall with pericholecystic fluid. I reviewed these findings and melanie a picture to illustrate the disease process. We discussed management including antibiotic therapy or cholecystectomy. Following d iscussions preference is to proceed with laparoscopic cholecystectomy. Overview of the operation was discussed. Operative risks including hemorrhage, infection, damage to surrounding structures including biliary system, conversion open discussed. He provides his consent to proceed Quality VTE Deep Vein Thrombosis/Pulmonary Embolism Present on Admission: No
[2023-03-27] MEDS: LACTATED RINGERS 1,000 ML 42 ML IV ×2 (14:45→17:51)
--- NOTE | 2023-03-27 14:59 | PC.NURSE ---
Patient taken to preop this afternoon at approximately 1420. and brother at bedside. Patient voided and denied current n/v, or abdominal pain. VSS, afebrile on RA.
[2023-03-27] MEDS: BUPIVACAINE 0.25% (PF) VIAL 30 ML INJ (17:47)
--- NOTE | 2023-03-27 17:51 | SUR.OPER ---
Supine on padded OR bed, head on pillow, safety belt at thigh, left arm padded and tucked at side. Right arm secured on padded arm board <90 degrees abduction. Legs uncrossed. Padded footboard in place. Tape over blanket to secure lower legs.
--- NOTE | 2023-03-27 18:44 | P.OP_ITS ---
Operative Date/Time/Diagnoses Date of procedure: 03/27/23 Time of procedure: 19:32 Pre-op diagnosis: Acute cholecystitis Post-op diagnosis: same Procedure & Clinicians Procedure: Laparoscopic cholecystectomy Same procedure as scheduled: Yes Indications: 62-year-old man with symptoms and radiographic findings consistent with acute acalculous cholecystitis. He is taken to the operating room for an elective laparoscopic cholecystectomy. Surgeon: Martin Dodd Click Yes if Unassisted: Yes Anesthesia Type: General Operative Notes Findings: Thick walled edematous gallbladder consistent with acute cholecystitis. Specimen(s): other (Gallbladder) Estimated Blood Loss (mL): 50 Procedure in detail: The patient was placed supine on the table and bilateral lower extremity compression devices were applied. Anesthesia was induced they were intubated with an endotracheal tube and had received Zosyn.. A time-out was performed. They were prepped and draped in sterile fashion. An infraumbilical incision was made. The fascia was elevated incised and the abdomen was entered atraumatically. A blunt tip 12mm balloon trocar was then inserted, pneumoperitoneum was established and inspection of the abdomen demonstrated no evidence of injury. They were placed head up and right side up and then a 11 mm port was placed high in the epigastrium and two 5mm in the right upper quadrant. The gallbladder was thick walled distended edematous consistent with acute cholecystitis. It was percutaneously aspirated to facilitate its manipulation. The gallbladder was grasped by the fundus and retracted over the liver and retracted laterally by the infundibulum. Using electrocautery the lateral plane between the gallbladder and the liver was opened towards the fundus. The gallbladder was then retracted laterally and the medial plane was developed in the same manner. With the gallbladder mobilized the bottom of the cystic plate was visualized. The hepatocystic triangle was meticulosly skeletonized with blunt dissection of fat and fibrous tissue from both the front and the back. Only two structures were then clearly seen entering the gallbladder the cystic duct and the cystic artery. With the critical view of safety fully established the cystic duct was clipped twice proximally and once distally using the 10 mm Weck hemoclip applied under direct visualization and then sharply divided. The cystic artery was divided in the same fashion. The gallbladder was removed from the liver bed using electro cautery. The liver bed was then inspected for hemostasis and this was achieved. The abdomen was irrigated with sterile saline and inspection was made that showed the clips in good position. The specimen was removed using Endo-Catch. The abdomen was desufflated. The umbilical fascia was closed with 0 Vicryl in a [id number] fashion under direct visualization. Skin incisions were irrigated and closed with 4-0 Monocryl. 30 ml of 0.25% bupivacaine was infiltrated into the subcutaneous tissue of the incisions. The wounds were sealed with Dermabond. Patient emerged from ane sthesia was extubated and transferred to recovery in stable condition. The sponge and instrument count at the end of the operation was correct. Complications: none Post-operative Condition: stable Disposition: Acute Care
[2023-03-27] MEDS: OXYCODONE IR 5 MG TABLET PO (19:03)
[2023-03-27] MEDS: ESCITALOPRAM 10 MG TABLET 20 MG PO (21:25)
[2023-03-27] MEDS: ATORVASTATIN 20 MG TABLET 10 MG PO (21:25)
[2023-03-28] MEDS: OXYCODONE IR 5 MG TABLET PO ×3 (00:54→08:42)
[2023-03-28] MEDS: ACETAMINOPHEN 325 MG TABLET 650 MG PO ×2 (00:55→06:14)
[2023-03-28 02:11] VITALS: BP 116/65; PULSE 61; RESP 17; TEMP 36.4; O2SAT 96
[2023-03-28] MEDS: PIPERACILLIN/TAZO 3.375 GM in SODIUM CHLORIDE 0.9% 100 ML IV (04:50)
[2023-03-28] MEDS: PANTOPRAZOLE DR 40 MG TABLET PO (06:14)
[2023-03-28] MEDS: SODIUM CHLORIDE 0.9% 1,000 ML 125 ML IV (06:14)
[2023-03-28 07:00] VITALS: O2SAT 94
[2023-03-28 07:25] VITALS: BP 124/71; PULSE 51; RESP 16; TEMP 36.3; O2SAT 94
[2023-03-28] MEDS: CELECOXIB 200 MG CAPSULE PO (08:40)
--- NOTE | 2023-03-28 10:45 | PC.NURSE ---
Patient is A&Ox4, VSS, afebrile on RA. Incisions DISPENSARY TECHNICIAN, CDI to abdomen. He reports pain is sharp to abdomen especially with movement, but well controlled with PRN PO 5mg oxycodone. +BS, x4 hypoactive. He tolerates breakfast well and denies any n/v. MD at bedside this morning clearing patient for discharge home with . Patient and verbalize understanding of medications, activity limitations, site care, s/sx of infection as well as acknowledged folluw up appointment with MD Dodd's office on April 11. He is escorted via w/ch with all belongings to private vehicle with at approximately 10 a.m this a.m. for discharge home.
== END 2023-03-28 10:00 | disposition home or self-care (01) | DRG 419 ==
LOC: ED 20:26 → AC 20:27
PROVIDERS: Emergency Medicine; Surgery; Admitting Provider Surgery; Emergency Provider Emergency Medicine; PCP Family Medicine; Referring Provider Emergency Medicine; Visit Provider Surgery
PROC: 0FT44ZZ Resection of Gallbladder, Percutaneous Endoscopic Approach (ICD-10-PCS; CPT 47562; principal; 2023-03-27 15:30)
DX: K81.0 Acute cholecystitis (principal); K21.9 Gastro-esophageal reflux disease without esophagitis; Z87.891 Personal history of nicotine dependence
CPT/HCPCS: 36415; 47562; 71045; 74174; 76705; 80053; 81003; 83605; 83690; 84145; 85025; 85610; 85730; 86850; 86900; 86901; 87040; 87635; 93005; 96374; 96375; 99222; 99285; C9803; J1100; J1170; J1885; J2250; J2270; J2405; J2543; J3010; Q9967

== ENCOUNTER → 2023-06-26 10:58 | Outpatient (CLI) | payer OTHER, SELFPAY ==
[2023-03-26 20:55] VITALS: BMI 25.8
--- NOTE | 2023-06-26 10:59 | DI.RAD.S_ITS ---
PROCEDURE: XR HIP W PEL IF DONE KEYANNA MIN 4V INDICATIONS: LEFT HIP PAIN TECHNIQUE: AP pelvis with lateral view(s) of the bilateral hip(s). COMPARISON: None. FINDINGS: Bones: No fractures or dislocations. Mild bilateral hip joint degeneration. Pelvic ring appears intact. No suspicious bony lesions. Soft tissues: The visualized bowel gas pattern is normal. No suspicious soft tissue calcifications. IMPRESSION: No acute osseous abnormalities. Mild bilateral hip joint degeneration. Dictated by: Gordon Guadarrama M.D. on 06/26/2023 at 13:31 Approved by: Gordon Guadarrama M.D. on 06/26/2023 at 13:32
--- NOTE | 2023-06-26 10:59 | DI.RAD.S_ITS ---
PROCEDURE: XR LUMBAR SPINE MIN 4V INDICATIONS: LBP AND LEFT HIP PAIN TECHNIQUE: 5 views of the lumbar spine were acquired, including bilateral oblique views. COMPARISON: None. FINDINGS: Bones: 5 nonrib-bearing vertebrae are present. Mild dextrocurvature of the lumbar spine. There is multilevel facet arthropathy, worse at L4-5 and L5-S1. Mild multilevel disc height loss with degenerative endplate changes and spurring is present. This is most pronounced at L5-S1. No vertebral body compression fractures. No suspicious bony lesions. Soft tissues: Overlying bowel gas pattern is normal. No suspicious soft tissue calcifications. Oblique images: No pars defects. IMPRESSION: Mild multilevel degenerative changes of the lumbar spine. Dictated by: Gordon Guadarrama M.D. on 06/26/2023 at 13:33 Approved by: Gordon Guadarrama M.D. on 06/26/2023 at 13:34
== END ==
PROVIDERS: PCP Family Medicine; Referring Provider Physical Medicine & Rehabilitation; Visit Provider Physical Medicine & Rehabilitation
DX: M47.816 Spondylosis without myelopathy or radiculopathy, lumbar region (principal); M47.817 Spondylosis without myelopathy or radiculopathy, lumbosacral region; M16.0 Bilateral primary osteoarthritis of hip; M25.552 Pain in left hip; M54.9 Dorsalgia, unspecified
CPT/HCPCS: 72110; 73522

== ENCOUNTER → 2023-09-03 08:55 | Outpatient (CLI) | payer OTHER, SELFPAY ==
[2023-03-26 20:55] VITALS: BMI 25.8
[2023-09-03 10:33] LABS: Add Manual Diff / Slide Review NO; Basophils Absolute Auto 0 /uL (0-100); Basophils Percent Auto 0.7 % (0-2); Eosinophils Absolute Auto 100 /uL (0-450); Eosinophils Percent Auto 2.5 % (2-4); Hematocrit 44.1 % (41-53); Hemoglobin 15.4 g/dL (13.5-17.5); Lymphocytes Absolute Auto 1600 /uL (1100-4500); Lymphocytes Percent Auto 28.1 % (25-40); Mean Corpuscular HGB Conc 34.9 % (30-36); Mean Corpuscular Hemoglobin 29.4 PG (26-34); Mean Corpuscular Volume 84.5 fL (80-100); Monocytes Absolute Auto 500 /uL (0-900); Monocytes Percent Auto 8.2 % (3-14); Neutrophils Absolute Auto 3500 /uL (1500-7000); Neutrophils Percent Auto 60.5 % (50-75); Platelet Count 149 X10^3/uL (150-400); Red Blood Cell Count 5.22 X10^6/uL (4.5-5.9); Red Cell Distribution Width 13.4 % (11.6-14.8); White Blood Cell Count 5.8 X10^3/uL (4.5-11.0)
[2023-09-03 11:14] LABS: Alanine Aminotransferase 42 IU/L (<50); Albumin 4.6 g/dL (3.5-5.0); Albumin Globulin Ratio 1.8 (1.0-2.8); Alkaline Phosphatase 59 U/L (38-126); Aspartate Aminotransferase 33 IU/L (17-59); BUN Creatinine Ratio 16.4 (6-22); Bilirubin Total 0.9 mg/dL (0.2-1.3); Blood Urea Nitrogen 18 mg/dL (9-20); Calcium 9.7 mg/dL (8.4-10.2); Carbon Dioxide 30 mmol/L (22-32); Chloride 107 mmol/L (98-107); Cholesterol 120 mg/dL (140-199); Estimated Glomerular Filt Rate > 60 mL/min (>60); Globulin 2.6 g/dL (1.7-4.1); Glucose 105 mg/dL (80-110); HDL Cholesterol 37 mg/dL (40-60); HEMOLYSIS < 15 (0-50); LDL Cholesterol Calculated 66 mg/dL (<100); Potassium 4.6 mmol/L (3.4-5.1); Sodium 143 mmol/L (137-145); Total Protein 7.2 g/dL (6.3-8.2); Triglycerides 87 mg/dL (35-150)
[2023-09-03 12:00] LABS: Prostate Specific Antigen Scrn 0.562 ng/mL (0.1-4.0)
[2023-09-04 08:55] LABS: Apolipoprotein B 68 mg/dL (<90)
== END ==
LOC: LAB 08:55
PROVIDERS: PCP Family Medicine; Referring Provider Family Medicine; Visit Provider Family Medicine
DX: Z00.00 Encounter for general adult medical examination without abnormal findings (principal); F41.9 Anxiety disorder, unspecified; E78.5 Hyperlipidemia, unspecified; Z12.5 Encounter for screening for malignant neoplasm of prostate
CPT/HCPCS: 36415; 80053; 80061; 82172; 85025; G0103

== ENCOUNTER → 2024-05-06 13:47 | Outpatient (CLI) | payer BC, SELFPAY ==
[2024-04-22 10:16] VITALS: BMI 25.8
--- NOTE | 2024-05-06 13:48 | DI.RAD.S_ITS ---
PROCEDURE: XR CHEST 2V INDICATIONS: cough 10 days, already had antibiotics TECHNIQUE: 2 views of the chest were acquired. COMPARISON: [facility], CR, XR CHEST 1V, 03/26/2023, 17:07. FINDINGS: Surgical changes and devices: None. Lungs and pleura: Lungs are clear. No pleural effusions or pneumothorax. Mediastinum: Mediastinal contours are normal. Heart size is normal. Bones and chest wall: No suspicious bony abnormalities. Soft tissues appear unremarkable. IMPRESSION: No acute cardiopulmonary abnormality is seen. Approved by: Goyo Handy M.D. on 05/08/2024 at 10:26
== END ==
PROVIDERS: PCP Family Medicine; Referring Provider Physician Assistant; Visit Provider Physician Assistant
DX: J06.9 Acute upper respiratory infection, unspecified (principal); R05.1 Acute cough
CPT/HCPCS: 0241U; 71046

== ENCOUNTER → 2024-05-06 13:47 | Outpatient (CLI) | payer BC, SELFPAY ==
[2024-04-22 10:16] VITALS: BMI 25.8
[2024-05-06 16:15] LABS: Influenza A - CEPHEID Flu A NEGATIVE (NEGATIVE); Influenza B - CEPHEID Flu B NEGATIVE (NEGATIVE); Respiratory Syncytial Virus Negative (Negative)
[2024-05-06 17:18] LABS: COVID-19 CEPHEID 4-PLEX PCR Negative (Negative)
== END ==
PROVIDERS: PCP Family Medicine; Visit Provider Physician Assistant
DX: R05.1 Acute cough (principal)
CPT/HCPCS: 0241U

== ENCOUNTER → 2024-09-15 09:07 | Outpatient (CLI) | payer BC, SELFPAY ==
[2024-04-22 10:16] VITALS: BMI 25.8
[2024-09-15 09:51] LABS: Add Manual Diff / Slide Review NO; Basophils Absolute Auto 0 /uL (0-100); Basophils Percent Auto 0.5 % (0-2); Eosinophils Absolute Auto 200 /uL (0-450); Eosinophils Percent Auto 2.8 % (2-4); Hematocrit 43.2 % (41-53); Lymphocytes Absolute Auto 1500 /uL (1100-4500); Mean Corpuscular HGB Conc 34.8 % (30-36); Mean Corpuscular Hemoglobin 29.4 PG (26-34); Mean Corpuscular Volume 84.4 fL (80-100); Monocytes Absolute Auto 500 /uL (0-900); Neutrophils Absolute Auto 3400 /uL (1500-7000); Neutrophils Percent Auto 60.7 % (50-75); Platelet Count 156 X10^3/uL (150-400); Red Blood Cell Count 5.12 X10^6/uL (4.5-5.9); Red Cell Distribution Width 13.1 % (11.6-14.8); White Blood Cell Count 5.6 X10^3/uL (4.5-11.0)
[2024-09-15 10:06] LABS: Alanine Aminotransferase 41 IU/L (<50); Albumin 4.9 g/dL (3.5-5.0); Albumin Globulin Ratio 2.2 (1.0-2.8); Alkaline Phosphatase 54 U/L (38-126); Aspartate Aminotransferase 37 IU/L (17-59); BUN Creatinine Ratio 16.9 (6-22); Bilirubin Total 1.1 mg/dL (0.2-1.3); Blood Urea Nitrogen 20 mg/dL (9-20); Calcium 9.6 mg/dL (8.4-10.2); Carbon Dioxide 25 mmol/L (22-32); Chloride 105 mmol/L (98-107); Cholesterol 137 mg/dL (140-199); Estimated Glomerular Filt Rate > 60 mL/min (>60); Globulin 2.2 g/dL (1.7-4.1); Glucose 116 mg/dL (80-110); HDL Cholesterol 37 mg/dL (40-60); HEMOLYSIS < 15 (0-50); LDL Cholesterol Calculated 78 mg/dL (<100); Sodium 141 mmol/L (137-145); Total Protein 7.1 g/dL (6.3-8.2); Triglycerides 110 mg/dL (35-150)
[2024-09-15 10:30] LABS: Prostate Specific Antigen Scrn 0.508 ng/mL (0.1-4.0); TSH w/ Reflex to FT4 1.38 uIU/mL (0.47-4.68)
[2024-09-15 10:44] LABS: Creatinine Urine Random 246.77 mg/dL
[2024-09-15 10:49] LABS: Microalbumin Urine Random 0.9 mg/dL (0-1.6)
[2024-09-16 03:40] LABS: Apolipoprotein B 71 mg/dL (<90)
== END ==
LOC: LAB 09:08
PROVIDERS: PCP Family Medicine; Referring Provider Family Medicine; Visit Provider Family Medicine
DX: Z00.00 Encounter for general adult medical examination without abnormal findings (principal); E78.5 Hyperlipidemia, unspecified; F41.9 Anxiety disorder, unspecified; M54.2 Cervicalgia; N52.9 Male erectile dysfunction, unspecified; G89.29 Other chronic pain; Z12.5 Encounter for screening for malignant neoplasm of prostate
CPT/HCPCS: 36415; 80053; 80061; 82043; 82172; 82570; 84443; 85025; G0103

== ENCOUNTER → 2025-04-08 09:25 | Outpatient (CLI) | payer BC, SELFPAY ==
[2024-04-22 10:16] VITALS: BMI 25.8
== END ==
PROVIDERS: PCP Family Medicine; Visit Provider Chiropractor
DX: R39.15 Urgency of urination (principal)
CPT/HCPCS: 87086

== ENCOUNTER → 2025-04-30 10:31 | Outpatient (CLI) | payer BC, SELFPAY ==
[2024-04-22 10:16] VITALS: BMI 25.8
--- NOTE | 2025-04-30 10:34 | DI.RAD.S_ITS ---
PROCEDURE: XR TIBIA FUBULA RT 2V INDICATIONS: chronic right leg pain TECHNIQUE: 2 views of the tibia and fibula were acquired. COMPARISON: None. FINDINGS: Bones: No fractures or dislocations. No suspicious bony lesions. Soft tissues: No suspicious soft tissue calcifications or masses. No radiopaque foreign body. IMPRESSION: No osseous abnormality. If symptoms persist consider MRI or CT with IV contrast for further evaluation. Dictated by: Ivett Angel RR Interpreted: Satya Espinosa MD on 04/30/2025 at 11:12 Transcribed by: SIENA on 04/30/2025 at 11:13 Approved by: Satya Espinosa M.D. on 04/30/2025 at 14:13
== END ==
LOC: RAD 10:34
PROVIDERS: PCP Family Medicine; Referring Provider Family Medicine; Visit Provider Family Medicine
DX: M79.604 Pain in right leg (principal); G89.29 Other chronic pain
CPT/HCPCS: 73590

== ENCOUNTER → 2025-06-19 08:41 | Outpatient (CLI) | payer BC, SELFPAY ==
[2024-04-22 10:16] VITALS: BMI 25.8
[2025-06-21 09:21] LABS: Prostate Specific Antigen 0.440 ng/mL (0.10-4.00)
== END ==
PROVIDERS: PCP Family Medicine; Referring Provider Urology; Visit Provider Urology
DX: R97.20 Elevated prostate specific antigen [PSA] (principal)
CPT/HCPCS: 36415; 84153